=== PATIENT | female | born 1960 | race Caucasian/White ===

== ENCOUNTER → 2022-05-11 11:07 | Outpatient (BNVA) | payer BC, SELFPAY | PROVIDERS: PCP Family Medicine; Visit Provider Student in an Organized Health Care Education/Training Program | DX: Z13.89 Encounter for screening for other disorder (principal) ==

== ENCOUNTER 2022-07-27 12:01 | Outpatient (REF) | payer BC, SELFPAY ==
[2022-07-27 12:26] LABS: MANUAL DIFF FLAG NO
[2022-07-27 12:59] LABS: Basophils Percent Auto 0.5 % (0-2); Eosinophils Absolute Auto 0.1 X10*3/uL (0.0-0.4); Eosinophils Percent Auto 1.6 % (0-4); Hematocrit 34.8 % (37.0-47.0); Hemoglobin 11.2 g/dl (12.0-16.0); Imm Gran Abs Auto 0.01 X10*3/uL (0.00-0.03); Imm Gran Pct Auto 0.2 % (0.0-0.4); Lymphocytes Absolute Auto 1.6 X10*3/uL (1.2-4.9); Lymphocytes Percent Auto 36.1 % (20-40); Mean Corpuscular HGB Conc 32.2 g/dl (31.0-35.0); Mean Corpuscular Hemoglobin 32.7 pg (27.0-33.0); Mean Corpuscular Volume 101.8 fL (80.0-98.0); Mean Platelet Volume 10.2 fL (9.4-12.3); Monocytes Absolute Auto 0.4 X10*3/uL (0.1-1.2); Monocytes Percent Auto 8.6 % (2-11); Neutrophils Absolute Auto 2.3 x10*3/uL (2.0-8.3); Platelet Count 257 X10*3/uL (160-400); Red Blood Count 3.42 X10*6/uL (4.20-5.50); Red Cell Distribution Width 14.8 % (11.0-16.0); White Blood Count 4.3 X10*3/uL (4.8-10.8)
[2022-07-27 13:13] LABS: Appearance Urine Cloudy; Color Urine Yellow; Glucose Urine UA Negative (Negative); Leukocyte Esterase Urine Negative (Negative); Nitrite Urine Negative (Negative); PH 6.5 (5.0-9.0); Specific Gravity - Urine >= 1.030 (1.005-1.025); Urine Blood Negative (Negative); Urine Ketones Trace mg/dL (Negative); Urine Protein Trace mg/dL (Neg-Trace)
[2022-07-27 13:21] LABS: Bacteria Urine None Seen (None Seen); Hyaline Casts Urine 0-2 /LPF (0-2); RBC Urine 0-2 /HPF (0-2); Squamous Epithelial Cell Urine 0-2 /HPF (0-2); WBC Urine 0-5 /HPF (0-5)
[2022-07-27 13:39] LABS: Alanine Aminotransferase 123 U/L (0-31); Albumin Level 4.1 g/dL (3.5-5.0); Alkaline Phosphatase 80 U/L (39-117); Anion Gap 12 (12-20); Aspartate Amino Transferase 87 U/L (5-31); Bilirubin Total 0.4 mg/dL (0.0-1.0); Blood Urea Nitrogen 16 mg/dL (9-16); C Reactive Protein 0.34 mg/dL (< or = 0.50); Calcium 9.2 mg/dL (8.4-10.2); Carbon Dioxide 26 mmol/L (22-29); Chloride 108 mmol/L (96-108); Estimated Glomerular Filt Rate > 60; Glucose Random 85 mg/dL (60-115); Potassium 4.3 mmol/L (3.3-5.1); Rheumatoid Factor < 13.0 IU/mL (<15.0); Sodium 142 mmol/L (135-145); Total Protein 6.8 g/dL (6.5-8.0)
[2022-07-27 13:39] LABS: Creatinine Urine 150.55 mg/dL; Total Protein Urine Random < 7 mg/dL (<12)
[2022-07-27 13:45] LABS: HBS Num1 0.34 mIU/mL (0-7.99); HBc Num1 0.08 S/CO (0.00-0.79); Hepatitis A Antibody IgM 0.21 Index (0-0.79); Hepatitis B Core Antibody Nonreactive (Nonreactive); Hepatitis B Surface Antigen Negative (Negative); ~HepC Num1 0.12 S/CO (0.00-0.79); ~Hepatitis A Antibody IgM Nonreactive (Nonreactive); ~Hepatitis B Surface Antibody NONREACTIVE (Nonreactive); ~Hepatitis C Antibody Nonreactive (Nonreactive)
[2022-07-27 13:53] LABS: Erythrocyte Sedimentation Rate 14 MM/HR (0-20)
[2022-07-29 19:03] LABS: Anti DNA DS Antibody 3 IU/mL; Antibody to SS-A Antigen <1.0 NEG AI (<1.0 NEG); Antibody to SS-B Antigen <1.0 NEG AI (<1.0 NEG); SM/Ribonucleoprotein Ab >8.0 POS AI (<1.0 NEG); Smith Protein <1.0 NEG AI (<1.0 NEG)
[2022-07-30 01:59] LABS: TS Negative Control Passed; TS Panel A 1; TS Panel B 2; TS Positive Control Passed; TSpotTB Negative (Negative)
[2022-08-01 00:03] LABS: Prot Elec - Albumin 4.2 g/dL (3.8-4.8); Prot Elec - Alpha1 0.2 g/dL (0.2-0.3); Prot Elec - Alpha2 0.6 g/dL (0.5-0.9); Prot Elec - Beta 1 0.4 g/dL (0.4-0.6); Prot Elec - Beta 2 0.3 g/dL (0.2-0.5); Prot Elec - Gamma 1.1 g/dL (0.8-1.7); Prot Elec - Total Protein 6.8 g/dL (6.1-8.1)
[2022-08-02 23:02] LABS: Hexagonal Phase Neutralization Weak Positive (Negative)
[2022-08-02 23:33] LABS: PTT (LAC) Screen 47 sec (<=40); Thrombin Clotting Time 20 sec (13-19)
[2022-08-03 04:38] LABS: IgA 257 mg/dL (70-320); IgG 1131 mg/dL (600-1540); IgM 148 mg/dL (50-300)
[2022-08-03 07:48] LABS: Beta-2 Glycoprotein IgA 2.4 U/mL (<20.0); Beta-2 Glycoprotein IgG <2.0 U/mL (<20.0); Beta-2 Glycoprotein IgM <2.0 U/mL (<20.0)
[2022-08-03 10:59] LABS: Cyclic Citrullinated Peptide <16 UNITS
[2022-08-03 13:29] LABS: Centromere Protein A Ab <11 SI (<11); Centromere Protein B Ab <11 SI (<11); Fibrillarin Ab <11 SI (<11); PM SCL 100 Ab <11 SI (<11); PM SCL 75 Ab <11 SI (<11); RNA Polymerase III RP11 Ab <11 SI (<11); RNA Polymerase III RP155 Ab <11 SI (<11); SCL-70 Extractable Nuclear Ab <11 SI (<11); Th-To Ab <11 SI (<11); U1 SNRNP RNP 70KD <11 SI (<11); U1 SNRNP RNP A 19 SI (<11); U1 SNRNP RNP C <11 SI (<11)
[2022-08-03 13:42] LABS: DNAds, Crithidia Antibody Negative (Negative)
[2022-08-04 14:08] LABS: Cardiolipin IgG Ab <2.0 GPL-U/mL; Cardiolipin IgM Ab <2.0 MPL-U/mL
[2022-08-07 17:59] LABS: Cytosolic 5'nuc 1A Ab IgG <5 Units; Ej Ab <11 SI (<11); HMGCR Ab IgG <2 CU (<20); Jo-1 Ab <11 SI (<11); MDA5 Ab <11 SI (<11); Mi-2 alpha Ab <11 SI (<11); Mi-2 beta Ab <11 SI (<11); NXP-2 (MJ) Ab <11 SI (<11); Oj Ab <11 SI (<11); Pl-12 Ab <11 SI (<11); Pl-7 Ab <11 SI (<11); SRP Ab <11 SI (<11); TIF1 gamma Ab <11 SI (<11)
[2022-08-09 07:08] LABS: Complement C3 93 mg/dL (83-193)
== END 2022-07-27 12:02 | disposition home or self-care (01) ==
LOC: HO.LAB 12:01
PROVIDERS: PCP Family Medicine; Visit Provider Student in an Organized Health Care Education/Training Program
DX: Z11.59 Encounter for screening for other viral diseases (principal); Z11.7 Encounter for testing for latent tuberculosis infection; D68.61 Antiphospholipid syndrome; M32.9 Systemic lupus erythematosus, unspecified; M35.01 Sjogren syndrome with keratoconjunctivitis; R53.83 Other fatigue; M06.9 Rheumatoid arthritis, unspecified; M34.9 Systemic sclerosis, unspecified; Z72.89 Other problems related to lifestyle
CPT/HCPCS: 36415; 80053; 81001; 82595; 82784; 83516; 83520; 84156; 84165; 84182; 84443; 85025; 85597; 85613; 85652; 85730; 86140; 86146; 86147; 86160; 86200; 86225; 86235; 86255; 86334; 86431; 86481; 86704; 86706; 86709; 86803; 87340

== ENCOUNTER 2022-08-25 13:13 | Outpatient (REF) | payer BC, SELFPAY ==
[2022-08-25 14:31] LABS: Alanine Aminotransferase 57 U/L (0-31); Albumin Level 3.9 g/dL (3.5-5.0); Alkaline Phosphatase 70 U/L (39-117); Anion Gap 11 (12-20); Aspartate Amino Transferase 44 U/L (5-31); Bilirubin Total 0.4 mg/dL (0.0-1.0); Blood Urea Nitrogen 13 mg/dL (9-16); Calcium 9.4 mg/dL (8.4-10.2); Carbon Dioxide 30 mmol/L (22-29); Chloride 106 mmol/L (96-108); Estimated Glomerular Filt Rate > 60; Glucose Random 93 mg/dL (60-115); Potassium 4.4 mmol/L (3.3-5.1); Sodium 143 mmol/L (135-145); Total Protein 6.7 g/dL (6.5-8.0)
== END 2022-08-25 13:14 | disposition home or self-care (01) ==
LOC: HO.LAB 13:13
PROVIDERS: PCP Family Medicine; Visit Provider Student in an Organized Health Care Education/Training Program
DX: R74.01 Elevation of levels of liver transaminase levels (principal)
CPT/HCPCS: 36415; 80053

== ENCOUNTER 2022-10-10 12:03 | Outpatient (REF) | payer BC, SELFPAY ==
[2022-10-10 12:15] LABS: MANUAL DIFF FLAG NO
[2022-10-10 13:49] LABS: Basophils Absolute Auto 0.1 X10*3/uL (0.0-0.2); Basophils Percent Auto 1.1 % (0-2); Eosinophils Absolute Auto 0.1 X10*3/uL (0.0-0.4); Hematocrit 36.8 % (37.0-47.0); Hemoglobin 11.9 g/dl (12.0-16.0); Imm Gran Abs Auto 0.01 X10*3/uL (0.00-0.03); Imm Gran Pct Auto 0.2 % (0.0-0.4); Lymphocytes Absolute Auto 1.6 X10*3/uL (1.2-4.9); Lymphocytes Percent Auto 35.5 % (20-40); Mean Corpuscular HGB Conc 32.3 g/dl (31.0-35.0); Mean Corpuscular Hemoglobin 32.2 pg (27.0-33.0); Mean Corpuscular Volume 99.7 fL (80.0-98.0); Monocytes Absolute Auto 0.8 X10*3/uL (0.1-1.2); Monocytes Percent Auto 17.5 % (2-11); Neutrophils Absolute Auto 1.9 x10*3/uL (2.0-8.3); Neutrophils Percent Auto 43.7 % (45-73); Platelet Count 228 X10*3/uL (160-400); Red Blood Count 3.69 X10*6/uL (4.20-5.50); Red Cell Distribution Width 13.7 % (11.0-16.0); White Blood Count 4.4 X10*3/uL (4.8-10.8)
[2022-10-10 14:33] LABS: Erythrocyte Sedimentation Rate 16 MM/HR (0-20)
[2022-10-11 02:15] LABS: Alanine Aminotransferase 24 U/L (0-31); Albumin Level 3.9 g/dL (3.5-5.0); Alkaline Phosphatase 81 U/L (39-117); Anion Gap 10 (12-20); Aspartate Amino Transferase 27 U/L (5-31); Bilirubin Total 0.3 mg/dL (0.0-1.0); Blood Urea Nitrogen 18 mg/dL (9-16); Calcium 9.1 mg/dL (8.4-10.2); Carbon Dioxide 29 mmol/L (22-29); Chloride 108 mmol/L (96-108); Estimated Glomerular Filt Rate 51; Potassium 3.9 mmol/L (3.3-5.1); Sodium 143 mmol/L (135-145); Total Protein 7.1 g/dL (6.5-8.0)
[2022-10-11 08:15] LABS: Glucose Random 46 mg/dL (60-115)
== END 2022-10-10 12:04 | disposition home or self-care (01) ==
LOC: HO.LAB 12:03
PROVIDERS: PCP Family Medicine; Visit Provider Student in an Organized Health Care Education/Training Program
DX: M35.1 Other overlap syndromes (principal); R74.01 Elevation of levels of liver transaminase levels
CPT/HCPCS: 36415; 80053; 85025; 85652; 86140

== ENCOUNTER 2022-11-07 14:20 | Outpatient (AMB) | payer BC, SELFPAY ==
--- NOTE | 2022-11-07 14:23 | MHC.OFFVIS ---
Intake Vital Signs 11/07/22 14:25 Height 5 ft 4 in Weight 176 lb 5.917 oz BMI 30.3 BP 122/68 Blood Pressure Location Rt brachial Position Sitting Pulse 80 Pulse Source Pulse Oximeter Temp 97.1 F Temp Source Skin Pulse Oximetry (%) 98 Intake Visit Reasons: Sjogren's/MCTD Student Services Rep Required: No Allergies No Known Allergies Allergy (Verified 11/07/22 14:25) Medication List - Last Reconciled 11/07/22 by Jackelin Fontenot MD cevimeline 1 cap PO TID cholecalciferol (vitamin D3) 25 mcg PO DAILY cyclosporine 0.05% drps ophthalmic (eye) folic acid 2 mg PO DAILY gabapentin 800 mg (2 x 400 mg) PO BEDTIME hydroxychloroquine (Plaquenil) 200 mg PO BID methotrexate sodium 22.5 mg (9 x 2.5 mg) PO QWEEK trazodone 50 mg PO BEDTIME PRN HPI HPI Comments History of Present Illness Details 62-year-old female with an overlap syndrome (MCTD/Sjogren's/some features of SLE) presents for follow-up. She has been holding her methotrexate for the last 7-8 weeks. She states that she feels a little worse overall. She states that she has been having morning stiffness of her hands. Similar to how her symptoms were when she was initially diagnosed but not nearly as severe. Morning stiffness lasts about 30 minutes. Denies any significant swelling. States that she is having more brain fog and forgetfulness. She did not have brain fog with methotrexate. Also states that her dry mouth is a little bit worse. States that cevimeline causes nighttime incontinence and she stopped using it. Denies any cough or shortness of breath. Denies any skin rashes. Initial history: This is a 62-year-old female who was referred for evaluation of mixed connective tissue disease. Her previous grain spouter left the practice. Patient stated that she has had Raynaud's since her 20s and 30s. In 2017 she started having progressively worsening arthralgias. She was diagnosed with mixed connective tissue disease. She was started on hydroxychloroquine with some improvement and methotrexate was added around 2019 with good response. She was diagnosed with Sjogren's around 2019 due to dry eyes and dry mouth. She is currently on Restasis eyedrops and uses cevimeline for dry mouth once daily. Patient's symptoms have been fairly well controlled on methotrexate and hydroxychloroquine. She had a COVID infection 2 and half weeks ago with fevers, worsening body aches and, shortness, loss of taste and smell some cough. Her symptoms are improving. Stated that Raynaud symptoms were worse when she had COVID. She took Paxlovid course. Patient also mentions that she had abrupt onset of bilateral hearing loss in her 40s. No cause for her hearing loss was determined. Eventually it was attributed to an autoimmune condition. Patient denies dysphagia. She denies any shortness of breath. At baseline patient is able to climb 24 steps at home without shortness of breath [facility] Medical History (Updated 11/07/22 @ 15:41 by Jackelin Fontenot MD) Transaminitis Palpitations Ovarian cyst Hearing loss Surgical History Hx of knee surgery Hx of tonsillectomy Family History Maternal Grandmother Raynaud disease Osteoarthritis Sister Rheumatoid arthritis Mother Colon cancer Father Congestive heart failure Social History Alcohol intake: current Alcohol intake frequency: other Patient Tobacco Use Status: Current someday Tobacco user e-Cigarette/Vaping Use: Never Used Review of Systems Const Reports fatigue and Reports weakness Eyes Reports dry eyes ENT Reports dizziness and Reports dry mouth Card Reports no additional complaints and Reports dyspnea Resp Reports dyspnea GI Reports no additional complaints Musc Reports arthralgias and Reports stiffness Neuro Reports dizziness and Reports weakness Endo Reports fatigue Physical Exam Vital Signs: Last Vital Signs Temp 97.1 F 11/07/22 14:25 Pulse 80 11/07/22 14:25 BP 122/68 11/07/22 14:25 Pulse Ox 98 11/07/22 14:25 BMI result Body Mass Index 30.3 Const General: cooperative, healthy appearing and comfortable Nutritional Appearance: overweight Limitations: no limitations HEENT Other: Reduced hearing bilaterally. Uses hearing aids bilaterally Head: Yes normocephalic and Yes atraumatic Mouth: Normal oral and palatal mucosa present Resp Effort & Inspection: normal respiratory effort and able to speak in complete sentences Auscultation: clear to auscultation bilaterally Cardio Rate: regular rate Rhythm: regular rhythm Heart sounds: S1 normal heart sound present and S2 normal heart sound present GI Inspection: No distended Palpation (GI): Soft to palpation and nontender Skin Other: Dry skin on her fingers and palms Extrem Other: No active synovitis. Normal nailfold capillaroscopy Results Reviewed Results Reviewed: DEXA 09/2021? Impression L-spine T-score -0.1 Left femoral neck T-score -1.1 Right total right proximal femur T-score -0.6 labs 12/2021 C4 20 (17-52) C3 80 (90-207) DsDNA 8 (>4 normal 5-9 indeterminate >10 positive) CRP normal ESR normal BMP normal CBC unremarkable Assessment & Plan Assessment & Plan (1) Mixed connective tissue disease: Comment: dx 2017 (Raynaud's, arthralgias, dry eye under states this, dry mouth, fatigue, +++ STUDENT EDUCATION SPECIALIST, 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) HCQ 2017 MTX added 2019 effective Code(s): M35.1 - Other overlap syndromes Plan: This is a 62-year-old female with an overlap syndrome including mixed connective tissue disease and Sjogren's, some features of SLE who presents for follow-up. Patient states that she is doing worse in regards to her fatigue, brain fog, arthralgias when methotrexate was discontinued. Will restart methotrexate at a lower dose. Start methotrexate 15 mg once weekly and folic acid daily. Continue hydroxychloroquine 200 mg Twice daily We discussed screening tests for I LD and pulmonary arterial hypertension given her diagnosis of MCTD and Sjogren's. Will order PFTs and a 2D echo Labs before next visit in 3 months (2) Sjogren syndrome with keratoconjunctivitis: Code(s): M35.01 - Sjogren syndrome with keratoconjunctivitis Plan: Patient currently on cyclosporine eyedrops. Continue to follow with Ophthalmology. Continue Biotene mouthwash. Cevimeline was minimally helpful and caused nocturnal incontinence. (3) Raynaud disease: Code(s): I73.00 - Raynaud's syndrome without gangrene Qualifiers: Raynaud?s-associated gangrene presence: without gangrene Qualified Code(s): I73.00 - Raynaud's syndrome without gangrene Plan: Symptoms are well controlled using conservative measures such as gloves and heated mittens. Plan I spent 27 minutes reviewing patient's chart, evaluating patient, ordering diagnostic workup, counseling patient and documenting in the chart Orders: Orders Comprehensive Met. Panel 3 Months M35.1 - Other overlap syndromes Protein Creatinine Ratio, Ur 3 Months M35.1 - Other overlap syndromes PFT pulmonary function test Today R06.00 - Dyspnea, unspecified CA echo transthoracic complete Today R06.00 - Dyspnea, unspecified Complete Blood Count Auto Diff 3 Months M35.1 - Other overlap syndromes Erythrocyte Sedimentation Rate 3 Months M35.1 - Other overlap syndromes Anti DNA DS Antibody 3 Months M35.1 - Other overlap syndromes Complement C3 3 Months M35.1 - Other overlap syndromes Complement C4 3 Months M35.1 - Other overlap syndromes UA w Microscopic 3 Months M35.1 - Other overlap syndromes Medications: New methotrexate sodium 15 mg (6 x 2.5 mg) PO QWEEK 72 tabs 0RF Coding Level of Care Code Est Pt Level 4 (64115) Diagnoses Mixed connective tissue disease M35.1 Sjogren syndrome with keratoconjunctivitis M35.01 Raynaud's disease without gangrene I73.00 Raynaud?s-associated gangrene presence: without gangrene
[2022-11-07 14:25] VITALS: BP 122/68; PULSE 80; TEMP 36.2; O2SAT 98; BMI 30.3
== END 2022-11-07 15:03 | disposition home or self-care (01) ==
PROVIDERS: PCP Family Medicine; Referring Provider Family Medicine; Visit Provider Student in an Organized Health Care Education/Training Program
DX: M35.1 Other overlap syndromes (principal); M35.01 Sjogren syndrome with keratoconjunctivitis; I73.00 Raynaud's syndrome without gangrene
CPT/HCPCS: 99214

== ENCOUNTER → 2022-11-07 14:20 | Outpatient (BNVA) | payer BC, SELFPAY | PROVIDERS: PCP Family Medicine; Referring Provider Family Medicine; Visit Provider Student in an Organized Health Care Education/Training Program ==

== ENCOUNTER → 2022-12-20 13:59 | Outpatient (REF) | payer BC, SELFPAY ==
--- NOTE | 2022-12-20 14:01 | CA_ITS ---
Transthoracic Echocardiogram Patient (Last, First, Middle): Caroline Cabrera, Gender: Female Date of : 1960 Age: 62 Procedure Date: 12/20/2022 Procedure Type: Transthoracic Echocardiogram Location: OP Height: 162.56 cm Weight: 77.11 kg BSA: 1.83 m2 Heart Rate: bpm BP: 130 / 70 mmHg Crime Specialist: ALEXYS/BASSAM Referring MD: Jackelin Fontenot MD Pattern Grader: Tyrone Ware MD Symptoms: R06.00 - Dyspnea, unspecified Study Quality: Fair ECG Rhythm: Sinus Conclusions: - 1. Normal LV systolic and diastolic function 2. Mild mitral regurgitation 3. Normal RV systolic pressure 4. No gross pericardial effusion Findings Left Ventricle Normal left ventricular size, thickness, and systolic function. The visually estimated ejection fraction is between 55-60%. Spectral Doppler is indicative of a normal filling pattern. Peak GLS is -19.7%, within normal limits. Right Ventricle Normal right ventricular cavity size and systolic function. Atria Both atria are normal in size. There is no evidence of interatrial shunt. Aortic Valve Normal aortic valve structure and function. There is no aortic valve stenosis. There is no aortic valve regurgitation. Mitral Valve Normal mitral valve structure and function. There is mild mitral valve regurgitation. There is no mitral valve stenosis. Pulmonic Valve The pulmonic valve is likely normal. There is trace pulmonic valve regurgitation. Tricuspid Valve Normal tricuspid valve structure. There is trace tricuspid valve regurgitation. The right ventricular systolic pressure is normal. The right ventricular systolic pressure is 19 mmHg. Normal right atrial pressure. There is no evidence of pulmonary hypertension. Great Vessels All visible segments of the aorta are normal in size. The pulmonary artery was not well visualized. Venous The inferior vena cava is normal in size and collapses greater than 50% with inspiration. Pericardium/Pleural There is no evidence of pericardial effusion. Prior Study Comparison No significant change compared to prior study dated: 06/21/2019. Measurements 2D Linear Measurements IVSd: 0.89 0.6-0.9/0.6-1.0 cm LVIDd: 4.74 3.9-5.3/4.2-5.9 cm LVIDd Index: 2.59 2.4-3.2/2.2-3.1 cm/m2 LVIDs: 3.20 2.0-3.6 cm LVPWd: 1.05 0.7-1.1 cm LA Diam: 3.90 2.7-3.8/3.0-4.0 cm LAIDs Index: 2.13 1.5-2.3 cm/m2 LV Mass: 199.66 67-162/88-224 g LV Mass Index: 109.11 43-95/49-115 g/m2 LVOT Diam: 2.20 3.0+(-)1.3 cm 2D Systolic Function EF 4C: 60.40 >55% EF 2C: 52.50 >55% EF BiP: 56.50 >55% Mitral Valve MV Pk E: 0.66 MV PK A: 0.59 MV Decel Time: 218.00 E/A: 1.10 E'Lateral: 9.46 E'Medial: 6.74 E/E' Med: 9.70 E/E' Lat: 6.90 PHT: 64.00 MVA PHT: 3.44 Decel Pacific: 3.01 Aortic Valve AoV Pk Efren: 1.23 AoV Mn Efren: 0.87 AoV VTI: 0.29 AoV Pk Grad: 6.00 Aov Mn Grad: 3.00 KACIE Cont.VTI: 2.66 LVOT LVOT Pk Efren: 1.01 LVOT Mn Efren: 0.63 LVOT VTI: 0.20 LVOT Pk Grad: 4.00 LVOT Mn Grad: 2.00 LVOT Diam: 2.20 LVOT Area: 3.80 Diastolic Function MV Pk E: 0.66 MV Pk A: 0.59 E/A: 1.10 E'Medial: 6.74 E/E' Med: 9.70 E' Laterial: 9.46 E/E' Lat: 6.90 Right Ventricle TAPSE (mm): 22.80 TVS' Efren: 11.00 Tricuspid Valve TR Pk Efren: 2.02 TR Pk Grad: 16.00 RA Press: 3.00 RVSP: 19.00 Great Vessels Aorta Sinus of Valsalva: 3.17 2.0-3.[address] Ridge: 2.34 1.7-3.4 cm Ao Asc: 3.00 2.1-3.4 cm Updated in Other Vendor System with Status of Final Tyrone Ware MD electronically signed on 12/21/2022 11:54:01 AM with status of Final
== END ==
LOC: HO.CARD 13:59
PROVIDERS: PCP Family Medicine; Visit Provider Student in an Organized Health Care Education/Training Program
DX: R06.00 Dyspnea, unspecified (principal)
CPT/HCPCS: 93306; 93356

== ENCOUNTER → 2022-12-20 14:01 | Outpatient (BNV) | payer BC, SELFPAY | PROVIDERS: PCP Family Medicine; Visit Provider Internal Medicine Cardiovascular Disease | DX: I34.0 Nonrheumatic mitral (valve) insufficiency (principal) | CPT/HCPCS: 93306 ==

== ENCOUNTER 2023-01-09 13:28 | Outpatient (REF) | payer BC, SELFPAY ==
--- NOTE | 2023-01-09 14:28 | PFT_ITS ---
Forced vital capacity 101%, FEV1 84%, FEV1 over FVC ratio is 66. TMR23-90 43% and MVV 80%. Post bronchodilator therapy, there is a small, but significant improvement in FEV1 and HTT34-88. Total lung capacity 89%. Residual volume 79%. Diffusion capacity 89%. CONCLUSION: Moderately severe obstructive airway disorder. Partial reversibility after bronchodilator therapy is noted. Findings consistent with asthma/COPD overlap syndrome. Clinical correlation is recommended. Isaias Shay MD MSB/MODL / [id number]
== END 2023-01-09 13:29 | disposition home or self-care (01) ==
LOC: HO.RESP 13:28
PROVIDERS: PCP Family Medicine; Visit Provider Student in an Organized Health Care Education/Training Program
DX: R06.00 Dyspnea, unspecified (principal)
CPT/HCPCS: 94010; 94727; 94729

== ENCOUNTER → 2023-01-09 14:28 | Outpatient (BNV) | payer BC, SELFPAY | PROVIDERS: PCP Family Medicine; Visit Provider Internal Medicine | DX: R06.09 Other forms of dyspnea (principal) | CPT/HCPCS: 94060; 94727; 94729 ==

== ENCOUNTER 2023-01-27 12:56 | Outpatient (REF) | payer BC, SELFPAY ==
[2023-01-27 13:14] LABS: MANUAL DIFF FLAG NO
[2023-01-27 13:40] LABS: Basophils Percent Auto 0.8 % (0-2); Eosinophils Absolute Auto 0.1 X10*3/uL (0.0-0.4); Eosinophils Percent Auto 1.8 % (0-4); Hematocrit 36.2 % (37.0-47.0); Hemoglobin 11.8 g/dl (12.0-16.0); Lymphocytes Absolute Auto 1.6 X10*3/uL (1.2-4.9); Lymphocytes Percent Auto 41.8 % (20-40); Mean Corpuscular HGB Conc 32.6 g/dl (31.0-35.0); Mean Corpuscular Volume 98.1 fL (80.0-98.0); Mean Platelet Volume 11.2 fL (9.4-12.3); Monocytes Absolute Auto 0.5 X10*3/uL (0.1-1.2); Monocytes Percent Auto 11.9 % (2-11); Neutrophils Absolute Auto 1.7 x10*3/uL (2.0-8.3); Neutrophils Percent Auto 43.7 % (45-73); Platelet Count 190 X10*3/uL (160-400); Red Blood Count 3.69 X10*6/uL (4.20-5.50); Red Cell Distribution Width 15.2 % (11.0-16.0); White Blood Count 3.9 X10*3/uL (4.8-10.8)
[2023-01-27 14:15] LABS: Erythrocyte Sedimentation Rate 14 MM/HR (0-20)
[2023-01-27 14:22] LABS: Appearance Urine Clear; Color Urine Yellow; Glucose Urine UA Negative (Negative); Leukocyte Esterase Urine Negative (Negative); Nitrite Urine Negative (Negative); PH 5.5 (5.0-9.0); Urine Blood Negative (Negative); Urine Ketones Negative (Negative); Urine Protein Negative (Neg-Trace)
[2023-01-27 14:28] LABS: Alanine Aminotransferase 36 U/L (0-31); Albumin Level 3.9 g/dL (3.5-5.0); Alkaline Phosphatase 78 U/L (39-117); Anion Gap 11 (12-20); Aspartate Amino Transferase 42 U/L (5-31); Bilirubin Total 0.4 mg/dL (0.0-1.0); Blood Urea Nitrogen 14 mg/dL (9-16); Carbon Dioxide 28 mmol/L (22-29); Chloride 108 mmol/L (96-108); Estimated Glomerular Filt Rate 58; Glucose Random 88 mg/dL (60-115); Potassium 4.1 mmol/L (3.3-5.1); Sodium 143 mmol/L (135-145)
[2023-01-27 14:42] LABS: RBC Urine 0-2 /HPF (0-2); Squamous Epithelial Cell Urine 0-2 /HPF (0-2); WBC Urine 0-5 /HPF (0-5)
[2023-01-27 14:43] LABS: Bacteria Urine None Seen (None Seen); Hyaline Casts Urine 0-2 /LPF (0-2)
[2023-01-27 14:51] LABS: Creatinine Urine 125.88 mg/dL; Total Protein Urine Random < 7 mg/dL (<12)
[2023-01-30 18:18] LABS: Complement C3 62 mg/dL (83-193)
[2023-01-30 19:13] LABS: Anti DNA DS Antibody 3 IU/mL
[2023-02-01 23:24] LABS: Hexagonal Phase Neutralization Positive (Negative)
[2023-02-02 00:04] LABS: PTT (LAC) Screen 47 sec (<=40); Thrombin Clotting Time 20 sec (13-19)
== END 2023-01-27 12:57 | disposition home or self-care (01) ==
LOC: HO.LAB 12:56
PROVIDERS: PCP Family Medicine; Visit Provider Student in an Organized Health Care Education/Training Program
DX: M35.1 Other overlap syndromes (principal); D68.61 Antiphospholipid syndrome
CPT/HCPCS: 36415; 80053; 81001; 82570; 84156; 85025; 85597; 85598; 85613; 85652; 85670; 85730; 86160; 86225

== ENCOUNTER 2023-02-01 14:28 | Outpatient (AMB) | payer BC, SELFPAY ==
--- NOTE | 2023-02-01 14:32 | MHC.OFFVIS ---
Intake Vital Signs 02/01/23 14:34 Height 5 ft 4 in Weight 179 lb 10.828 oz BMI 30.8 BP 134/62 Blood Pressure Location Lt brachial Position Sitting Pulse 81 Pulse Source Pulse Oximeter Temp 97 F Temp Source Skin Pulse Oximetry (%) 98 Oxygen Delivery Method Room Air Intake Visit Reasons: Sjogren's/MCTD Intake Note: Pt last seen 11/07/22, presents today for follow up and test results. On mtx and plaquenil. Would like to discuss test results today. 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 On methotrexate 15 mg weekly and hydroxychloroquine 200 mg Twice daily. Patient states that since starting methotrexate the generalized weakness, brain fog, joint pain is improved however she has been having worsening dryness of her mouth and eyes. Doing about the same otherwise Initial history: This is a 62-year-old female who was referred for evaluation of mixed connective tissue disease. 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 Patient stated that she has had Raynaud's since her 20s and 30s. In 2017 she started having progressively worsening arthralgias. She was diagnosed with mixed connective tissue disease. She was started on hydroxychloroquine with some improvement and methotrexate was added around 2019 with good response. She was diagnosed with Sjogren's around 2019 due to dry eyes and dry mouth. She is currently on Restasis eyedrops and uses cevimeline for dry mouth once daily. Patient's symptoms have been fairly well controlled on methotrexate and hydroxychloroquine. She had a COVID infection 2 and half weeks ago with fevers, worsening body aches and, shortness, loss of taste and smell some cough. Her symptoms are improving. Stated that Raynaud symptoms were worse when she had COVID. She took Paxlovid course. Patient also mentions that she had abrupt onset of bilateral hearing loss in her 40s. No cause for her hearing loss was determined. Eventually it was attributed to an autoimmune condition. Patient denies dysphagia. She denies any shortness of breath. At baseline patient is able to climb 24 steps at home without shortness of breath PFSH Medical History Transaminitis Palpitations Ovarian cyst Hearing loss Surgical History Hx of knee surgery Hx of tonsillectomy Family History Maternal Grandmother Raynaud disease Osteoarthritis Sister Rheumatoid arthritis Mother Colon cancer Father Congestive heart failure Social History Alcohol intake: current Alcohol intake frequency: other Patient Tobacco Use Status: Current someday Tobacco user e-Cigarette/Vaping Use: Never Used Review of Systems Const Denies fatigue and Denies fever(s) Eyes Reports dry eyes ENT Reports dry mouth Card Reports no additional complaints and Reports dyspnea on exertion Resp Reports dyspnea on exertion GI Reports no additional complaints Musc Denies arthralgias and Denies joint swelling Endo Denies fatigue Physical Exam Vital Signs: Last Vital Signs Temp 97 F 02/01/23 14:34 Pulse 81 02/01/23 14:34 BP 134/62 02/01/23 14:34 Pulse Ox 98 02/01/23 14:34 Oxygen Delivery Method Room Air 02/01/23 14:34 BMI result Body Mass Index 30.8 Const General: cooperative, healthy appearing and comfortable Nutritional Appearance: overweight Limitations: no limitations HEENT Other: Reduced hearing bilaterally. Uses hearing aids bilaterally Head: Yes normocephalic and Yes atraumatic Mouth: Normal oral and palatal mucosa present Resp Effort & Inspection: normal respiratory effort and able to speak in complete sentences Auscultation: clear to auscultation bilaterally Cardio Rate: regular rate Rhythm: regular rhythm Heart sounds: S1 normal heart sound present and S2 normal heart sound present GI Inspection: No distended Palpation (GI): Soft to palpation and nontender Skin Other: Dry skin on her fingers and palms Extrem Other: No active synovitis. Normal nailfold capillaroscopy Results Reviewed Results Reviewed: DEXA 09/2021? 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 Methotrexate was restarted last visit with improvement in break fog, fatigue, joint pain but patient developed recurrent transaminitis. This is likely related to methotrexate. Will need to switch DMARDs. DC methotrexate and folic acid. Discussed risks and benefits of Benlysta. Patient agreed to proceed. Will start prior authorization for Benlysta Continue hydroxychloroquine 200 mg Twice daily She is on cyclosporin eyedrops for dry eyes put? Uses throat coat tea for dry mouth which seems to be helpful 2D echo and PFT were done to screen for ILD and PAH. 2D echo was unremarkable. PFTs showed no signs suggestive of restrictive lung disease Labs before next visit in 3 months (2) Sjogren syndrome with keratoconjunctivitis: Code(s): M35.01 - Sjogren syndrome with keratoconjunctivitis Plan: Patient currently on cyclosporine eyedrops. Continue to follow with Ophthalmology. Continue Biotene mouthwash. Cevimeline was minimally helpful and caused nocturnal incontinence. (3) Raynaud disease: Code(s): I73.00 - Raynaud's syndrome without gangrene Qualifiers: Raynaud?s-associated gangrene presence: without gangrene Qualified Code(s): I73.00 - Raynaud's syndrome without gangrene Plan: Symptoms are well controlled using conservative measures such as gloves and heated mittens. (4) Long-term use of hydroxychloroquine: Code(s): Z79.899 - Other halfway (current) drug therapy Plan: Patient follows up regularly with Ophthalmology. Advised patient to ask her didactic instructor to send me records (5) Shortness of breath on exertion: Code(s): R06.02 - Shortness of breath Plan: Patient complaining of some chest tightness on exertion. PFT showed mild obstructive disease. She has an appointment with Pulmonary Plan I spent 45 minutes reviewing patient's chart, evaluating patient, ordering diagnostic workup, counseling patient and documenting in the chart Orders: Orders Complement C3 3 Months M35.1 - Other overlap syndromes DNA Double Stranded-Crithidia 3 Months M35.1 - Other overlap syndromes Protein Creatinine Ratio, Ur 3 Months M35.1 - Other overlap syndromes Comprehensive Met. Panel 3 Months M35.1 - Other overlap syndromes Anti DNA DS Antibody 3 Months M35.1 - Other overlap syndromes Complement C4 3 Months M35.1 - Other overlap syndromes UA w Microscopic 3 Months M35.1 - Other overlap syndromes Complete Blood Count Auto Diff 3 Months M35.1 - Other overlap syndromes C Reactive Protein 3 Months M35.1 - Other overlap syndromes Erythrocyte Sedimentation Rate 3 Months M35.1 - Other overlap syndromes Medications: Discontinued methotrexate sodium Discontinued Reason: Doctor's Order 15 mg (6 x 2.5 mg) PO QWEEK 72 tabs 0RF Coding Level of Care Code Est Pt Level 4 (06192) Diagnoses Lupus (systemic lupus erythematosus) M32.9 Sjogren syndrome with keratoconjunctivitis M35.01 Raynaud's disease without gangrene I73.00 Raynaud?s-associated gangrene presence: without gangrene Long-term use of hydroxychloroquine Z79.899 Shortness of breath on exertion R06.02
[2023-02-01 14:34] VITALS: BP 134/62; PULSE 81; TEMP 36.1; O2SAT 98; BMI 30.8
== END 2023-02-01 15:04 | disposition home or self-care (01) ==
LOC: HO.RHE 14:28
PROVIDERS: PCP Family Medicine; Visit Provider Student in an Organized Health Care Education/Training Program
DX: M32.9 Systemic lupus erythematosus, unspecified (principal); M35.01 Sjogren syndrome with keratoconjunctivitis; I73.00 Raynaud's syndrome without gangrene; Z79.899 Other long term (current) drug therapy; R06.02 Shortness of breath
CPT/HCPCS: 99214

== ENCOUNTER → 2023-02-01 14:28 | Outpatient (BNVA) | payer BC, SELFPAY | PROVIDERS: PCP Family Medicine; Visit Provider Student in an Organized Health Care Education/Training Program ==

== ENCOUNTER 2023-03-03 13:14 | Outpatient (AMB) | payer BC, SELFPAY ==
--- NOTE | 2023-03-03 13:21 | MHC.OFFVIS ---
Intake Vital Signs 03/03/23 13:22 Height 5 ft 4 in Weight 179 lb 10.828 oz BMI 30.8 BP 118/60 Blood Pressure Location Lt brachial Position Sitting Pulse 77 Pulse Source Pulse Oximeter Pulse Oximetry (%) 97 Oxygen Delivery Method Room Air Intake Visit Reasons: Chronic obstructive pulmonary disease Access Lead Required: No Allergies No Known Allergies Allergy (Verified 03/03/23 13:25) HPI HPI Comments History of Present Illness Details The patient is here for a pulmonary evaluation. The patient is a 62 year woman with a known history of a mixed connective tissue disorder being followed closely by Rheumatology. She had been on methotrexate for a long time however, there was some liver issues and therefore now be switching over to a new agent, Benlysta. She has also been on the hydrochloroquine which she tolerates well. She notices that time she has some episodes of chest tightness. Substernal pressure. This is intermittent. Sometimes aggravated by cold air sometimes by exercise. She was unsure if it was hard or her lungs. She did undergo a CT scan of the chest some where it could Freddy. I will request the report. In addition to that she underwent an echocardiogram which is reassuring. The patient also had pulmonary function studies. The PFTs were personally by me demonstrating what appears to be a partially reversible obstruction. It also significant airway disease this is suspicious of uncontrolled asthma or in her case for likely bronchiolitis related to her underlying connective tissue disease. In any case it will be still treated similarly so therefore will start her on respiratory therapy. If the patient does not respond to the therapy then we can consider additional testing at that point. I am going to prescribe her Symbicort. I did recommend she start Symbicort 1 puff twice a day as needed. She can always increase it to 2 puffs if she needs additional medication. PFSH Medical History Transaminitis Palpitations Ovarian cyst Hearing loss Surgical History Hx of knee surgery Hx of tonsillectomy Family History Maternal Grandmother Raynaud disease Osteoarthritis Sister Rheumatoid arthritis Mother Colon cancer Father Congestive heart failure Social History Alcohol intake: current Alcohol intake frequency: other Patient Tobacco Use Status: Current someday Tobacco user e-Cigarette/Vaping Use: Never Used Review of Systems Const Denies fever(s) Eyes Reports dry eyes ENT Reports dry mouth Card Denies chest pain and Reports dyspnea on exertion Resp Reports dyspnea on exertion and Denies wheezing GI Reports no additional complaints Reports no additional complaints Musc Reports as per HPI, Reports joint swelling and Reports stiffness Skin/Breast Denies rash [place]/Lymph Denies lymphadenopathy Aller/Immun Denies wheezing Physical Exam Vital Signs: Last Vital Signs Pulse 77 03/03/23 13:22 BP 118/60 03/03/23 13:22 Pulse Ox 97 03/03/23 13:22 Oxygen Delivery Method Room Air 03/03/23 13:22 BMI result Body Mass Index 30.8 Const General: comfortable HEENT Head: Yes normocephalic Neck Neck: Yes supple Chest Chest palpation & inspection: normal inspection of the chest Resp Effort & Inspection: normal respiratory effort and prolonged expiratory phase Auscultation: wheezes and diminished lung sounds Cardio Heart sounds: S1 normal heart sound present and S2 normal heart sound present GI Palpation (GI): Soft to palpation Skin General skin exam: no rashes or lesions noted Extrem General: Yes no clubbing, cyanosis or edema Immunizations pneumoc 20-sapna conj-dip cr(PF) 0.5 mL IM syringe Performing Provider: Mike Kelly MD Performing Location[place] [facility] Administered by: Venita Devi LPN on 03/03/23 14:01 Dose Route Admin Location Dispensed Lot Number Expiration Date [place] 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 0.5 mL IM Left Deltoid 0.5 mL [id number] 09/27/23 [id number] [employer]/ubitus VIS Given Date VIS Provided VIS Publication Date 03/03/23 Single Vaccine 22 Eligibility Eligibility Date Funding Source Not [facility] Eligible 03/03/23 Private Assessment & Plan Assessment & Plan (1) Shortness of breath on exertion: Code(s): R06.02 - Shortness of breath (2) Obstructive airway disease: Comment: Partially reversible obstruction, Asthma versus follicular bronchiolitis Code(s): J44.9 - Chronic obstructive pulmonary disease, unspecified (3) Mixed connective tissue disease: Comment: dx 2017 (Raynaud's, arthralgias, dry eye under states this, dry mouth, fatigue, +++ 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, 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, low C4) HCQ 2017 MTX added 2019 effective Code(s): M35.1 - Other overlap syndromes Plan Start Symbicort Requesting CT chest from [facility] Exercise as tolerated Prevnar 20 given F/U 2-3 months Orders: Orders Pneumococcal 20 Immunization 03/03/23 Z23 - Encounter for immunization Medications: New budesonide-formoterol 160-4.5 mcg/actuation (Symbicort) 2 puffs inhalation BID 30 days 10.2 grams 11RF J44.89 - Other specified chronic obstructive pulmonary disease Coding Level of Care Code New Pt Level 4 (96767) Diagnoses Shortness of breath on exertion R06.02 Obstructive airway disease J44.9 Mixed connective tissue disease M35.1 Time Spent (min) 40
[2023-03-03 13:22] VITALS: BP 118/60; PULSE 77; O2SAT 97; BMI 30.8
== END 2023-03-03 14:16 | disposition home or self-care (01) ==
PROVIDERS: PCP Family Medicine; Visit Provider Hospitalist
DX: R06.02 Shortness of breath (principal); J44.9 Chronic obstructive pulmonary disease, unspecified; M35.1 Other overlap syndromes
CPT/HCPCS: 99204

== ENCOUNTER → 2023-03-03 13:14 | Outpatient (BNVA) | payer BC, SELFPAY | PROVIDERS: PCP Family Medicine; Visit Provider Hospitalist | DX: J44.9 Chronic obstructive pulmonary disease, unspecified (principal); R06.02 Shortness of breath; M35.1 Other overlap syndromes; Z23 Encounter for immunization | CPT/HCPCS: 90471; 90677 ==

== ENCOUNTER 2023-05-03 09:41 | Outpatient (REF) | payer MEDICARE, SELFPAY ==
[2023-05-03 09:41] VITALS: BP 119/65; PULSE 71; RESP 18; TEMP 36.5; O2SAT 97; BMI 29.2
[2023-05-03] MEDS: Acetaminophen 325 MG TABLET 650 MG PO (10:08)
[2023-05-03] MEDS: diphenhydrAMINE HCL 25 MG CAPSULE PO (10:08)
== END 2023-05-03 09:42 | disposition home or self-care (01) ==
LOC: HO.MDS 09:41
PROVIDERS: Visit Provider Student in an Organized Health Care Education/Training Program
DX: M32.9 Systemic lupus erythematosus, unspecified (principal)
CPT/HCPCS: 96365; J0490; J2930

== ENCOUNTER 2023-05-17 09:32 | Outpatient (REF) | payer BC, SELFPAY ==
[2023-05-17 09:36] VITALS: BP 123/66; PULSE 74; RESP 18; TEMP 37; BMI 30.4
[2023-05-17] MEDS: Acetaminophen 325 MG TABLET 650 MG PO (09:46)
[2023-05-17] MEDS: diphenhydrAMINE HCL 25 MG CAPSULE PO (09:46)
[2023-05-17] MEDS: BELIMUMAB IV (10:51)
[2023-05-17] MEDS: SODIUM CHLORIDE 0.9% IV (10:51)
[2023-05-17 11:55] VITALS: BP 119/63; PULSE 66; RESP 16; O2SAT 99
== END 2023-05-17 09:33 | disposition home or self-care (01) ==
LOC: HO.MDS 09:32
PROVIDERS: Visit Provider Student in an Organized Health Care Education/Training Program
DX: M32.9 Systemic lupus erythematosus, unspecified (principal)
CPT/HCPCS: 96365; J0490

== ENCOUNTER 2023-05-25 13:13 | Outpatient (AMB) | payer BC, SELFPAY ==
[2023-05-25 13:21] VITALS: PULSE 76; O2SAT 97; BMI 29.7
--- NOTE | 2023-05-25 13:21 | A.OFFVIS_ITS ---
Intake Vital Signs 05/25/23 13:21 Height 5 ft 4 in Weight 173 lb BMI 29.7 Pulse 76 Pulse Source Pulse Oximeter Pulse Oximetry (%) 97 Oxygen Delivery Method Room Air Intake Visit Reasons: Chronic obstructive pulmonary disease Experience Designer Required: No Allergies No Known Allergies Allergy (Verified 05/25/23 13:22) HPI HPI Comments History of Present Illness Details The patient is a 63 year woman with a known history of a mixed connective tissue disorder being followed closely by Rheumatology. She had been on methotrexate for a long time however, there was some liver issues and therefore now be switching over to a new agent, Benlysta. She has also been on the hydrochloroquine which she tolerates well. She notices that time she has some episodes of chest tightness. Substernal pressure. This is intermittent. Sometimes aggravated by cold air sometimes by exercise. She was unsure if it was hard or her lungs. She did undergo a CT scan of the chest some where it could Jenkins. I will request the report. In addition to that she underwent an echocardiogram which is reassuring. The patient also had pulmonary function studies. The PFTs were personally by me demonstrating what appears to be a partially reversible obstruction. It also significant airway disease this is suspicious of uncontrolled asthma or in her case for likely bronchiolitis related to her underlying connective tissue disease. In any case it will be still treated similarly so therefore will start her on respiratory therapy. If the patient does not respond to the therapy then we can consider additional testing at that point. I am going to prescribe her Symbicort. I did recommend she start Symbicort 1 puff twice a day as needed. She can always increase it to 2 puffs if she needs additional medication. 05/25/2023 the patient is here for a pulm onary follow-up visit. Overall the priya peres has been doing well. She did start the Arnuity inhaler and she has been getting significant improvement. Initially want her to be on Symbicort but she could not get it approved. She noticed significant improvement. She has not had to use her rescue inhaler in the chest pressure sensation have significantly improved. We did again review her PFTs demonstrating the reversible obstruction. 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 The fact that his better is reassuring. I have yet to get the CT scan of the chest that she had a [facility]. Want to make sure she does not have any evidence of any interstitial lung disease mentioned. The patient should either have a repeat CT scan if she has changes on the CT scan or potentially get an x-ray to make sure that we have a baseline. In the meantime she should continue with exercise capacity. She is off the methotrexate at this time and is currently tolerating the Benlysta which is excellent. [facility] Medical History Transaminitis Palpitations Ovarian cyst Hearing loss Surgical History Hx of knee surgery Hx of tonsillectomy Family History Maternal Grandmother Raynaud disease Osteoarthritis Sister Rheumatoid arthritis Mother Colon cancer Father Congestive heart failure Social History Alcohol intake: current Alcohol intake frequency: other Patient Tobacco Use Status: Current someday Tobacco user e-Cigarette/Vaping Use: Never Used Review of Systems Const Denies fever(s) Eyes Reports dry eyes ENT Reports dry mouth Card Denies chest pain and Reports dyspnea on exertion Resp Reports dyspnea on exertion and Denies wheezing GI Reports no additional complaints Reports no additional complaints Musc Reports as per HPI, Reports joint swelling and Reports stiffness Skin/Breast Denies rash [place]/Lymph Denies lymphadenopathy Aller/Immun Denies wheezing Physical Exam Vital Signs: Last Vital Signs Pulse 76 05/25/23 13:21 Pulse Ox 97 05/25/23 13:21 Oxygen Delivery Method Room Air 05/25/23 13:21 BMI result Body Mass Index 29.7 Const General: comfortable HEENT Head: Yes normocephalic Neck Neck: Yes supple Chest Chest palpation & inspection: normal inspection of the chest Resp Effort & Inspection: normal respiratory effort and No prolonged expiratory phase Auscultation: no wheezes and diminished lung sounds Cardio Heart sounds: S1 normal heart sound present and S2 normal heart sound present GI Palpation (GI): Soft to palpation Skin General skin exam: no rashes or lesions noted Extrem General: Yes no clubbing, cyanosis or edema Assessment & Plan Assessment & Plan (1) Shortness of breath on exertion: Code(s): R06.02 - Shortness of breath (2) Obstructive airway disease: Comment: Partially reversible obstruction, Asthma versus follicular bronchiolitis Code(s): J44.9 - Chronic obstructive pulmonary disease, unspecified (3) Mixed connective tissue disease: Comment: dx 2017 (Raynaud's, arthralgias, dry eye under states this, dry mouth, 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
== END 2023-05-25 13:41 | disposition home or self-care (01) ==
PROVIDERS: PCP Family Medicine; Visit Provider Hospitalist
DX: R06.02 Shortness of breath (principal); J44.9 Chronic obstructive pulmonary disease, unspecified; M35.1 Other overlap syndromes
CPT/HCPCS: 99214

== ENCOUNTER → 2023-05-25 13:13 | Outpatient (BNVA) | payer BC, SELFPAY | PROVIDERS: PCP Family Medicine; Visit Provider Hospitalist | DX: Z23 Encounter for immunization (principal) ==

== ENCOUNTER 2023-06-05 11:20 | Outpatient (REF) | payer BC, SELFPAY ==
[2023-06-05 11:33] LABS: MANUAL DIFF FLAG NO
[2023-06-05 12:21] LABS: Basophils Percent Auto 0.8 % (0-2); Eosinophils Percent Auto 0.8 % (0-4); Hematocrit 37.4 % (37.0-47.0); Hemoglobin 12.4 g/dl (12.0-16.0); Imm Gran Abs Auto 0.04 X10*3/uL (0.00-0.03); Imm Gran Pct Auto 0.8 % (0.0-0.4); Lymphocytes Absolute Auto 1.6 X10*3/uL (1.2-4.9); Lymphocytes Percent Auto 31.2 % (20-40); Mean Corpuscular HGB Conc 33.2 g/dl (31.0-35.0); Mean Corpuscular Hemoglobin 31.6 pg (27.0-33.0); Mean Corpuscular Volume 95.4 fL (80.0-98.0); Mean Platelet Volume 10.3 fL (9.4-12.3); Monocytes Absolute Auto 0.5 X10*3/uL (0.1-1.2); Monocytes Percent Auto 9.3 % (2-11); Neutrophils Percent Auto 57.1 % (45-73); Platelet Count 235 X10*3/uL (160-400); Red Blood Count 3.92 X10*6/uL (4.20-5.50); Red Cell Distribution Width 12.8 % (11.0-16.0); White Blood Count 5.2 X10*3/uL (4.8-10.8)
[2023-06-05 12:46] LABS: Appearance Urine Clear; Color Urine Yellow; Glucose Urine UA Negative (Negative); Leukocyte Esterase Urine Negative (Negative); Nitrite Urine Negative (Negative); PH 6.5 (5.0-9.0); Specific Gravity - Urine 1.025 (1.005-1.025); Urine Blood Negative (Negative); Urine Ketones Trace mg/dL (Negative); Urine Protein Negative (Neg-Trace)
[2023-06-05 12:51] LABS: Bacteria Urine None Seen (None Seen); Hyaline Casts Urine 0-2 /LPF (0-2); RBC Urine 0-2 /HPF (0-2); Squamous Epithelial Cell Urine 0-2 /HPF (0-2); WBC Urine 0-5 /HPF (0-5)
[2023-06-05 12:51] LABS: Alanine Aminotransferase 17 U/L (0-31); Alkaline Phosphatase 68 U/L (39-117); Anion Gap 9 (12-20); Aspartate Amino Transferase 25 U/L (5-31); Bilirubin Total 0.4 mg/dL (0.0-1.0); Blood Urea Nitrogen 21 mg/dL (9-16); C Reactive Protein 0.38 mg/dL (< or = 0.50); Calcium 9.4 mg/dL (8.4-10.2); Carbon Dioxide 27 mmol/L (22-29); Chloride 108 mmol/L (96-108); Estimated Glomerular Filt Rate 57; Glucose Random 87 mg/dL (60-115); Potassium 4.5 mmol/L (3.3-5.1); Sodium 139 mmol/L (135-145)
[2023-06-05 13:01] LABS: Erythrocyte Sedimentation Rate 14 MM/HR (0-20)
[2023-06-05 14:05] LABS: Creatinine Urine 151.15 mg/dL; Protein/Creatinine Ratio, Ur 0.06 (<0.2); Total Protein Urine Random 9 mg/dL (<12)
[2023-06-06 11:58] LABS: Complement C3 91 mg/dL (83-193)
[2023-06-08 13:02] LABS: Anti DNA DS Antibody 3 IU/mL
[2023-06-10 00:05] LABS: DNAds, Crithidia Antibody Negative (Negative)
== END 2023-06-05 11:21 | disposition home or self-care (01) ==
LOC: HO.LAB 11:20
PROVIDERS: PCP Family Medicine; Visit Provider Student in an Organized Health Care Education/Training Program
DX: M35.1 Other overlap syndromes (principal)
CPT/HCPCS: 36415; 80053; 81001; 82570; 84156; 85025; 85652; 86140; 86160; 86225; 86255

== ENCOUNTER 2023-06-14 13:59 | Outpatient (AMB) | payer BC, SELFPAY ==
--- NOTE | 2023-06-14 14:07 | MHC.OFFVIS ---
Intake Vital Signs 06/14/23 14:09 Height 5 ft 4 in Weight 175 lb 4.28 oz BMI 30.1 BP 118/64 Blood Pressure Location Rt brachial Position Sitting Pulse 76 Pulse Source Pulse Oximeter Pulse Oximetry (%) 98 Oxygen Delivery Method Room Air Intake Visit Reasons: SLE/MCTD Intake Note: Patient last seen 02/01/23 presents today for follow up and test results. Cooperative Education Coordinator Required: No Accompanied by: Self / Same As Patient Allergies No Known Allergies Allergy (Verified 06/14/23 14:11) Medication List - Last Reconciled 06/14/23 by Jackelin Fontenot MD albuterol sulfate 90 mcg/actuation 2 inhalations inhalation Q6H PRN 30 days albuterol-budesonide 90-80 mcg/actuation (Airsupra) 2 inhalations inhalation BID PRN 30 days belimumab (Benlysta) intravenously every 4 weeks; x3 doses then 10 mg/kg every 4 weeks budesonide 180 mcg/actuation (Pulmicort Flexhaler) 1 inh inhalation BID 30 days budesonide-formoterol 160-4.5 mcg/actuation (Symbicort) 2 puffs inhalation BID 30 days cholecalciferol (vitamin D3) 25 mcg PO DAILY cyclosporine 0.05% drps ophthalmic (eye) fluticasone furoate 100 mcg/actuation (Arnuity Ellipta) 1 inh inhalation DAILY gabapentin 800 mg (2 x 400 mg) PO BEDTIME hydroxychloroquine 200 mg PO BID trazodone 50 mg PO BEDTIME PRN HPI HPI Comments History of Present Illness Details 63-year-old female with an overlap syndrome (MCTD/Sjogren's/ SLE) presents for follow-up. She completed the Benlysta infusions loading dose. Infusions were uneventful except for some fatigue the day after She states that she feels better overall. Much less brain fog. No rashes. No joint pain. She has noticed that her voice is hoarse for the last few months. She denies any cough or shortness of breath. Initial history: This is a 62-year-old female who was referred for evaluation of mixed connective tissue disease. Her previous brand advocate left the practice. Patient stated that she has had Raynaud's since her 20s and 30s. In 2017 she started having progressively worsening arthralgias. She was diagnosed with mixed connective tissue disease. She was started on hydroxychloroquine with some improvement and methotrexate was added around 2019 with good response. She was diagnosed with Sjogren's around 2019 due to dry eyes and dry mouth. She is currently on Restasis eyedrops and uses cevimeline for dry mouth once daily. Patient's symptoms have been fairly well controlled on methotrexate and hydroxychloroquine. She had a COVID infection 2 and half weeks ago with fevers, worsening body aches and, shortness, loss of taste and smell some cough. Her symptoms are improving. Stated that Raynaud symptoms were worse when she had COVID. She took Paxlovid course. Patient also mentions that she had abrupt onset of bilateral hearing loss in her 40s. No cause for her hearing loss was determined. Eventually it was attributed to an autoimmune condition. Patient denies dysphagia. She denies any shortness of breath. At baseline patient is able to climb 24 steps at home without shortness of breath PFSH Medical History Lymphadenopathy Transaminitis Palpitations Ovarian cyst Hearing loss Surgical History Hx of knee surgery Hx of tonsillectomy Family History Maternal Grandmother Raynaud disease Osteoarthritis Sister Rheumatoid arthritis Mother Colon cancer Father Congestive heart failure Social History Alcohol intake: current Alcohol intake frequency: other Patient Tobacco Use Status: Current someday Tobacco user e-Cigarette/Vaping Use: Never Used Female Reproductive History Menstrual Total pregnancies: 3 Full term: 2 Ab spontaneous: 1 Review of Systems Const Denies fatigue and Denies fever(s) ENT Reports hoarseness Resp Reports no additional complaints Musc Denies arthralgias, Denies joint swelling and Denies stiffness Skin/Breast Denies rash Neuro Details: Brain fog improve Endo Denies fatigue Physical Exam Vital Signs: Last Vital Signs Pulse 76 06/14/23 14:09 BP 118/64 06/14/23 14:09 Pulse Ox 98 06/14/23 14:09 Oxygen Delivery Method Room Air 06/14/23 14:09 BMI result Body Mass Index 30.1 Const General: cooperative, healthy appearing and comfortable Nutritional Appearance: overweight Limitations: no limitations HEENT Other: Reduced hearing bilaterally. Uses hearing aids bilaterally Head: Yes normocephalic and Yes atraumatic Mouth: Normal oral and palatal mucosa present and moist mucous membranes Resp Effort & Inspection: normal respiratory effort and able to speak in complete sentences Auscultation: clear to auscultation bilaterally Cardio Rate: regular rate Rhythm: regular rhythm Heart sounds: S1 normal heart sound present and S2 normal heart sound present GI Inspection: No distended Palpation (GI): Soft to palpation and nontender Extrem Other: No active synovitis. Normal nailfold capillaroscopy Results Reviewed Results Reviewed: DEXA 09/2021? 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 DC 01/2023 Benlysta infusions 04/2023 effective Code(s): M32.9 - Systemic lupus erythematosus, unspecified Qualifiers: Systemic lupus erythematosus type: other Systemic lupus erythematosus organ involvement: other Qualified Code(s): M32.19 - Other organ or system involvement in systemic lupus erythematosus Plan: This is a 63-year-old female with SLE returns for follow-up. Patient completed the 3 loading doses for Benlysta. She has been doing quite well overall. Infusions were well tolerated. There are no signs of active SLE on exam. Transaminitis resolved once methotrexate was discontinued Advised patient to lower her hydroxychloroquine into 400 mg x 6 days a week and 200 mg X 1 day a week Patient is concerned with the cost of Benlysta infusions. She has to pay about 800 dollars for every infusion. She will reach her deductible, about 5 months before the end of the year. We discussed alternative options such as leflunomide or azathioprine. I also asked patient to read up on Saphnelo infusions. For now patient will stay with the Benlysta infusions 2D echo and PFT were done to screen for ILD and PAH. 2D echo was unremarkable. PFTs showed no signs suggestive of restrictive lung disease Labs before next visit in 3 months (2) Sjogren syndrome with keratoconjunctivitis: Code(s): M35.01 - Sjogren syndrome with keratoconjunctivitis Plan: Patient currently on cyclosporine eyedrops. Continue to follow with Ophthalmology. Continue Biotene mouthwash. Cevimeline was minimally helpful and caused nocturnal incontinence. (3) Raynaud disease: Code(s): I73.00 - Raynaud's syndrome without gangrene Qualifiers: Raynaud?s-associated gangrene presence: without gangrene Qualified Code(s): I73.00 - Raynaud's syndrome without gangrene Plan: Symptoms are well controlled using conservative measures such as gloves and heated mittens. (4) Long-term use of hydroxychloroquine: Code(s): Z79.899 - Other chcf (current) drug therapy Plan: Patient follows up regularly with Ophthalmology. (5) Shortness of breath on exertion: Code(s): R06.02 - Shortness of breath Plan: Patient complaining of some chest tightness on exertion. PFT showed mild obstructive disease. She was evaluated by extermination inspector and started on inhalers with improvement. CT chest was ordered by Dr. Kelly (6) Hoarseness: Code(s): R49.0 - Dysphonia Plan: Consider ENT evaluation Plan I spent 45 minutes reviewing patient's chart, evaluating patient, ordering diagnostic workup, counseling patient and documenting in the chart Orders: Orders Complete Blood Count Auto Diff 3 Months M32.9 - Systemic lupus erythematosus, unspecified Comprehensive Met. Panel 3 Months M32.9 - Systemic lupus erythematosus, unspecified Complement C4 3 Months M32.9 - Systemic lupus erythematosus, unspecified UA w Microscopic 3 Months M32.9 - Systemic lupus erythematosus, unspecified C Reactive Protein 3 Months M32.9 - Systemic lupus erythematosus, unspecified Erythrocyte Sedimentation Rate 3 Months M32.9 - Systemic lupus erythematosus, unspecified Anti DNA DS Antibody 3 Months M32.9 - Systemic lupus erythematosus, unspecified Complement C3 3 Months M32.9 - Systemic lupus erythematosus, unspecified Protein Creatinine Ratio, Ur 3 Months M32.9 - Systemic lupus erythematosus, unspecified Coding Level of Care Code Est Pt Level 5 (69200) Diagnoses Other systemic lupus erythematosus with other organ involvement M32.19 Systemic lupus erythematosus type: other Systemic lupus erythematosus organ involvement: other Sjogren syndrome with keratoconjunctivitis M35.01 Raynaud's disease without gangrene I73.00 Raynaud?s-associated gangrene presence: without gangrene Long-term use of hydroxychloroquine Z79.899 Shortness of breath on exertion R06.02 Hoarseness R49.0
[2023-06-14 14:09] VITALS: BP 118/64; PULSE 76; O2SAT 98; BMI 30.1
== END 2023-06-14 14:42 | disposition home or self-care (01) ==
PROVIDERS: PCP Family Medicine; Visit Provider Student in an Organized Health Care Education/Training Program
DX: M32.19 Other organ or system involvement in systemic lupus erythematosus (principal); M35.01 Sjogren syndrome with keratoconjunctivitis; I73.00 Raynaud's syndrome without gangrene; Z79.899 Other long term (current) drug therapy; R06.02 Shortness of breath; R49.0 Dysphonia
CPT/HCPCS: 99215

== ENCOUNTER → 2023-06-14 13:59 | Outpatient (BNVA) | payer BC, SELFPAY | PROVIDERS: PCP Family Medicine; Visit Provider Student in an Organized Health Care Education/Training Program ==

== ENCOUNTER 2023-06-21 14:27 | Outpatient (REF) | payer BC, SELFPAY ==
--- NOTE | ~2023-06-21 | US_ITS ---
EXAMINATION: US VENOUS ULTRASOUND WITH DOPPLER LOWER EXTREMITY, BILATERAL CLINICAL INFORMATION: Lower extremity pain, phlebitis COMPARISON: None available. TECHNIQUE: Ultrasound of the deep veins is performed from the hip to the calf with compression sonography and color and pulse Doppler assessment. Spectral analysis with color-flow imaging is performed. FINDINGS: RIGHT: There is normal venous compression and respiratory variation and augmented flow. The visualized common femoral vein, superficial femoral vein, profunda femoral vein, popliteal vein, and the trifurcation region shows no evidence of deep venous thrombosis. There is no significant popliteal fossa cyst. Within the medial distal thigh, there is a dilated subcutaneous varicose vein with internal echogenic thrombus and noncompressibility consistent with superficial thrombophlebitis. LEFT: There is normal venous compression and respiratory variation and augmented flow. The visualized common femoral vein, superficial femoral vein, profunda femoral vein, popliteal vein, and the trifurcation region shows no evidence of deep venous thrombosis. There is no significant popliteal fossa cyst. If the patient's symptoms persist, followup ultrasound in 5 days 7 days might be of value to exclude proximal propagation from a non-visualized calf vein. US/US venous duplex LE BI IMPRESSION: No DVT demonstrated in the bilateral lower extremity. Superficial thrombophlebitis in the right great saphenous vein in the distal thigh
== END 2023-06-21 14:28 | disposition home or self-care (01) ==
LOC: HO.US 14:27
PROVIDERS: PCP Family Medicine; Visit Provider Student in an Organized Health Care Education/Training Program
DX: I80.9 Phlebitis and thrombophlebitis of unspecified site (principal); M79.604 Pain in right leg; M79.605 Pain in left leg
CPT/HCPCS: 93970

== ENCOUNTER 2023-07-14 14:14 | Outpatient (REF) | payer BC, SELFPAY ==
--- NOTE | ~2023-07-14 | CT_ITS ---
EXAMINATION: CT CHEST WITHOUT CONTRAST CLINICAL INFORMATION: Generalized enlarged lymph nodes COMPARISON: 08/02/2019 TECHNIQUE: Multidetector volumetric CT imaging of the chest was done. Axial MIP volume rendering provided. Sagittal and coronal reformatted images were obtained. This CT examination was performed using dose optimization techniques as appropriate, variously including the following: *Automated exposure control *Adjustment of mA and/or kV according to patient size (this includes techniques or standardized protocols for targeted exams where dose is matched to indication/reason for exam; i.e. extremities or head) *Use of iterative reconstruction technique DLP: 128 mGy-cm FINDINGS: LUNGS: No suspicious pulmonary nodule. PLEURA: No pleural effusion. MEDIASTINUM: No cardiomegaly. Aorta and pulmonary artery are normal in caliber. No mediastinal adenopathy. Lack of IV contrast limits evaluation for hilar adenopathy. CORONARY ARTERY CALCIFICATION: No coronary artery calcification appreciated. CHEST WALL/AXILLA: Redemonstration of mildly prominent bilateral axillary lymph nodes, decreased from prior study. UPPER ABDOMEN: Small hiatal hernia. OSSEOUS STRUCTURES: Unremarkable. CT/CT chest wo IV con IMPRESSION: * No suspicious pulmonary nodule. * Redemonstration of mildly prominent bilateral axillary lymph nodes, decreased from prior study. Recommend correlation with mammographic imaging and ultrasound.
== END 2023-07-14 14:15 | disposition home or self-care (01) ==
LOC: HO.CT 14:14
PROVIDERS: PCP Family Medicine; Visit Provider Hospitalist
DX: R59.1 Generalized enlarged lymph nodes (principal); M35.1 Other overlap syndromes; J44.9 Chronic obstructive pulmonary disease, unspecified; R06.02 Shortness of breath
CPT/HCPCS: 71250

== ENCOUNTER 2023-09-11 08:49 | Outpatient (REF) | payer MEDICARE, SELFPAY ==
[2023-09-11 09:03] LABS: MANUAL DIFF FLAG NO
[2023-09-11 09:29] LABS: Eosinophils Absolute Auto 0.1 X10*3/uL (0.0-0.4); Eosinophils Percent Auto 2.2 % (0-4); Hematocrit 39.6 % (37.0-47.0); Hemoglobin 12.9 g/dl (12.0-16.0); Imm Gran Abs Auto 0.01 X10*3/uL (0.00-0.03); Imm Gran Pct Auto 0.2 % (0.0-0.4); Lymphocytes Absolute Auto 1.6 X10*3/uL (1.2-4.9); Lymphocytes Percent Auto 38.4 % (20-40); Mean Corpuscular HGB Conc 32.6 g/dl (31.0-35.0); Mean Corpuscular Hemoglobin 30.6 pg (27.0-33.0); Mean Corpuscular Volume 94.1 fL (80.0-98.0); Mean Platelet Volume 10.1 fL (9.4-12.3); Monocytes Absolute Auto 0.6 X10*3/uL (0.1-1.2); Monocytes Percent Auto 14.4 % (2-11); Neutrophils Absolute Auto 1.8 x10*3/uL (2.0-8.3); Neutrophils Percent Auto 43.8 % (45-73); Platelet Count 236 X10*3/uL (160-400); Red Blood Count 4.21 X10*6/uL (4.20-5.50); Red Cell Distribution Width 13.2 % (11.0-16.0); White Blood Count 4.1 X10*3/uL (4.8-10.8)
[2023-09-11 10:06] LABS: Erythrocyte Sedimentation Rate 11 MM/HR (0-20)
[2023-09-11 10:08] LABS: Alanine Aminotransferase 15 U/L (0-31); Albumin Level 4.2 g/dL (3.5-5.0); Alkaline Phosphatase 59 U/L (39-117); Anion Gap 12 (12-20); Aspartate Amino Transferase 24 U/L (5-31); Bilirubin Total 0.6 mg/dL (0.0-1.0); Blood Urea Nitrogen 15 mg/dL (9-16); C Reactive Protein 0.49 mg/dL (< or = 0.50); Calcium 8.9 mg/dL (8.4-10.2); Carbon Dioxide 28 mmol/L (22-29); Chloride 105 mmol/L (96-108); Estimated Glomerular Filt Rate 53; Glucose Random 85 mg/dL (60-115); Sodium 141 mmol/L (135-145)
[2023-09-11 10:33] LABS: Appearance Urine Clear; Color Urine Yellow; Glucose Urine UA Negative (Negative); Leukocyte Esterase Urine Negative (Negative); Nitrite Urine Negative (Negative); PH 6.5 (5.0-9.0); Specific Gravity - Urine 1.015 (1.005-1.025); Urine Blood Negative (Negative); Urine Ketones Negative (Negative); Urine Protein Negative (Neg-Trace)
[2023-09-11 10:39] LABS: Bacteria Urine None Seen (None Seen); Hyaline Casts Urine 0-2 /LPF (0-2); RBC Urine 0-2 /HPF (0-2); Squamous Epithelial Cell Urine 0-2 /HPF (0-2); WBC Urine 0-5 /HPF (0-5)
[2023-09-11 11:15] LABS: Creatinine Urine 95.16 mg/dL; Total Protein Urine Random < 7 mg/dL (<12)
[2023-09-12 09:52] LABS: Complement C3 95 mg/dL (83-193)
[2023-09-12 21:19] LABS: Anti DNA DS Antibody 2 IU/mL
== END 2023-09-11 08:50 | disposition home or self-care (01) ==
LOC: HO.LAB 08:49
PROVIDERS: PCP Family Medicine; Visit Provider Student in an Organized Health Care Education/Training Program
DX: M32.9 Systemic lupus erythematosus, unspecified (principal)
CPT/HCPCS: 36415; 80053; 81001; 82570; 84156; 85025; 85652; 86140; 86160; 86225

== ENCOUNTER 2023-09-20 13:19 | Outpatient (AMB) | payer MEDICARE, SELFPAY ==
[2023-09-20 13:33] VITALS: BP 112/62; PULSE 76; O2SAT 100; BMI 28.5
--- NOTE | 2023-09-20 13:33 | A.OFFVIS_ITS ---
Vital Signs 09/20/23 13:33 Height 5 ft 4 in Weight 165 lb 12.602 oz BMI 28.5 BP 112/62 Blood Pressure Location Lt brachial Position Sitting Pulse 76 Pulse Source Pulse Oximeter Pulse Oximetry (%) 100 Oxygen Delivery Method Room Air Intake Visit Reasons: SLE/lm Intake Note: Patient last seen on 06/14/23 present today for follow up and test results. Allergies No Known Allergies Allergy (Verified 09/20/23 13:35) Medication List - Last Reconciled 09/20/23 by Jackelin Fontenot MD albuterol sulfate 90 mcg/actuation 2 inhalations inhalation Q6H PRN 30 days albuterol-budesonide 90-80 mcg/actuation (Airsupra) 2 inhalations inhalation BID PRN 30 days belimumab (Benlysta) intravenously every 4 weeks; x3 doses then 10 mg/kg every 4 weeks budesonide 180 mcg/actuation (Pulmicort Flexhaler) 1 inh inhalation BID 30 days budesonide-formoterol 160-4.5 mcg/actuation (Symbicort) 2 puffs inhalation BID 30 days cholecalciferol (vitamin D3) 25 mcg PO DAILY cyclosporine 0.05% drps ophthalmic (eye) fluticasone furoate 100 mcg/actuation (Arnuity Ellipta) 1 inh inhalation DAILY gabapentin 800 mg (2 x 400 mg) PO BEDTIME hydroxychloroquine Take 1 tab twice daily x6 days a week and 1 tab daily X1 day a week trazodone 50 mg PO BEDTIME PRN HPI Comments Details: 63-year-old female with an overlap syndrome (MCTD/Sjogren's/ SLE) presents for follow-up. She remains on Benlysta monthly infusions. On hydroxychloroquine prescribed. She remains on Eliquis 5 mg Twice daily. States that the abnormal achy sensation in her right thigh has resolved She states that she feels better overall. Much less brain fog. No rashes. No joint pain. She has noticed that her voice is hoarse for the last few months. She attributes this to her Sjogren's. She denies any cough or shortness of breath. Initial history: This is a 62-year-old female who was referred for evaluation of mixed connective tissue disease. Her previous systems software engineer left the practice. Patient stated that she has had Raynaud's since her 20s and 30s. In 2017 she started having progressively worsening arthralgias. She was diagnosed with mixed connective tissue disease. She was started on hydroxychloroquine with some improvement and methotrexate was added around 2019 with good response. She was diagnosed with Sjogren's around 2019 due to dry eyes and dry mouth. She is currently on Restasis eyedrops and uses cevimeline for dry mouth once daily. Patient's symptoms have been fairly well controlled on methotrexate and hydroxychloroquine. She had a COVID infection 2 and half weeks ago with fevers, worsening body aches and, shortness, loss of taste and smell some cough. Her symptoms are improving. Stated that Raynaud symptoms were worse when she had COVID. She took Paxlovid course. Patient also mentions that she had abrupt onset of bilateral hearing loss in her 40s. No cause for her hearing loss was determined. Eventually it was attributed to an autoimmune condition. Patient denies dysphagia. She denies any shortness of breath. At baseline patient is able to climb 24 steps at home without shortness of breath [facility] Medical History Lymphadenopathy Transaminitis Palpitations Ovarian cyst Hearing loss Surgical History Hx of knee surgery Hx of tonsillectomy Family History Maternal Grandmother Raynaud disease Osteoarthritis Sister Rheumatoid arthritis Mother Colon cancer Father Congestive heart failure Social History Alcohol intake: current Alcohol intake frequency: other Patient Tobacco Use Status: Current someday Tobacco user e-Cigarette/Vaping Use: Never Used Female Reproductive History Menstrual Total pregnancies: 3 Full term: 2 Ab spontaneous: 1 Review of Systems Const Denies fatigue and Denies fever(s) ENT Reports hoarseness Resp Reports no additional complaints Musc Denies arthralgias, Denies joint swelling and Denies stiffness Skin/Breast Denies rash Endo Denies fatigue Physical Exam Vital Signs: Last Vital Signs Pulse 76 09/20/23 13:33 BP 112/62 09/20/23 13:33 Pulse Ox 100 09/20/23 13:33 Oxygen Delivery Method Room Air 09/20/23 13:33 BMI result Body Mass Index 28.5 Const General: cooperative, healthy appearing and comfortable Nutritional Appearance: overweight Limitations: no limitations HEENT Other: Reduced hearing bilaterally. Uses hearing aids bilaterally Head: Yes normocephalic and Yes atraumatic Mouth: Normal oral and palatal mucosa present and moist mucous membranes Resp Effort & Inspection: normal respiratory effort and able to speak in complete sentences Auscultation: clear to auscultation bilaterally Cardio Rate: regular rate Rhythm: regular rhythm Heart sounds: S1 normal heart sound present and S2 normal heart sound present GI Inspection: No distended Palpation (GI): Soft to palpation and nontender Extrem Other: No active synovitis. Normal nailfold capillaroscopy Varicose veins both legs Results Reviewed Results Reviewed: DEXA 09/2021? 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 DC 01/2023 Benlysta infusions 04/2023 effective Code(s): M32.9 - Systemic lupus erythematosus, unspecified Category: Medical Qualifiers: Systemic lupus erythematosus type: other Systemic lupus erythematosus organ involvement: other Qualified Code(s): M32.19 - Other organ or system involvement in systemic lupus erythematosus Plan: This is a 63-year-old female with SLE returns for follow-up. She is on Benlysta monthly and hydroxychloroquine. She has been doing quite well overall. Infusions arewell tolerated. There are no signs of active SLE on exam. hydroxychloroquine into 400 mg x 6 days a week and 200 mg X 1 day a week Patient is concerned with the cost of Benlysta infusions. She has to pay about 800 dollars for every infusion. She will reach her deductible, about 5 months before the end of the year. We discussed alternative options such as leflunomide or azathioprine. She states that she will look into other alternative insurance plans. For now patient will stay with the Benlysta infusions 2D echo and PFT were done to screen for ILD and PAH. 2D echo was unremarkable. PFTs showed no signs suggestive of restrictive lung disease Labs before next visit in 4 months (2) Sjogren syndrome with keratoconjunctivitis: Code(s): M35.01 - Sjogren syndrome with keratoconjunctivitis Category: Medical Plan: Patient currently on cyclosporine eyedrops. Continue to follow with Ophthalmology. Continue Biotene mouthwash. Cevimeline was minimally helpful and caused nocturnal incontinence. (3) Raynaud disease: Code(s): I73.00 - Raynaud's syndrome without gangrene Category: Medical Qualifiers: Raynaud?s-associated gangrene presence: without gangrene Qualified Code(s): I73.00 - Raynaud's syndrome without gangrene Plan: Symptoms are well controlled using conservative measures such as gloves and heated mittens. (4) Long-term use of hydroxychloroquine: Code(s): Z79.899 - Other care home (current) drug therapy Category: Medical Plan: Patient follows up regularly with Ophthalmology. (5) Shortness of breath on exertion: Code(s): R06.02 - Shortness of breath Category: Medical Plan: Patient was complaining of some chest tightness on exertion. PFT showed mild obstructive disease. She was evaluated by creative intern and started on inhalers with improvement. CT chest was ordered by Dr. Kelly which did not show signs of ILD, it showed improving axillary lymphadenopathy (6) Superficial thrombophlebitis of right leg: Code(s): I80.01 - Phlebitis and thrombophlebitis of superficial vessels of right lower extremity Category: Medical Plan: Right great saphenous vein official thrombophlebitis 05/2023. Patient has been on Eliquis for the last 3 months. Advised patient to stop Eliquis now. Will check a repeat venous duplex to ensure resolution Plan I spent 45 minutes reviewing patient's chart, evaluating patient, ordering diagnostic workup, counseling patient and documenting in the chart Orders: Orders Anti DNA DS Antibody 4 Months M32.9 - Systemic lupus erythematosus, unspecified Complement C4 4 Months M32.9 - Systemic lupus erythematosus, unspecified C Reactive Protein 4 Months M32.9 - Systemic lupus erythematosus, unspecified Protein Creatinine Ratio, Ur 4 Months M32.9 - Systemic lupus erythematosus, unspecified UA w Microscopic 4 Months M32.9 - Systemic lupus erythematosus, unspecified US venous duplex LE BI Today I80.01 - Phlebitis and thrombophlebitis of superficial vessels of right lower extremity Complement C3 4 Months M32.9 - Systemic lupus erythematosus, unspecified DNA Double Stranded-Crithidia 4 Months M32.9 - Systemic lupus erythematosus, unspecified Erythrocyte Sedimentation Rate 4 Months M32.9 - Systemic lupus erythematosus, unspecified Complete Blood Count Auto Diff 4 Months M32.9 - Systemic lupus erythematosus, unspecified Comprehensive Met. Panel 4 Months M32.9 - Systemic lupus erythematosus, unspecified Coding Level of Care Code Est Pt Level 5 (95275) Complex EM visit Add On G2211 Diagnoses Other systemic lupus erythematosus with other organ involvement M32.19 Systemic lupus erythematosus type: other Systemic lupus erythematosus organ involvement: other Sjogren syndrome with keratoconjunctivitis M35.01 Raynaud's disease without gangrene I73.00 Raynaud?s-associated gangrene presence: without gangrene Long-term use of hydroxychloroquine Z79.899 Shortness of breath on exertion R06.02 Superficial thrombophlebitis of right leg I80.01
== END 2023-09-20 14:08 | disposition home or self-care (01) ==
PROVIDERS: PCP Family Medicine; Visit Provider Student in an Organized Health Care Education/Training Program
DX: M32.19 Other organ or system involvement in systemic lupus erythematosus (principal); M35.01 Sjogren syndrome with keratoconjunctivitis; I73.00 Raynaud's syndrome without gangrene; Z79.899 Other long term (current) drug therapy; R06.02 Shortness of breath; I80.01 Phlebitis and thrombophlebitis of superficial vessels of right lower extremity
CPT/HCPCS: 99215; G2211

== ENCOUNTER → 2023-09-20 13:19 | Outpatient (BNVA) | payer MEDICARE, SELFPAY | PROVIDERS: PCP Family Medicine; Visit Provider Student in an Organized Health Care Education/Training Program | DX: M32.19 Other organ or system involvement in systemic lupus erythematosus (principal); M35.01 Sjogren syndrome with keratoconjunctivitis; R06.02 Shortness of breath; I73.00 Raynaud's syndrome without gangrene; I80.01 Phlebitis and thrombophlebitis of superficial vessels of right lower extremity; Z79.01 Long term (current) use of anticoagulants; Z79.899 Other long term (current) drug therapy | CPT/HCPCS: 99212 ==

== ENCOUNTER 2023-09-22 07:59 | Outpatient (REF) | payer MEDICARE, SELFPAY ==
--- NOTE | ~2023-09-22 | US_ITS ---
EXAMINATION: US VENOUS ULTRASOUND WITH DOPPLER LOWER EXTREMITY, BILATERAL CLINICAL INFORMATION: Superficial thrombophlebitis. COMPARISON: 06/21/2023 TECHNIQUE: Ultrasound of the deep veins is performed from the hip to the calf with compression sonography and color and pulse Doppler assessment. Spectral analysis with color-flow imaging is performed. FINDINGS: RIGHT: There is normal venous compression and respiratory variation and augmented flow. The visualized common femoral vein, superficial femoral vein, profunda femoral vein, popliteal vein, and the trifurcation region shows no evidence of deep venous thrombosis. LEFT: There is normal venous compression and respiratory variation and augmented flow. The visualized common femoral vein, superficial femoral vein, profunda femoral vein, popliteal vein, and the trifurcation region shows no evidence of deep venous thrombosis. If the patient's symptoms persist, followup ultrasound in 5 days 7 days might be of value to exclude proximal propagation from a non-visualized calf vein. US/US venous duplex LE BI IMPRESSION: No DVT demonstrated in the bilateral lower extremities.
== END 2023-09-22 08:00 | disposition home or self-care (01) ==
LOC: HO.US 07:59
PROVIDERS: PCP Family Medicine; Visit Provider Student in an Organized Health Care Education/Training Program
DX: I80.01 Phlebitis and thrombophlebitis of superficial vessels of right lower extremity (principal)
CPT/HCPCS: 93970

== ENCOUNTER 2023-12-04 14:29 | Outpatient (AMB) | payer MEDICARE, SELFPAY ==
--- NOTE | 2023-12-04 14:35 | A.OFFVIS_ITS ---
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 She had been on methotrexate for a long time however, there was some liver issues and therefore now be switching over to a new agent, Benlysta. She has also been on the hydrochloroquine which she tolerates well. She notices that time she has some episodes of chest tightness. Substernal pressure. This is intermittent. Sometimes aggravated by cold air sometimes by exercise. She was unsure if it was hard or her lungs. She did undergo a CT scan of the chest some where it could Freddy. I will request the report. In addition to that she underwent an echocardiogram which is reassuring. The patient also had pulmonary function studies. The PFTs were personally by me demonstrating what appears to be a partially reversible obstruction. It also significant airway disease this is suspicious of uncontrolled asthma or in her case for likely bronchiolitis related to her underlying connective tissue disease. In any case it will be still treated similarly so therefore will start her on respiratory therapy. If the patient does not respond to the therapy then we can consider additional testing at that point. I am going to prescribe her Symbicort. I did recommend she start Symbicort 1 puff twice a day as needed. She can always increase it to 2 puffs if she needs additional medication. 05/25/2023 the patient is here for a pulmonary follow-up visit. Overall the patient has been doing well. She did start the Arnuity inhaler and she has been getting significant improvement. Initially want her to be on Symbicort but she could not get it approved. She noticed significant improvement. She has not had to use her rescue inhaler in the chest pressure sensation have significantly improved. We did again review her PFTs demonstrating the reversible obstruction. 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 The fact that his better is reassuring. I have yet to get the CT scan of the chest that she had a Deep [place]. Want to make sure she does not have any evidence of any interstitial lung disease mentioned. The patient should either have a repeat CT scan if she has changes on the CT scan or potentially get an x-ray to make sure that we have a baseline. In the meantime she should continue with exercise capacity. She is off the methotrexate at this time and is currently tolerating the Benlysta which is excellent. 12/04/2023 the patient is here for a pulmonary follow-up visit. The patient overall has been doing better. The Anoro inhaler initially started has not to her respiratory symptoms significantly. She is pretty happy with the improvement in her respiratory symptoms. However, she has been noticing that she is getting more hoarse. She has been losing her voice. She did have an ENT evaluation and did have laryngoscopy in did not find any lesions. Explained to her that the powder inhaler can result in the hoarseness. She does gargle well after using it but still difficult to remove all the sediment from the medication. Therefore, the patient has failed the powdered inhaler and will therefore switch over to a HFA formulation. I did send asthma next to the pharmacy. Will have to do prior approval. I also did provide the patient spacer in order to minimize upper airway irritation and hoarseness. The patient also had a CT scan of the chest in 07/17/2023 which I personally reviewed. She has no evidence of any parenchymal lung disease. Her airways appeared to be stable and I do not appreciate any mosaic pattern. Although she does have some small pulmonary nodules noted subcentimeter in size in the right hemithorax. These nodules were not documented in the final report but there are present. Therefore, will discuss repeating the CT scan sometime in the fall 2024. [facility] Medical History (Updated 12/04/23 @ 14:51 by Mike Kelly MD) Pulmonary nodule Lymphadenopathy Transaminitis Palpitations Ovarian cyst Hearing loss Surgical History Hx of knee surgery Hx of tonsillectomy Family History Maternal Grandmother Raynaud disease Osteoarthritis Sister Rheumatoid arthritis Mother Colon cancer Father Congestive heart failure Social History Alcohol intake: current Alcohol intake frequency: other Patient Tobacco Use Status: Current someday Tobacco user e-Cigarette/Vaping Use: Never Used Review of Systems Const Denies fever(s) Eyes Reports dry eyes ENT Reports dry mouth and Reports hoarseness Card Denies chest pain and Reports dyspnea on exertion Resp Reports dyspnea on exertion and Denies wheezing GI Reports no additional complaints Reports no additional complaints Musc Reports as per HPI, Reports joint swelling and Reports stiffness Skin/Breast Denies rash [place]/Lymph Denies lymphadenopathy Aller/Immun Denies wheezing Physical Exam Vital Signs: Last Vital Signs Pulse 78 12/04/23 14:37 BP 118/60 12/04/23 14:37 Pulse Ox 97 12/04/23 14:37 Oxygen Delivery Method Room Air 12/04/23 14:37 BMI result Body Mass Index 26.5 Const General: comfortable HEENT Head: Yes normocephalic Neck Neck: Yes supple Chest Chest palpation & inspection: normal inspection of the chest Resp Effort & Inspection: normal respiratory effort and No prolonged expiratory phase Auscultation: no wheezes and diminished lung sounds Cardio Heart sounds: S1 normal heart sound present and S2 normal heart sound present GI Palpation (GI): Soft to palpation Skin General skin exam: no rashes or lesions noted Extrem General: Yes no clubbing, cyanosis or edema Assessment & Plan Assessment & Plan (1) Shortness of breath on exertion: Code(s): R06.02 - Shortness of breath Category: Medical (2) Obstructive airway disease: Comment: Partially reversible obstruction, Asthma versus follicular bronchiolitis Code(s): J44.9 - Chronic obstructive pulmonary disease, unspecified Category: Medical (3) Mixed connective tissue disease: Comment: dx 2017 (Raynaud's, arthralgias, dry eye under states this, dry mouth, fatigue, +++ 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 Does not tolerate powdered inhalers. Will request Asmanex HFA with spacer DEISI as needed Exercise as tolerated Ct chest in 1 yr F/U 6 months Medications: New mometasone 200 mcg/actuation (Asmanex HFA) 2 puffs inhalation BID 13 grams 6RF 30 days Coding Level of Care Code Est Pt Level 4 (42787) Diagnoses Shortness of breath on exertion R06.02 Obstructive airway disease J44.9 Mixed connective tissue disease M35.1 Pulmonary nodule R91.1 Hoarseness R49.0 Time Spent (min) 17
[2023-12-04 14:37] VITALS: BP 118/60; PULSE 78; O2SAT 97; BMI 26.5
== END 2023-12-04 14:59 | disposition home or self-care (01) ==
PROVIDERS: PCP Family Medicine; Visit Provider Hospitalist
DX: R06.02 Shortness of breath (principal); J44.9 Chronic obstructive pulmonary disease, unspecified; M35.1 Other overlap syndromes; R91.1 Solitary pulmonary nodule; R49.0 Dysphonia
CPT/HCPCS: 99214

== ENCOUNTER → 2023-12-04 14:29 | Outpatient (BNVA) | payer MEDICARE, SELFPAY | PROVIDERS: PCP Family Medicine; Visit Provider Hospitalist | DX: J44.9 Chronic obstructive pulmonary disease, unspecified (principal); M35.1 Other overlap syndromes; R06.02 Shortness of breath; R49.0 Dysphonia; R91.1 Solitary pulmonary nodule; Z79.899 Other long term (current) drug therapy | CPT/HCPCS: 99212 ==

== ENCOUNTER 2024-01-15 11:19 | Outpatient (REF) | payer MEDICARE, SELFPAY ==
[2024-01-15 11:53] LABS: MANUAL DIFF FLAG NO
[2024-01-15 12:26] LABS: Basophils Percent Auto 0.7 % (0-2); Eosinophils Absolute Auto 0.1 X10*3/uL (0.0-0.4); Eosinophils Percent Auto 1.7 % (0-4); Hematocrit 35.1 % (37.0-47.0); Hemoglobin 11.5 g/dl (12.0-16.0); Imm Gran Abs Auto 0.01 X10*3/uL (0.00-0.03); Imm Gran Pct Auto 0.2 % (0.0-0.4); Lymphocytes Absolute Auto 1.7 X10*3/uL (1.2-4.9); Lymphocytes Percent Auto 41.1 % (20-40); Mean Corpuscular HGB Conc 32.8 g/dl (31.0-35.0); Mean Corpuscular Hemoglobin 31.3 pg (27.0-33.0); Mean Corpuscular Volume 95.4 fL (80.0-98.0); Mean Platelet Volume 10.7 fL (9.4-12.3); Monocytes Absolute Auto 0.4 X10*3/uL (0.1-1.2); Monocytes Percent Auto 10.3 % (2-11); Neutrophils Absolute Auto 1.9 x10*3/uL (2.0-8.3); Platelet Count 226 X10*3/uL (160-400); Red Blood Count 3.68 X10*6/uL (4.20-5.50); Red Cell Distribution Width 13.8 % (11.0-16.0); White Blood Count 4.1 X10*3/uL (4.8-10.8)
[2024-01-15 12:33] LABS: Appearance Urine Cloudy; Color Urine Yellow; Glucose Urine UA Negative (Negative); Leukocyte Esterase Urine Negative (Negative); Nitrite Urine Negative (Negative); Specific Gravity - Urine 1.025 (1.005-1.025); UMIC TRIGGER UA YES; Urine Blood Negative (Negative); Urine Ketones Trace mg/dL (Negative); Urine Protein 30 (1+) mg/dL (Neg-Trace)
[2024-01-15 12:35] LABS: Bacteria Urine None Seen (None Seen); Hyaline Casts Urine 0-2 /LPF (0-2); RBC Urine 0-2 /HPF (0-2); Squamous Epithelial Cell Urine 0-2 /HPF (0-2); WBC Urine 0-5 /HPF (0-5)
[2024-01-15 12:44] LABS: Creatinine Urine 175.03 mg/dL; Total Protein Urine Random < 7 mg/dL (<12)
[2024-01-15 12:51] LABS: Alanine Aminotransferase 17 U/L (0-31); Albumin Level 4.1 g/dL (3.5-5.0); Alkaline Phosphatase 48 U/L (39-117); Anion Gap 9 (12-20); Aspartate Amino Transferase 28 U/L (5-31); Bilirubin Total 0.4 mg/dL (0.0-1.0); Blood Urea Nitrogen 17 mg/dL (9-16); C Reactive Protein 0.23 mg/dL (< or = 0.50); Calcium 9.3 mg/dL (8.4-10.2); Carbon Dioxide 31 mmol/L (22-29); Chloride 106 mmol/L (96-108); Estimated Glomerular Filt Rate 46; Glucose Random 92 mg/dL (60-115); Potassium 4.6 mmol/L (3.3-5.1); Sodium 141 mmol/L (135-145); Total Protein 6.6 g/dL (6.5-8.0)
[2024-01-15 13:04] LABS: Erythrocyte Sedimentation Rate 10 MM/HR (0-20)
[2024-01-16 15:03] LABS: Anti DNA DS Antibody 2 IU/mL
[2024-01-16 15:28] LABS: Complement C3 87 mg/dL (83-193)
[2024-01-19 14:24] LABS: DNAds, Crithidia Antibody Negative (Negative)
== END 2024-01-15 11:20 | disposition home or self-care (01) ==
LOC: HO.LAB 11:19
PROVIDERS: PCP Family Medicine; Visit Provider Student in an Organized Health Care Education/Training Program
DX: M32.9 Systemic lupus erythematosus, unspecified (principal)
CPT/HCPCS: 36415; 80053; 81001; 82570; 84156; 85025; 85652; 86140; 86160; 86225; 86255

== ENCOUNTER 2024-01-29 07:57 | Outpatient (AMB) | payer MEDICARE, SELFPAY ==
--- NOTE | 2024-01-29 08:01 | MHC.OFFVIS ---
Vital Signs 01/29/24 08:05 Height 5 ft 4 in Weight 145 lb 8.081 oz BMI 25.0 BP 102/60 Blood Pressure Location Lt brachial Position Sitting Pulse 72 Pulse Source Pulse Oximeter Pulse Oximetry (%) 98 Oxygen Delivery Method Room Air Intake Visit Reasons: SLE/CM Intake Note: Patient presents for SLE. Allergies No Known Allergies Allergy (Verified 01/29/24 08:03) Medication List - Last Reconciled 01/29/24 by Jackelin Fontenot MD albuterol sulfate 90 mcg/actuation 2 inhalations inhalation Q6H PRN 30 days belimumab (Benlysta) intravenously every 4 weeks; x3 doses then 10 mg/kg every 4 weeks cholecalciferol (vitamin D3) 25 mcg PO DAILY folic acid 1 mg PO DAILY gabapentin 600 mg PO BEDTIME hydroxychloroquine take 1 tab twice daily x6 days a week and 1 tab once daily X 1 day a week trazodone 50 mg PO BEDTIME PRN HPI Comments Details: 63-year-old female with an overlap syndrome (MCTD/Sjogren's/ SLE) presents for follow-up. She remains on Benlysta monthly infusions. On hydroxychloroquine as prescribed. She states that she is doing well overall. No significant fatigue, rashes, brain fog, joint pains. She states that she has always had borderline low blood pressure. Recently she has noticed it more. Usually in the morning, she gets lightheaded and when she checks her blood pressure, her systolic is in the 80s. She takes gabapentin 800 mg nightly. She states that it helps with nerve pain and helps her sleep. Initial history: This is a 62-year-old female who was referred for evaluation of mixed connective tissue disease. 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 Patient stated that she has had Raynaud's since her 20s and 30s. In 2017 she started having progressively worsening arthralgias. She was diagnosed with mixed connective tissue disease. She was started on hydroxychloroquine with some improvement and methotrexate was added around 2019 with good response. She was diagnosed with Sjogren's around 2019 due to dry eyes and dry mouth. She is currently on Restasis eyedrops and uses cevimeline for dry mouth once daily. Patient's symptoms have been fairly well controlled on methotrexate and hydroxychloroquine. She had a COVID infection 2 and half weeks ago with fevers, worsening body aches and, shortness, loss of taste and smell some cough. Her symptoms are improving. Stated that Raynaud symptoms were worse when she had COVID. She took Paxlovid course. Patient also mentions that she had abrupt onset of bilateral hearing loss in her 40s. No cause for her hearing loss was determined. Eventually it was attributed to an autoimmune condition. Patient denies dysphagia. She denies any shortness of breath. At baseline patient is able to climb 24 steps at home without shortness of breath [facility] Medical History Pulmonary nodule Lymphadenopathy Transaminitis Palpitations Ovarian cyst Hearing loss Surgical History Hx of knee surgery Hx of tonsillectomy Family History Maternal Grandmother Raynaud disease Osteoarthritis Sister Rheumatoid arthritis Mother Colon cancer Father Congestive heart failure Social History Alcohol intake: current Alcohol intake frequency: other Patient Tobacco Use Status: Current someday Tobacco user e-Cigarette/Vaping Use: Never Used Female Reproductive History Menstrual Total pregnancies: 3 Full term: 2 Ab spontaneous: 1 Review of Systems Const Denies fatigue and Denies fever(s) Resp Reports no additional complaints Musc Denies arthralgias, Denies joint swelling and Denies stiffness Skin/Breast Denies rash Endo Denies fatigue Physical Exam Vital Signs: Last Vital Signs Pulse 72 01/29/24 08:05 BP 102/60 01/29/24 08:05 Pulse Ox 98 01/29/24 08:05 Oxygen Delivery Method Room Air 01/29/24 08:05 BMI result Body Mass Index 25.0 Const General: cooperative, healthy appearing and comfortable Nutritional Appearance: overweight Limitations: no limitations HEENT Other: Reduced hearing bilaterally. Uses hearing aids bilaterally Head: Yes normocephalic and Yes atraumatic Mouth: Normal oral and palatal mucosa present and moist mucous membranes Resp Effort & Inspection: normal respiratory effort and able to speak in complete sentences Auscultation: clear to auscultation bilaterally Cardio Rate: regular rate Rhythm: regular rhythm Heart sounds: S1 normal heart sound present and S2 normal heart sound present GI Inspection: No distended Palpation (GI): Soft to palpation and nontender Extrem Other: No active synovitis. 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 DC 01/2023 Benlysta infusions 04/2023 effective Code(s): M32.9 - Systemic lupus erythematosus, unspecified Category: Medical Qualifiers: Systemic lupus erythematosus type: other Systemic lupus erythematosus organ involvement: other Qualified Code(s): M32.19 - Other organ or system involvement in systemic lupus erythematosus Plan: This is a 63-year-old female with SLE returns for follow-up. She is on Benlysta monthly and hydroxychloroquine. She has been doing quite well overall. Infusions arewell tolerated. There are no signs of active SLE on exam. On hydroxychloroquine 400 mg x 6 days a week and 200 mg X 1 day a week Patient states that she is thinking about switching to Medicare plus a prescription plan. At that time she would like to switch to Benlysta subcu injections. Advised patient to let us know when she changes her insurance so we can start the prior authorization for Benlysta subcu injections Continue hydroxychloroquine as prescribed 2D echo and PFT were done in 2022 to screen for ILD and PAH. 2D echo was unremarkable. PFTs showed no signs suggestive of restrictive lung disease. Showed signs suggestive of obstructive lung disease which is managed by Dr. [facility] before next visit in 3 months (2) Sjogren syndrome with keratoconjunctivitis: Code(s): M35.01 - Sjogren syndrome with keratoconjunctivitis Category: Medical Plan: Patient currently on cyclosporine eyedrops. Continue to follow with Ophthalmology. Continue Biotene mouthwash. Cevimeline was minimally helpful and caused nocturnal incontinence. (3) Raynaud disease: Code(s): I73.00 - Raynaud's syndrome without gangrene Category: Medical Qualifiers: Raynaud?s-associated gangrene presence: without gangrene Qualified Code(s): I73.00 - Raynaud's syndrome without gangrene Plan: Symptoms are well controlled using conservative measures such as gloves and heated mittens. (4) Long-term use of hydroxychloroquine: Comment: Eye exam 10/2023 okay Code(s): Z79.899 - Other correction (current) drug therapy Category: Medical Plan: Patient follows up regularly with Ophthalmology. (5) Superficial thrombophlebitis of right leg: Code(s): I80.01 - Phlebitis and thrombophlebitis of superficial vessels of right lower extremity Category: Medical Plan: Right great saphenous vein official thrombophlebitis 05/2023. I prescribed Eliquis for 3 months. Repeat venous duplex was negative. Patient is now using compression stockings + lupus anticoagulant (6) Lightheadedness: Code(s): R42 - Dizziness and giddiness Category: Medical Plan: Will try reducing gabapentin to 600 mg nightly and reassess (7) Immunization counseling: Code(s): Z71.85 - Encounter for immunization safety counseling Category: Medical Plan: Patient received a new COVID booster this season and will be going back to get the flu vaccine. She received Shingrix vaccine in the past Plan I spent 45 minutes reviewing patient's chart, evaluating patient, ordering diagnostic workup, counseling patient and documenting in the chart Orders: Orders Anti DNA DS Antibody Today M32.9 - Systemic lupus erythematosus, unspecified Complement C3 Today M32.9 - Systemic lupus erythematosus, unspecified C Reactive Protein Today M32.9 - Systemic lupus erythematosus, unspecified Erythrocyte Sedimentation Rate Today M32.9 - Systemic lupus erythematosus, unspecified DNA Double Stranded-Crithidia Today M32.9 - Systemic lupus erythematosus, unspecified Protein Creatinine Ratio, Ur Today M32.9 - Systemic lupus erythematosus, unspecified Sjogren's Antibodies Today M32.9 - Systemic lupus erythematosus, unspecified Comprehensive Met. Panel Today M32.9 - Systemic lupus erythematosus, unspecified Complement C4 Today M32.9 - Systemic lupus erythematosus, unspecified UA w Microscopic Today M32.9 - Systemic lupus erythematosus, unspecified Complete Blood Count Auto Diff Today M32.9 - Systemic lupus erythematosus, unspecified Hepatitis A,B,C Profile Today Z11.59 - Encounter for screening for other viral diseases T Spot TB Today Z11.7 - Encounter for testing for latent tuberculosis infection Medications: New gabapentin 600 mg PO BEDTIME 30 tabs 0RF Discontinued gabapentin Discontinued Reason: Doctor's Order 800 mg (2 x 400 mg) PO BEDTIME 60 caps 2RF Coding Level of Care Code Est Pt Level 5 (29577) Complex EM visit Add On G2211 Diagnoses Other systemic lupus erythematosus with other organ involvement M32.19 Systemic lupus erythematosus type: other Systemic lupus erythematosus organ involvement: other Sjogren syndrome with keratoconjunctivitis M35.01 Raynaud's disease without gangrene I73.00 Raynaud?s-associated gangrene presence: without gangrene Long-term use of hydroxychloroquine Z79.899 Superficial thrombophlebitis of right leg I80.01 Lightheadedness R42 Immunization counseling Z71.85
[2024-01-29 08:05] VITALS: BP 102/60; PULSE 72; O2SAT 98; BMI 25.0
== END 2024-01-29 08:30 | disposition home or self-care (01) ==
PROVIDERS: PCP Family Medicine; Visit Provider Student in an Organized Health Care Education/Training Program
DX: M32.19 Other organ or system involvement in systemic lupus erythematosus (principal); M35.01 Sjogren syndrome with keratoconjunctivitis; I73.00 Raynaud's syndrome without gangrene; Z79.899 Other long term (current) drug therapy; I80.01 Phlebitis and thrombophlebitis of superficial vessels of right lower extremity; R42 Dizziness and giddiness; Z71.85 Encounter for immunization safety counseling
CPT/HCPCS: 99215; G2211

== ENCOUNTER → 2024-01-29 07:57 | Outpatient (BNVA) | payer MEDICARE, SELFPAY | PROVIDERS: PCP Family Medicine; Visit Provider Student in an Organized Health Care Education/Training Program | DX: M32.19 Other organ or system involvement in systemic lupus erythematosus (principal); M35.01 Sjogren syndrome with keratoconjunctivitis; I73.00 Raynaud's syndrome without gangrene; I80.01 Phlebitis and thrombophlebitis of superficial vessels of right lower extremity; R42 Dizziness and giddiness; Z79.899 Other long term (current) drug therapy; Z79.631 Long term (current) use of antimetabolite agent; Z71.85 Encounter for immunization safety counseling | CPT/HCPCS: 99212 ==

== ENCOUNTER 2024-02-12 11:30 | Outpatient (RCR) | payer BC, SELFPAY ==
[2023-05-31 09:31] VITALS: BP 121/62; PULSE 69; RESP 16; TEMP 36.2; O2SAT 100
[2023-05-31] MEDS: diphenhydrAMINE HCL 25 MG CAPSULE PO (09:40)
[2023-05-31] MEDS: Acetaminophen 325 MG TABLET 650 MG PO (09:40)
[2023-05-31] MEDS: SODIUM CHLORIDE 0.9% IV (11:36)
[2023-05-31] MEDS: BELIMUMAB IV (11:36)
[2023-07-03 09:38] VITALS: BP 121/65; PULSE 72; RESP 14; TEMP 37; O2SAT 98
[2023-07-03] MEDS: SODIUM CHLORIDE 0.9% IV (11:10)
[2023-07-03] MEDS: BELIMUMAB IV (11:10)
[2023-07-03] MEDS: 0.9 % Sodium Chloride Flush 10 ML SYRINGE 5 ML IVFLUSH (11:13)
[2023-08-03 09:32] VITALS: BP 117/58; PULSE 78; RESP 18; TEMP 36.4; O2SAT 98
[2023-08-03] MEDS: BELIMUMAB IV (11:00)
[2023-08-03] MEDS: SODIUM CHLORIDE 0.9% IV (11:00)
[2023-08-03] MEDS: 0.9 % Sodium Chloride Flush 10 ML SYRINGE 5 ML IVFLUSH (12:13)
[2023-09-20 10:15] VITALS: BP 105/61; PULSE 69; RESP 18; TEMP 36.9; O2SAT 98
[2023-09-20] MEDS: SODIUM CHLORIDE 0.9% IV (11:21)
[2023-09-20] MEDS: BELIMUMAB IV (11:21)
[2023-09-20] MEDS: 0.9 % Sodium Chloride Flush 10 ML SYRINGE 5 ML IVFLUSH (12:34)
[2023-10-25 09:12] VITALS: BP 121/71; PULSE 74; RESP 16; TEMP 36.2; O2SAT 100
--- NOTE | 2023-10-25 10:43 | HO.INF ---
patient declined both acetaminophen and Benadryl.
[2023-10-25] MEDS: BELIMUMAB IV (11:06)
[2023-10-25] MEDS: SODIUM CHLORIDE 0.9% IV (11:06)
[2023-10-25] MEDS: 0.9 % Sodium Chloride Flush 10 ML SYRINGE 5 ML IVFLUSH (12:08)
[2023-11-22 09:17] VITALS: BP 127/51; PULSE 77; RESP 14; TEMP 36.1; O2SAT 99
[2023-11-22] MEDS: SODIUM CHLORIDE 0.9% IV (10:29)
[2023-11-22] MEDS: BELIMUMAB IV (10:29)
[2023-12-21 08:20] VITALS: BMI 25.9
[2023-12-21 08:21] VITALS: BP 103/51; PULSE 80; RESP 18; TEMP 36
[2023-12-21] MEDS: BELIMUMAB IV (10:02)
[2023-12-21] MEDS: SODIUM CHLORIDE 0.9% IV (10:02)
[2023-12-21 10:36] VITALS: BP 133/71; PULSE 68; RESP 16
[2024-01-15 12:11] VITALS: BP 113/61; PULSE 69; RESP 14; TEMP 36.6; O2SAT 98
[2024-01-15] MEDS: SODIUM CHLORIDE 0.9% IV (13:11)
[2024-01-15] MEDS: BELIMUMAB IV (13:11)
[2024-02-12 08:06] VITALS: BP 104/61; PULSE 82; RESP 14; TEMP 36.6; O2SAT 98
[2024-02-12] MEDS: SODIUM CHLORIDE 0.9% IV (09:21)
[2024-02-12] MEDS: BELIMUMAB IV (09:21)
[2024-02-12] MEDS: 0.9 % Sodium Chloride Flush 10 ML SYRINGE 5 ML IVFLUSH (10:28)
== END 2024-02-12 14:56 | disposition home or self-care (01) ==
LOC: HO.INF 11:30
PROVIDERS: Visit Provider Student in an Organized Health Care Education/Training Program
DX: M32.9 Systemic lupus erythematosus, unspecified (principal)
CPT/HCPCS: 96365; J0490

== ENCOUNTER 2024-05-13 11:43 | Outpatient (REF) | payer MEDICARE, SELFPAY ==
[2024-05-13 12:02] LABS: MANUAL DIFF FLAG NO
[2024-05-13 12:17] LABS: Basophils Percent Auto 0.7 % (0-2); Eosinophils Absolute Auto 0.1 X10*3/uL (0.0-0.4); Eosinophils Percent Auto 1.5 % (0-4); Hematocrit 35.5 % (37.0-47.0); Hemoglobin 11.5 g/dl (12.0-16.0); Imm Gran Abs Auto 0.01 X10*3/uL (0.00-0.03); Imm Gran Pct Auto 0.2 % (0.0-0.4); Lymphocytes Absolute Auto 1.8 X10*3/uL (1.2-4.9); Lymphocytes Percent Auto 29.6 % (20-40); Mean Corpuscular HGB Conc 32.4 g/dl (31.0-35.0); Mean Corpuscular Volume 95.7 fL (80.0-98.0); Mean Platelet Volume 10.4 fL (9.4-12.3); Monocytes Absolute Auto 0.5 X10*3/uL (0.1-1.2); Monocytes Percent Auto 7.7 % (2-11); Neutrophils Absolute Auto 3.6 x10*3/uL (2.0-8.3); Neutrophils Percent Auto 60.3 % (45-73); Platelet Count 230 X10*3/uL (160-400); Red Blood Count 3.71 X10*6/uL (4.20-5.50); Red Cell Distribution Width 14.2 % (11.0-16.0); White Blood Count 5.9 X10*3/uL (4.8-10.8)
[2024-05-13 12:30] LABS: Appearance Urine Clear; Color Urine Dark Yellow; Glucose Urine UA Negative (Negative); Leukocyte Esterase Urine Negative (Negative); Nitrite Urine Negative (Negative); PH 5.5 (5.0-9.0); Specific Gravity - Urine >= 1.030 (1.005-1.025); UMIC TRIGGER UA YES; Urine Blood Negative (Negative); Urine Ketones 15 mg/dL (Negative); Urine Protein 100 (2+) mg/dL (Neg-Trace)
[2024-05-13 12:43] LABS: Bacteria Urine None Seen (None Seen); RBC Urine 0-2 /HPF (0-2); Squamous Epithelial Cell Urine 0-2 /HPF (0-2); WBC Urine 0-5 /HPF (0-5)
[2024-05-13 12:57] LABS: Erythrocyte Sedimentation Rate 10 MM/HR (0-20)
[2024-05-13 13:07] LABS: HBS Num1 0.15 mIU/mL (0-7.99); HBc Num1 0.06 S/CO (0.00-0.79); HBsAGNum1 0.26 S/CO (0.00-0.99); Hepatitis B Core Antibody Nonreactive (Nonreactive); Hepatitis B Surface Antigen Negative (Negative); ~HepC Num1 0.11 S/CO (0.00-0.79); ~Hepatitis A Antibody IgM Nonreactive (Nonreactive); ~Hepatitis B Surface Antibody NONREACTIVE (Nonreactive); ~Hepatitis C Antibody Nonreactive (Nonreactive)
[2024-05-13 13:11] LABS: Protein/Creatinine Ratio, Ur 0.05 (<0.2); Total Protein Urine Random 23 mg/dL (<12)
[2024-05-13 15:47] LABS: Albumin Level 4.2 g/dL (3.5-5.0); Anion Gap 10 (12-20); Aspartate Amino Transferase 30 U/L (5-31); Bilirubin Total 0.5 mg/dL (0.0-1.0); Blood Urea Nitrogen 19 mg/dL (9-16); C Reactive Protein 0.17 mg/dL (< or = 0.50); Calcium 9.3 mg/dL (8.4-10.2); Carbon Dioxide 28 mmol/L (22-29); Chloride 108 mmol/L (96-108); Estimated Glomerular Filt Rate 55; Glucose Random 78 mg/dL (60-115); Potassium 3.8 mmol/L (3.3-5.1); Sodium 142 mmol/L (135-145); Total Protein 7.2 g/dL (6.5-8.0)
[2024-05-13 15:58] LABS: Alanine Aminotransferase 21 U/L (0-31); Alkaline Phosphatase 50 U/L (39-117)
[2024-05-14 14:24] LABS: Complement C3 77 mg/dL (83-193)
[2024-05-14 21:48] LABS: Anti DNA DS Antibody 1 IU/mL; Antibody to SS-A Antigen <1.0 NEG AI (<1.0 NEG); Antibody to SS-B Antigen <1.0 NEG AI (<1.0 NEG)
[2024-05-16 05:08] LABS: TS Negative Control Passed; TS Panel A 0; TS Panel B 0; TS Positive Control Passed; TSpotTB Negative (Negative)
[2024-05-17 08:33] LABS: DNAds, Crithidia Antibody Negative (Negative)
== END 2024-05-13 11:44 | disposition home or self-care (01) ==
LOC: HO.LAB 11:43
PROVIDERS: PCP Family Medicine; Visit Provider Student in an Organized Health Care Education/Training Program
DX: M32.9 Systemic lupus erythematosus, unspecified (principal); Z11.7 Encounter for testing for latent tuberculosis infection; Z11.59 Encounter for screening for other viral diseases; Z72.89 Other problems related to lifestyle
CPT/HCPCS: 36415; 80053; 81001; 82570; 84156; 85025; 85652; 86140; 86160; 86225; 86235; 86255; 86481; 86704; 86706; 86709; 86803; 87340

== ENCOUNTER 2024-05-29 07:58 | Outpatient (AMB) | payer MEDICARE, SELFPAY ==
--- NOTE | 2024-05-29 08:02 | MHC.OFFVIS ---
Vital Signs 05/29/24 08:13 Height 5 ft 4 in Weight 133 lb 13.129 oz BMI 23.0 BP 100/62 Blood Pressure Location Lt brachial Position Sitting Pulse 79 Pulse Source Pulse Oximeter Pulse Oximetry (%) 98 Oxygen Delivery Method Room Air Intake Visit Reasons: SLE Intake Note: Patient presents for SLE. Allergies No Known Allergies Allergy (Verified 05/29/24 08:08) Medication List - Last Reconciled 05/29/24 by Celia Muñoz MD albuterol sulfate 90 mcg/actuation 2 inhalations inhalation Q6H PRN 30 days Benlysta (belimumab) 200 mg subcut QWEEK NS cholecalciferol (vitamin D3) 25 mcg PO DAILY folic acid 1 mg PO DAILY gabapentin 600 mg PO BEDTIME hydroxychloroquine take 1 tab twice daily x6 days a week and 1 tab once daily X 1 day a week tirzepatide (weight loss) 2.5 mg subcut QWEEK trazodone 50 mg PO BEDTIME PRN HPI Comments Details: Patient is a 64-year-old female with overlap syndrome (MCTD/Sjogren's/SLE) who presents today for follow up. Interval History: Patient last seen 01/29/[address] Fontenot. At that time she was on Benlysta monthly infusions as well as hydroxychloroquine. She was doing well overall with no flares or morning stiffness. After that visit she wanted to change from infusions to subcu injections due to insurance issues and so it was changed. Her gabapentin was reduced to 600 mg nightly due to complains of dizziness Today, Patient reports she continues to do well Benlysta SC at home doing well, hurt but able to do them Still has the dizziness despite lowering the gabapentin dose. 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 DC 01/2023 Benlysta infusions 04/2023 effective. Switched to SC 01/2024 due to insurance issues. effective Right great saphenous vein official thrombophlebitis 05/2023. I prescribed Eliquis for 3 months. Repeat venous duplex was negative. Patient is now using compression stockings + lupus anticoagulant Current Rheumatology Medication(s): Benlysta 200 mg sc every week Plaquenil 400 mg 6 days a week and 200 mg 1 day a week Gabapentin 600mg PFSH Medical History Pulmonary nodule Lymphadenopathy Transaminitis Palpitations Ovarian cyst Hearing loss Surgical History Hx of knee surgery Hx of tonsillectomy Family History Maternal Grandmother Raynaud disease Osteoarthritis Sister Rheumatoid arthritis Mother Colon cancer Father Congestive heart failure Social History Alcohol intake: current Alcohol intake frequency: other Patient Tobacco Use Status: Current someday Tobacco user e-Cigarette/Vaping Use: Never Used Review of Systems Const Details: Review of Systems Constitutional: Denies fever, chills, weight loss ENT: Denies vision changes, eye pain or eye redness, dental caries, dry mouth GI: Denies nausea, vomiting, diarrhea, abdominal pain, change in BM Pulm: Denies SOB, BISWAS, hemoptysis, wheezing Cards: Denies chest pain, palpitations Skin: Denies Raynaud's, rash, nail changes, photosensitivity, REVIEW APPRAISER: Denies headaches, weakness, paresthesias, recurrent falls MSK: as per HPI All other systems reviewed and are unremarkable except noted above Physical Exam Vital Signs: Last Vital Signs Pulse 79 05/29/24 08:13 BP 100/62 05/29/24 08:13 Pulse Ox 98 05/29/24 08:13 Oxygen Delivery Method Room Air 05/29/24 08:13 BMI result Body Mass Index 23.0 Vital signs reviewed Physical Examination CONSTITUITIONAL Patient alert and cooperative. Well appearing and in no apparent painful distress HEENT Conjunctiva and sclera clear. ?Pupils equal round and reactive to light. ?No lymphadenopathy. ? CHEST/RESPIRATORY SYSTEM Normal respiratory effort and able to speak in complete sentences. ?Clear to auscultation bilaterally. ?No crackles, rales, rhonchi, wheezes heard. CARDIAC SYSTEM Regular rate and rhythm. ?S1 and S2 heard no murmurs. ?Radial pulses intact bilaterally MSK Hands: ?Good law reporter strength bilaterally. No deformities noted. ?No synovitis noted to the MCPs, PIPs or DIPs. ?No tenderness to palpation of these joints. Wrists: ?Full range of motion at the wrists without pain. ?No tenderness to palpation or synovitis noted to the wrists. Elbows: Full range of motion without pain. No tenderness, weakness, swelling, increased warmth or erythema. Shoulders: Full range of motion without pain. No tenderness, weakness, swelling, increased warmth or erythema. Hips: Full range of motion without pain. Hip bursa: No tenderness to palpation Knees: ?Full range of motion. ?No tenderness, swelling, increased warmth or erythema.?No effusion or crepitations Ankles: Full range of motion. ?No tenderness, swelling, increased warmth or erythema.? Feet: ?Negative squeeze test. ?No tenderness to palpation or swelling of the MTPs. Tender points:?No tenderness to palpation of the bilateral trapezius, supraspinatus, greater trochanters, anterior costochondral junctions, bilateral gluteal areas, bilateral suboccipital muscle insertions SKIN Skin intact without rashes. Results Reviewed Results Reviewed: Laboratory Tests 05/13/24 11:56 WBC 5.9 RBC 3.71 L Hgb 11.5 L Hct 35.5 L Plt Count 230 ESR 10 Sodium 142 Potassium 3.8 Chloride 108 Carbon Dioxide 28 BUN 19 H Creatinine 1.02 AST 30 ALT 21 C-Reactive Protein 0.17 Immunology labs 01/15/24 05/13/24 11:51 11:56 SS-A/Ro Antibody <1.0 NEG SS-B/La Antibody <1.0 NEG Double Strand DNA Ab 1 Anti-ds DNA (Crithidia) Negative Complement C3 87 77 L Complement C4 19 16 Infectious serologies 05/13/24 11:56 Hepatitis A IgM Ab Nonreactive Hep Bs Antigen Negative Hep Bs Antibody NONREACTIVE Hep B Core Total Ab Nonreactive Hepatitis C Ab (EIA) Nonreactive TB Test (T-Spot) Com Negative Assessment & Plan Assessment & Plan (1) Mixed connective tissue disease: Comment: dx 2017 (Raynaud's, arthralgias, dry eye under states this, dry 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 DC 01/2023 Benlysta infusions 04/2023 - 01/2024. INsurance issues Benlysta SC 01/2024. effective Code(s): M35.1 - Other overlap syndromes Category: Medical Plan: #MCTD/Lupus Patient is a 64-year-old female with mixed connective tissue disease/lupus here today for follow up. Patient is currently in remission. Does get intermittent episodes of brain fog/fatigue which are intermittent and nonsustained. This could potentially be related to her underlying MCTD/lupus however given that there is no worsening of her symptoms overall we will not escalate therapy at this time. Note is made of her low complement specifically C3. We will continue to monitor this. We discussed potentially stopping her gabapentin to see if that helps or contributes to her brain fog/dizziness but patient states that she has forgotten to take her gabapentin in the past and if she does forget it is associated with poor sleep and worsening neuropathic pain. Based on this we will continue her gabapentin at its current dose and continue to monitor her symptoms. 2D echo and PFT were done in 2022 to screen for ILD and PAH. 2D echo was unremarkable. PFTs showed no signs suggestive of restrictive lung disease. Showed signs suggestive of obstructive lung disease which is managed by Dr. Kelly Plan - Continue Benlysta 200mg SC every week - Continue plaquenil 400mg 6 days a week and 200mg 1 day a week - Continue gabapentin 600mg nightly - RTC 4 months - Labs before visit: CBC, CMP, ESR, CRP, C3, C4, dsDNA, UA, UPC (2) Sjogren syndrome with keratoconjunctivitis: Code(s): M35.01 - Sjogren syndrome with keratoconjunctivitis Category: Medical Plan: #Sjogren's Syndrome Patient currently on cyclosporine eyedrops. Cevimeline was minimally helpful and caused nocturnal incontinence and so this was stopped Plan - Continue to follow with Ophthalmology - Continue Biotene mouthwash and other conservative measures (3) Long-term use of hydroxychloroquine: Comment: Eye exam 10/2023 okay Code(s): Z79.899 - Other snf (current) drug therapy Category: Medical Plan: #Long-term Use of Hydroxychloroquine Discussed with patient the risks and benefits of hydroxychloroquine in managing the rheumatic condition Benefits include: - Reduced pain, reduce mortality, maintenance of remission and reduction of flares Risks include: - GI upset, skin hyperpigmentation, retinal toxicity (especially after more than 5 years of use), myopathy Advised yearly ophthalmology visits Last ophthalmology visit: 10/2023 (4) Encounter for monitoring of belimumab therapy: Code(s): Z51.81 - Encounter for therapeutic drug level monitoring; Z79.620 - alf (current) use of immunosuppressive biologic Plan: #alf Belimumab Discussed with patient the risks and benefits of hydroxychloroquine in managing the rheumatic condition Benefits include: - Reduced pain, reduce mortality, maintenance of remission and reduction of flares Risks include: - insomnia, injection site reactions, psychiatric events such as worsening depression/anxiety or suicidal ideation, increased risk of infection Plan I spent 32 minutes reviewing the record and labs, taking a history, examining the patient, discussing the treatment plan, ordering diagnostic work up and documenting in the medical record Orders: Orders Protein Creatinine Ratio, Ur 4 Months M35.1 - Other overlap syndromes Complement C3 4 Months M35.1 - Other overlap syndromes Complement C4 4 Months M35.1 - Other overlap syndromes Rheumatoid Factor 4 Months M35.1 - Other overlap syndromes Protein Electrophoresis, Serum 4 Months M35.1 - Other overlap syndromes UA w Microscopic 4 Months M35.1 - Other overlap syndromes Erythrocyte Sedimentation Rate 4 Months M35.1 - Other overlap syndromes Anti DNA DS Antibody 4 Months M35.1 - Other overlap syndromes C Reactive Protein 4 Months M35.1 - Other overlap syndromes Vitamin D 25-OH Total 4 Months M35.1 - Other overlap syndromes Complete Blood Count Auto Diff 4 Months M35.1 - Other overlap syndromes Comprehensive Met. Panel 4 Months M35.1 - Other overlap syndromes Immunofixation Pnl, Serum 4 Months M35.1 - Other overlap syndromes Medications: Refilled gabapentin 600 mg PO BEDTIME 30 tabs 3RF M35.1 - Other overlap syndromes Benlysta (belimumab) 200 mg subcut QWEEK 4 mL 3RF NS M32.9 - Systemic lupus erythematosus, unspecified hydroxychloroquine take 1 tab twice daily x6 days a week and 1 tab once daily X 1 day a week 168 tabs 1RF M35.1 - Other overlap syndromes Coding Level of Care Code Est Pt Level 4 (00303) Complex EM visit Add On G2211 Diagnoses Mixed connective tissue disease M35.1 Sjogren syndrome with keratoconjunctivitis M35.01 Long-term use of hydroxychloroquine Z79.899 Encounter for monitoring of belimumab therapy Z51.81; Z79.620
--- OUTSIDE RECORDS SUMMARY | 2024-05-29 08:03 | XMS_ITS | Data Portability ---
Author Organization [place] - [facility], Allergy Address [address] [address] Care Team Providers Care Block Captain Name Role Phone DARYN ANGELO Primary Care Provide r CATINA NEIL OTHER Assessment Encounter Date Assessment Date Assessment LastModified by Organization Details LastModified Time 11/14/2023 11/14/2023 63-year-old female with a history of Sjogren's and lupus presents today for worsening voice. Flexible laryngoscopy was today revealing no mass or lesion. There is some mild bowing with central glottic gap without any lesion or paralysis. I did review voice hygiene. Consider voice therapy for worsening symptoms. [email or web address] Not available 11/20/2023 09:57:56 Plan of Treatment Reminders Order Date Submit Date Provider Last Modified By Organization Details Last Modified Time Details Appointments None record ed. Lab None record ed. Referral None record ed. Procedures None record ed. Surgeries None record ed. Imaging None record ed. Medication Orders None record ed. Patient TargetsNo targets recorded. Patient InstructionsNo instructions recorded. Reason for Referral None Reported. Results Created Date Observation Date Name Description Value Unit Range Abnormal Flag Note LastModifiedBy Organization Detail LastModifiedTime 10/17/19 24 09/23/2021 imagi ng/di agnos tic resul t No observ ation record ed. [email or web address] Not Available 22:27:36 10/17/19 24 03/06/2019 audio gram No observ ation record ed. [email or web address] Not Available 22:28:01 10/17/19 24 05/06/2020 audio gram No observ ation record ed. [email or web address] Not Available 22:28:07 10/17/19 24 09/05/2018 audio gram No observ ation record ed. [email or web address] Not Available 22:28:20 10/17/19 24 09/23/2021 audio gram No observ ation record ed. [email or web address] Not Available 22:28:27 10/17/19 24 11/15/2021 audio gram No observ ation record ed. [email or web address] Not Available 22:28:37 Result Notes None recorded. 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, left ear; Note: Date Diagnosed : 10/19/2017 1:38 PM (H83.02) Not Available [facility] 4 03:09:30 Epidemic vertigo 052471577 Active 2017 Vestibula r neuroniti s, left ear; Note: Date Diagnosed : 10/19/2017 1:38 PM (H81.22) Not Available [facility] 4 03:09:29 Sensorine ural hearing loss of bilateral ears 147173872 Active 2017 Sensorine ural hearing loss, bilateral ; Note: Date Diagnosed : 10/19/2017 1:18 PM (H90.3) Not Available [facility] 4 03:09:30 Paresthes ia 22375479 Active 2017 Paresthes ia of skin; Note: Date Diagnosed : 8 2:51 PM (R20.2) Not Available [facility] 4 03:09:31 Tinnitus of left ear 09913328146 06 Active 2017 Tinnitus, left ear; Note: Date Diagnosed : 10/19/2017 1:18 PM (H93.12) Not Available [facility] 03:09:29 Dysphonia 92250790 Active 2023 KATHRIN AVILA MD [address] [facility],[place] [address], [place], [address] , [facility] 15:21:20 Problem Notes None recorded. Procedures Surgical History Date Name Laterality Status Provider Name and Address Organization Details Recorded Time 11/14/19 24 Fiberoptic Laryngoscopy (Comprehensive) completed KATHRIN AVILA MD [address] [facility],[place] [address], [place], [address], [facility] 11/14/2023 15:21:15 Imaging Results Imaging Date Name Status LastModified by Organiz ation Details LastModified Time 09/23/2021 imaging/diagno stic result completed Information not available 10/17/2023 22:27:36 03/06/2019 audiogram completed Information not available 10/17/2023 22:28:01 05/06/2020 audiogram completed Information not available 10/17/2023 22:28:07 09/05/2018 audiogram completed Information not available 10/17/2023 22:28:20 09/23/2021 audiogram completed Information not available 10/17/2023 22:28:27 11/15/2021 audiogram completed Information not available 10/17/2023 22:28:37 Procedure Notes None recorded. Medical Equipment None Reported. Allergies No known drug allergies Medications Name Sig Start Date Stop Date Status Note LastModified by Organization Details LastModified Time trazodone 50 mg tablet active Medicati on ID: [id number] B rand Name: trazodon e Send Method: E-Prescr ibed Sub s Allowed: subs OK Medic ationGen ericName : trazodon e Not Available Not Available Not Available gabapenti n 400 mg capsule TAKE 2 CAPSULES BY MOUTH EVERY DAY AT NIGHT active Not Available Not Available No t Available meclizine 12.5 mg tablet Take 1 tablet once a day as needed 09/23 completed Medicati on ID: [id number] B rand Name: meclizin e Send Method: E-Prescr ibed Sub s Allowed: subs OK Medic ationGen ericName : meclizin e Not Available Not Available Not Available methotrex ate sodium 2.5 mg tablet 11/13 completed Medicati on ID: [id number] B rand Name: methotre xate sodium S end Method: E-Prescr ibed Sub s Allowed: subs OK Medic ationGen ericName : methotre xate sodium Not Available Not Available Not Available cevimelin e 30 mg capsule active Medicati on ID: [id number] B rand Name: cevimeli ne Send Method: E-Prescr ibed Sub s Allowed: subs OK Medic ationGen ericName : cevimeli ne Not Available Not Available Not Available betametha sone dipropion ate 0.05 % topical cream APPLY TO AFFECTED AREA TWICE A DAY 11/13 completed Not Available Not Available Not Available hydroxych loroquine 200 mg tablet TAKE 1 TABLET BY MOUTH TWICE A DAY FOR 6 DAYS A WEEK AND 1 TAB DAILY 1 DAY A WEEK active Not Available Not Available No t Available albuterol sulfate HFA 90 mcg/actua tion aerosol inhaler INHALE 2 [PUFF BY MOUTH EVERY 6 HOURS NEEDED FOR SHORTNES S OF BREATH OR WHEEZING FOR 30 DAYS active Not Available Not Available No t Available ondansetr on 4 mg disintegr ating tablet TAKE 1 TABLET UNDER THE TONGUE EVERY 8 HOURS NEEDED FOR NAUSEA 11/13 completed Not Available Not Available Not Available cyclobenz aprine 5 mg tablet TAKE 1 TABLET BY MOUTH THREE TIMES A DAY NEEDED FOR MUSCLE SPASMS 11/13 completed Not Available Not Available Not Available Benlysta 120 mg intraveno us solution Inject by intraven ous route. active Not Available Not Available No t Available Eliquis 5 mg tablet TAKE 1 TABLET BY MOUTH TWICE A DAY 11/13 completed Not Available Not Available Not Available Arnuity Ellipta 100 mcg/actua tion powder for inhalatio n INHALE 1 PUFF DAILY active Not Available Not Available No t Available Vitals Date Recorded Body height Body mass index (BMI) Body weight Provider Name and Address Organization Details Last Updated DateTime 11/14/2023 162.56 cm 26.3 kg/m2 57709.63 g Caroline Potvin [place] - [facility] 11/14/2023 14:45:15 Social History None recorded. Functional Status None recorded. Mental Status None recorded. Family History Nothing Reported. Medical History No medical history recorded. Gynecological HistoryNo gynecological history recorded. Obstetrics History GPAL:G 0 P 0 0 0 0 Past Encounters Encounter ID Performer Location Encounter Start Date Encounter Closed Date Diagnosis/Indication Diagnosis SNOMED-CT Code Diagnosis ICD10 Code Diagnosis Note [id number] KATHRIN AVILA MD [facility] on [address] [facility] [place] [address] 11/14/2023 14:40:44 11/14/2023 16:19:00 Dysphonia 48131655 R49.9 Health Concerns Section Related Observation LastModified by Organization Detai ls LastModified Time None Recorded Concern Status LastModified by Organization Details LastModified Time None Recorded Advance Directives Directive None Recorded Payers Encounter Date Sequence Insurance Name Policy Number Policy Payan Covered Member ID Payna Member ID Guarantor Name 11/14/[address] [facility]: MEDICARE PPO BLUE (MEDICARE REPLACEMENT PPO) [id number] Caroline L Deborah [id number] Caroline Lacy Deborah Notes Date Note Type Note Provider Name and Address Organization Details Recorded Time 11/14/2023 text/html 63 yo F with a h istory of sjogren's, dx 4 years ago.New dx lupus based on blood work. Sees Dr. Quach.voice has worsened in the last months. On hydroxychloroquine and Bylista. Arthritis previously before hydroxychloroquine. Sore from talking. Uses ice water. Sometimes dysphagia, especially pills. No otalgia. Does have hearing loss, wears YOUNG. No heartburn. No allergies or nasal drip. Occasional hayfever. Does not use voice a lot. KATHRIN AVILA MD [address] [place] [address], [place], [address], [place] - [facility] 11/20/2023 09:58:14 OBGyn Episode No OBEpisode recorded.
[2024-05-29 08:13] VITALS: BP 100/62; PULSE 79; O2SAT 98; BMI 23.0
== END 2024-05-29 08:48 | disposition home or self-care (01) ==
LOC: HO.RHE 07:58
PROVIDERS: PCP Family Medicine; Visit Provider Student in an Organized Health Care Education/Training Program
DX: M35.1 Other overlap syndromes (principal); M35.01 Sjogren syndrome with keratoconjunctivitis; Z79.899 Other long term (current) drug therapy; Z51.81 Encounter for therapeutic drug level monitoring; Z79.620 Long term (current) use of immunosuppressive biologic
CPT/HCPCS: 99214; G2211

== ENCOUNTER → 2024-05-29 07:58 | Outpatient (BNVA) | payer MEDICARE, SELFPAY | PROVIDERS: PCP Family Medicine; Visit Provider Student in an Organized Health Care Education/Training Program | DX: M35.1 Other overlap syndromes (principal); M35.01 Sjogren syndrome with keratoconjunctivitis; Z51.81 Encounter for therapeutic drug level monitoring; Z79.899 Other long term (current) drug therapy; Z79.620 Long term (current) use of immunosuppressive biologic | CPT/HCPCS: 99212 ==

== ENCOUNTER 2024-06-10 14:35 | Outpatient (AMB) | payer MEDICARE, SELFPAY ==
--- NOTE | 2024-06-10 14:36 | MHC.OFFVIS ---
Vital Signs 06/10/24 14:37 Height 5 ft 4 in Weight 131 lb 2.801 oz BMI 22.5 BP 96/50 L Blood Pressure Location Rt brachial Position Sitting Pulse 79 Pulse Source Pulse Oximeter Pulse Oximetry (%) 98 Oxygen Delivery Method Room Air Intake Visit Reasons: COPD Allergies No Known Allergies Allergy (Verified 06/10/24 14:40) HPI Comments Details: The patient is a 64 year woman with a known history of a mixed connective tissue disorder being followed closely by Rheumatology. She had been on methotrexate for a long time however, there was some liver issues and therefore now be switching over to a new agent, Benlysta. She has also been on the hydrochloroquine which she tolerates well. She notices that time she has some episodes of chest tightness. Substernal pressure. This is intermittent. Sometimes aggravated by cold air sometimes by exercise. She was unsure if it was hard or her lungs. She did undergo a CT scan of the chest some where it could [place]. I will request the report. In addition to that she underwent an echocardiogram which is reassuring. The patient also had pulmonary function studies. The PFTs were personally by me demonstrating what appears to be a partially reversible obstruction. It also significant airway disease this is suspicious of uncontrolled asthma or in her case for likely bronchiolitis related to her underlying connective tissue disease. In any case it will be still treated similarly so therefore will start her on respiratory therapy. If the patient does not respond to the therapy then we can consider additional testing at that point. I am going to prescribe her Symbicort. I did recommend she start Symbicort 1 puff twice a day as needed. She can always increase it to 2 puffs if she needs additional medication. 05/25/2023 the patient is here for a pulmonary follow-up visit. Overall the patient has been doing well. She did start the Arnuity inhaler and she has been getting significant improvement. Initially want her to be on Symbicort but she could not get it approved. She noticed significant improvement. She has not had to use her rescue inhaler in the chest pressure sensation have significantly improved. We did again review her PFTs demonstrating the reversible obstruction. 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 The fact that his better is reassuring. I have yet to get the CT scan of the chest that she had a [place]. Want to make sure she does not have any evidence of any interstitial lung disease mentioned. The patient should either have a repeat CT scan if she has changes on the CT scan or potentially get an x-ray to make sure that we have a baseline. In the meantime she should continue with exercise capacity. She is off the methotrexate at this time and is currently tolerating the Benlysta which is excellent. 12/04/2023 the patient is here for a pulmonary follow-up visit. The patient overall has been doing better. The Anoro inhaler initially started has not to her respiratory symptoms significantly. She is pretty happy with the improvement in her respiratory symptoms. However, she has been noticing that she is getting more hoarse. She has been losing her voice. She did have an ENT evaluation and did have laryngoscopy in did not find any lesions. Explained to her that the powder inhaler can result in the hoarseness. She does gargle well after using it but still difficult to remove all the sediment from the medication. Therefore, the patient has failed the powdered inhaler and will therefore switch over to a HFA formulation. I did send asthma next to the pharmacy. Will have to do prior approval. I also did provide the patient spacer in order to minimize upper airway irritation and hoarseness. The patient also had a CT scan of the chest in 07/17/2023 which I personally reviewed. She has no evidence of any parenchymal lung disease. Her airways appeared to be stable and I do not appreciate any mosaic pattern. Although she does have some small pulmonary nodules noted subcentimeter in size in the right hemithorax. These nodules were not documented in the final report but there are present. Therefore, will discuss repeating the CT scan sometime in the fall 2024. 06/10/2024 the patient is here for a pulmonary follow-up visit. Overall she is doing about the same. Still complaining of the hoarseness. As far as her breathing she seems to be doing okay just on the short-acting beta agonist. Although she knows her symptoms typically worsening the spring and she gets active doing exercises. We did try to get her on inhaled cortical steroids but she did not tolerate the powder specially because she has Sjogren's and she gets very dry and powder bothers her. So therefore we try getting her asthma next which is approved but can not get it because it was back order. Then we placed her on Advair HFA which she tried but a did cause hoarseness. So she stopped it. Now as far as options we can consider Alvesco which will be a better agent for her to minimize irritation to the vocal cords. In the meantime the patient also has some irritation to the back of the throat. Appears to be likely in the soft palate although will go ahead and give her call his being mouthwash to make sure that the hoarseness not from a smoldering infection. [facility] Medical History Pulmonary nodule Lymphadenopathy Transaminitis Palpitations Ovarian cyst Hearing loss Surgical History Hx of knee surgery Hx of tonsillectomy Family History Maternal Grandmother Raynaud disease Osteoarthritis Sister Rheumatoid arthritis Mother Colon cancer Father Congestive heart failure Social History (Updated 06/10/24 @ 14:40 by Cammy Singleton [facility]) Alcohol intake: current Alcohol intake frequency: other Patient Tobacco Use Status: Former Tobacco user e-Cigarette/Vaping Use: Never Used Review of Systems Const Denies fever(s) Eyes Reports dry eyes ENT Reports dry mouth and Reports hoarseness Card Denies chest pain and Reports dyspnea on exertion Resp Reports dyspnea on exertion and Denies wheezing GI Reports no additional complaints Reports no additional complaints Musc Reports as per HPI, Reports joint swelling and Reports stiffness Skin/Breast Denies rash [place]/Lymph Denies lymphadenopathy Aller/Immun Denies wheezing Physical Exam Vital Signs: Last Vital Signs Pulse 79 06/10/24 14:37 BP 96/50 L 06/10/24 14:37 Pulse Ox 98 06/10/24 14:37 Oxygen Delivery Method Room Air 06/10/24 14:37 BMI result Body Mass Index 22.5 Const General: comfortable HEENT Head: Yes normocephalic Neck Neck: Yes supple Chest Chest palpation & inspection: normal inspection of the chest Resp Effort & Inspection: normal respiratory effort and No prolonged expiratory phase Auscultation: clear to auscultation bilaterally and no wheezes Cardio Heart sounds: S1 normal heart sound present and S2 normal heart sound present GI Palpation (GI): Soft to palpation Skin General skin exam: no rashes or lesions noted Extrem General: Yes no clubbing, cyanosis or edema Assessment & Plan Assessment & Plan (1) Shortness of breath on exertion: Code(s): R06.02 - Shortness of breath Category: Medical (2) Obstructive airway disease: Comment: Partially reversible obstruction, Asthma 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 DC 01/2023 Benlysta infusions 04/2023 - 01/2024. INsurance issues Benlysta SC 01/2024. effective Code(s): M35.1 - Other overlap syndromes Category: Medical (4) Pulmonary nodule: Code(s): R91.1 - Solitary pulmonary nodule Category: Medical (5) Hoarseness: Code(s): R49.0 - Dysphonia Category: Medical Plan failed Arnuity due to worsening hoarseness. Does not tolerate powdered inhalers. Did not tolerate Advair HFA. Will request Alvesco HFA DEISI as needed Exercise as tolerated Chlorhexadine x 14 days F/U 6 months Medications: New ciclesonide 80 mcg/actuation (Alvesco) 1 puff inhalation BID 6.1 grams 8RF chlorhexidine gluconate 0.12% 15 mL buccal BID 473 mL 0RF 14 days Coding Level of Care Code Est Pt Level 4 (44116) Complex EM visit Add On G2211 Diagnoses Shortness of breath on exertion R06.02 Obstructive airway disease J44.9 Mixed connective tissue disease M35.1 Pulmonary nodule R91.1 Hoarseness R49.0 Time Spent (min) 17
[2024-06-10 14:37] VITALS: BP 96/50; PULSE 79; O2SAT 98; BMI 22.5
--- OUTSIDE RECORDS SUMMARY | 2024-06-10 17:01 | XMS_ITS | Data Portability ---
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, left ear; Note: Date Diagnosed : 10/19/2017 1:38 PM (H83.02) Not Available [facility] 4 03:09:30 Epidemic vertigo 502779058 Active 2017 Vestibula r neuroniti s, left ear; Note: Date Diagnosed : 10/19/2017 1:38 PM (H81.22) Not Available [facility] 4 03:09:29 Sensorine ural hearing loss of bilateral ears 444673052 Active 2017 Sensorine ural hearing loss, bilateral ; Note: Date Diagnosed : 10/19/2017 1:18 PM (H90.3) Not Available [facility] 4 03:09:30 Paresthes ia 71757900 Active 2017 Paresthes ia of skin; Note: Date Diagnosed : 8 2:51 PM (R20.2) Not Available [facility] 4 03:09:31 Tinnitus of left ear 13268106539 06 Active 2017 Tinnitus, left ear; Note: Date Diagnosed : 10/19/2017 1:18 PM (H93.12) Not Available [facility] 03:09:29 Dysphonia 99971020 Active 2023 KATHRIN AVILA MD [address] [facility],[place] [address], [place], [address] , [facility] 15:21:20 Problem Notes None recorded. Procedures Surgical History Date Name Laterality Status Provider Name and Address Organization Details Recorded Time 11/14/19 24 Fiberoptic Laryngoscopy (Comprehensive) completed KATHRIN AVILA MD [address] [facility],[place] [address], [place], [address], [facility] 11/14/2023 15:21:15 Imaging Results Imaging Date Name [...] 50 mg tablet active Medicati on ID: [id number] B rand Name: trazodon e Send Method: [...] as needed 09/23 completed Medicati on ID: [id number] B rand Name: meclizin e Send Method: E-Prescr ibed Sub s Allowed: subs OK Medic ationGen ericName : meclizin e Not Available Not Available Not Available methotrex ate sodium 2.5 mg tablet 11/13 completed Medicati on ID: [id number] B rand Name: methotre xate sodium S end Method: E-Prescr ibed Sub s Allowed: subs OK Medic ationGen ericName : methotre xate sodium Not Available Not Available Not Available cevimelin e 30 mg capsule active Medicati on ID: [id number] B rand Name: cevimeli ne Send Method: [...] Updated DateTime 11/14/2023 162.56 cm 26.3 kg/m2 25355.63 g Caroline Potvin [place] - [facility] 11/14/2023 14:45:15 Social History None recorded. Functional Status None recorded. Mental Status None recorded. Family History Nothing Reported. Medical History No medical history recorded. Gynecological HistoryNo gynecological history recorded. Obstetrics History GPAL:G 0 P 0 0 0 0 Past Encounters Encounter ID Performer Location Encounter Start Date Encounter Closed Date Diagnosis/Indication Diagnosis SNOMED-CT Code Diagnosis ICD10 Code Diagnosis Note [id number] KATHRIN AVILA MD [facility] on [address] [place] [address] 11/14/2023 14:40:44 11/14/2023 16:19:00 Dysphonia 50693799 R49.9 Health Concerns Section Related Observation LastModified by Organization Detai ls LastModified Time None Recorded Concern Status LastModified by Organization Details LastModified Time None Recorded Advance Directives Directive None Recorded Payers Encounter Date Sequence Insurance Name Policy Number Policy Payan Covered Member ID Payan Member ID Guarantor Name 11/14/2023 1 [facility]: MEDICARE PPO BLUE (MEDICARE REPLACEMENT PPO) [id number] Caroline L Deborah [id number] Caroline Lacy Deborah Notes Date Note [...] use voice a lot. KATHRIN AVILA MD [address] [place] [address], [place], [address], [place] - [facility] 11/20/2023 09:58:14 OBGyn Episode No OBEpisode recorded.
== END 2024-06-10 15:05 | disposition home or self-care (01) ==
LOC: HO.HPS 14:35
PROVIDERS: PCP Family Medicine; Visit Provider Hospitalist
DX: R06.02 Shortness of breath (principal); J44.9 Chronic obstructive pulmonary disease, unspecified; M35.1 Other overlap syndromes; R91.1 Solitary pulmonary nodule; R49.0 Dysphonia
CPT/HCPCS: 99214; G2211

== ENCOUNTER → 2024-06-10 14:35 | Outpatient (BNVA) | payer MEDICARE, SELFPAY | PROVIDERS: PCP Family Medicine; Visit Provider Hospitalist | DX: R49.0 Dysphonia (principal); J44.9 Chronic obstructive pulmonary disease, unspecified; R06.02 Shortness of breath; R91.1 Solitary pulmonary nodule; M35.1 Other overlap syndromes | CPT/HCPCS: 99212 ==

== ENCOUNTER 2024-09-20 12:31 | Outpatient (REF) | payer MEDICARE, SELFPAY ==
--- OUTSIDE RECORDS SUMMARY | 2024-09-20 12:33 | XMS_ITS | Clinical Summary ---
Author Organization [facility] Address [address] [facility] [address] [place] [phone] Phone Care Team Providers Care Sequins Stringer Name Role Phone Nando Del Rosario MD Primary Care Prov ider Juarez Ziegler MD Unavailable [phone] Allergies Active Allergy Reactions Criticality Noted Date Comments Other 04/18/2018 Seasonal allergies Medications traZODone (DESYREL) 50 MG tabletIndications :takes about 2 times a month Take 50 mg by mouth nightly at bedtime as needed. Active omega 3-dhz-bnd-fish oil 1,000 mg (120 mg-180 mg) Cap Take 1 capsule by mouth daily. Active calcium carb/mag carb/folic ac (MAGNEBIND 400 ORAL)Indications: unsure strength Take by mouth. Indications: unsure strength Active coenzyme Q10 10 mg capsule Take 10 mg by mouth daily. Active therapeutic multivitamin tablet Take 1 tablet by mouth daily. Active cyanocobalamin, vitamin B-12, (VITAMIN B-12) 5,000 mcg/mL DropIndications:u nsure strength Place under the tongue. Indications: unsure strength Active TURMERIC ORAL Take by mouth 2 (two) times a day. Active CANNABIDIOL, CBD, EXTRACT ORALIndications:a s needed Take by mouth. Indications: as needed Active hydroxychloroquin e (PLAQUENIL) 200 mg tabletIndications :ULISES positive,Raynaud' s disease without gangrene Take 1 tablet (200 mg total) by mouth 2 (two) times a day. 180 tablet 1 9 Active gabapentin (NEURONTIN) 400 MG capsuleIndication s:Tingling of face,Facial numbness TAKE 2 CAPSULES BY MOUTH EVERY EVENING 180 capsule 2 0 Active ergocalciferol (DRISDOL) 50,000 unit capsuleIndication s:Vitamin D insufficiency,ULISES positive,Raynaud' s disease without gangrene TAKE ONE CAPSULE BY MOUTH ONE TIME PER WEEK 13 capsule 1 0 Active folic acid (FOLVITE) 1 MG tablet TAKE 1 TABLET BY MOUTH EVERY DAY 1 Active methotrexate 2.5 MG Oral tablet TAKE 9 TABLETS BY MOUTH ALL AT ONCE EACH WEEK 1 Active Lactobacillus acidophilus (PROBIOTIC ORAL) Take by mouth. Active Active Problems Patient Care Coordination No te Formatting of this note migh t be different from the original. Height 160.3cm no shoes AT 08/12/20 Problem Noted Date Diagnosed Date Lymphadenopathy, axillary 06/04/2019 Mixed connective tissue disease 12/20/2018 Assessment & Plan (12/30/2018 4:38 PM EST): Continue Plaquenil 200 mg twice daily. Daily sun protection strongly encouraged. Carefully continue gabapentin 800 mg nightly to reduce tingling, numbing and burning in her hands and allow to sleep. Follow modified Paleo with. Continue daily walking as tolerated. OT offered for splinting, assistive devices and gentle compression gloves to reduce swelling. Get yearly influenza vaccination today. Long-term use of Plaquenil 12/20/2018 Assessment & Plan (12/30/2018 4:39 PM EST): Take exactly as prescribed. See geriatric nursing assistant regularly at least every 6-12 months. Daily sun protection Raynaud's disease without gangrene 08/17/2018 Assessment & Plan (12/20/2018 12:02 PM EDT): Due to progressive frequency of episodes I provided her with pamphlet on vasodilator-nifedipine that may need to be employed. Keep warm, dress in layers. Optimize stress management strategies. Avoid vasoconstrictors in OTC products for cold/flu and sinus. Assessment & Plan (10/30/2018 1:58 PM EDT): Due to progressive frequency of episodes I provided her with pamphlet on vasodilator-nifedipine that may need to be employed. Keep warm, dress in layers. Optimize stress management strategies. Avoid vasoconstrictors in OTC products for cold/flu and sinus. Assessment & Plan (08/22/2018 11:28 PM EDT): Due to progressive frequency of episodes I provided her with pamphlet on vasodilator-nifedipine that may need to be employed. Keep warm, dress in layers. Optimize stress management strategies. Avoid vasoconstrictors in OTC products for cold/flu and sinus. Arthralgia of multiple sites 08/17/2018 Assessment & Plan (08/22/2018 11:29 PM EDT): Joint protection, energy conservation. Avoid falls, injuries, overuse. Gentle, regular exercise routine. Assistive devices, splinting, topical creams versus medicated patches as needed. Consider formal OT when ready. ULISES positive 04/18/2018 Assessment & Plan (10/30/2018 2:12 PM EDT): Due to highly elevated ULISES and progressive course of facial numbness on both sides since September 2017 and recent bilateral hands symptoms I offered her Plaquenil that is a slow acting disease modifying antirheumatic medication (DMARD) known to help with fatigue, arthralgias and modulating immunologic drive to reduce the frequency and severity of disease. After reviewing pamphlet on the side effects of Plaquenil she agreed to start it and tolerates it well. Daily sun protection strongly encouraged. Carefully continue gabapentin 800 mg nightly to reduce tingling, numbing and burning in her hands and allow to sleep. OT offered for splinting, assistive devices and gentle compression gloves to reduce swelling. She is interested in a 2nd opinion rheumatology consultation with Dr. Chucky Bundy MD at [facility] in [facility] who is focusing on holistic approach. She arranged for an appointment on 11/13/2018. Get yearly influenza vaccination by mid November 2018. Assessment & Plan (08/22/2018 11:27 PM EDT): Due to highly elevated ULISES and progressive course of facial numbness on both sides since September 2017 and recent bilateral hands symptoms I requested an additional set of labs today and provided her with literature on possible therapeutic options including Plaquenil that is a slow acting disease modifying antirheumatic medication (DMARD). I briefly reviewed most frequent side effects related to its administration including but not limited skin rash, stomach upset mild thinning, skin discoloration etc. I have explained to her that it takes usually 3-4 months for full effects. She is asked to get ophthalmologic checkup to make sure that there are no contraindications to take this medication and when ready to start carefully 1 tablet 200 mg daily x 7- 14 days and if no side effects increase to full dose 200 mg twice daily. Additionally to reduce the burning pain I may offer her a low dose of gabapentin-pamphlet on its side effects also provided today. Assessment & Plan (04/21/2018 10:43 AM EST): Due to highly elevated ULISES and progressive course of facial numbness on both sides since September 2017 I requested an additional set of labs to check for possible underlying systemic rheumatic disease such as scleroderma, mixed connective tissue disease, systemic lupus erythematosus, Sjogren's syndrome versus sarcoid. I explained to patient that early on in the course of the disease it may be difficult to answer which disease is she most likely sick with if any as it may evolve over time and I would be able to give her more definitive answer once results become available. Assuming that there are no additional abnormalities detected on the lab work ordered today and her clinical status remains stable I have asked her to return in 6 months. Facial numbness 04/18/2018 Assessment & Plan (12/20/2018 12:01 PM EDT): Monitor closely and follow with treating neurologist as scheduled Assessment & Plan (10/30/2018 2:12 PM EDT): Monitor closely and follow with treating neurologist as scheduled Carefully continue gabapentin as tolerated. Assessment & Plan (08/22/2018 11:29 PM EDT): Monitor closely and follow with treating neurologist as scheduled Assessment & Plan (04/21/2018 10:10 AM EST): Monitor closely and follow with treating neurologist as scheduled Tingling of face 04/18/2018 Assessment & Plan (04/21/2018 10:10 AM EST): Avoid prolonged cold exposure and temperature extremes. Optimize stress management strategies. Bilateral hearing loss 04/18/2018 Assessment & Plan (12/20/2018 12:01 PM EDT): Continue close follow-up with her ENT/audiology team. Avoid sick contacts, extreme noise Assessment & Plan (04/21/2018 10:09 AM EST): Continue close follow-up with her ENT/audiology team. Avoid sick contacts, extreme noise Vitamin D insufficiency 04/18/2018 Assessment & Plan (12/20/2018 12:02 PM EDT): Continue proper supplementation as instructed. Assessment & Plan (10/30/2018 1:58 PM EDT): Continue proper supplementation as instructed. Assessment & Plan (08/22/2018 11:28 PM EDT): Continue proper supplementation as instructed. Assessment & Plan (04/21/2018 10:08 AM EST): Serum level requested to make sure that she does not need any adjustment in dietary intake Immunizations Immunization Administration Dates Next Due Influenza Quadrivalent Preservative Free IM 10/29,01/03/2014 Influenza Recombinant Mohit valent Preservative Free IM 12/20/2018 Influenza Trivalent w/ Preservative IM 0,02/10/2009 Pneumococcal conjugate PCV13 03/12/2020 Tdap 11/26/2009 Zoster recombinant 03/24/2020,11/25/2019 Family History Medical History Relation Comments Colon cancer Father Colon cancer Mother Relation Status Comments Father Mother Social History Tobacco Use Types Packs/Day Years [...] on file Sexual Orientation Not on file Last Filed Vital Signs Vital Sign Reading Time Taken Comments Blood Pressure 108/76 06/30/2022 9:37 AM EDT Pulse 77 06/30/2022 9:41 AM EDT Temperature 36 C (96.8 F) 06/30/2022 8:17 AM EDT Respiratory Rate 14 06/30/2022 9:41 AM EDT Oxygen Saturation 99% 06/30/2022 9:37 AM EDT Inhaled Oxygen Concentration - - Weight 75.3 kg (166 lb) 06/29/2022 9:35 AM EDT Height 163.8 cm (5' 4.5 ) 06/29/2022 9:35 AM EDT Body Mass Index 28.05 06/29/2022 9:35 AM EDT Plan of Treatment Health Maintenance Due Date Last Done Comments LIPID PANEL 1961 DEPRESSION SCREENING 1973 HIV ONE-TIME SCREENING (18-65 YEARS) 1979 COLOGUARD 2006 FIT TEST 2006 FOBT 2006 SIGMOIDOSCOPY 2006 VIRTUAL COLONOSCOPY 2006 PNEUMOCOCCAL VACCINES (50+ years) (2 of 2 - PPSV23) 05/07/2020 03/12/2020 RSV VACCINE (1 - Risk 60-74 years 1-dose series) 2021 MAMMOGRAM 03/10/2023 03/10/2021, 0107/2019, 02/01/2019, Additional history exists COVID-19 VACCINE ( - season) 2023 12/13/2021, 12/13/2021, 06/01/2021, Additional history exists SCREENING FOR DIABETES 02/16/2024 02/15/2021 Adult Td,Tdap Booster 11/17/2024 11/17/2014, 010 PAP SMEAR 05/16/2025 05/16/2022, 02/27, 08/24/2017 COLONOSCOPY 06/30/2032 06/30/2022 COLORECTAL CANCER SCREENING 06/30/2032 HEPATITIS C SCREENING Completed 04/20/2018 ZOSTER VACCINES Completed 03/24/2020, 11/25/2019 SMOKING STATUS SCREENING (Once After 26 Yrs) Completed 06/30/2022 HEPATITIS A VACCINES Aged Out No long er eligible based on patient's age to complete this topic HIB VACCINES Aged Out No longer eligi ble based on patient's age to complete this topic MENINGOCOCCAL VACCINES (ACWY) Aged Out No longer eligible based on patient's age to complete this topic MENINGOCOCCAL VACCINES (B) Aged Out N o longer eligible based on patient's age to complete this topic Medical Devices Implanted Type Area Armor Reconnaissance Vehicle Driver Device Identifier Shelf Expiration Date Model / Serial / Lot Marker Site Biopsy Stainless Steel [id number]/[id number] - [id number] Implanted:Qty: 1 on 04/09/2019 by Tanmay Zimmer MD at [facility] Right: Breast [employer] [id number] / / Procedures Procedure Name Priority Date/Time Associated Diagnosis Comments ENDOSCOPY, COLON 06/30/2022 8:58 AM EDT PAP TEST Routine 05/16/2022 12:00 AM EDT BI MAMMOGRAM DIAGNOSTIC WITH TOMOSYNTHESIS WITH CAD (BILATERAL) Routine 03/10/2021 11:14 AM EST Other specified disorders of breast HEPATITIS C ANTIBODY, QUALITATIVE Routine 04/20/2018 8:59 AM EST ULISES positive Facial numbness Tingling of face Bilateral hearing loss, unspecified hearing loss type from Last 3 Months or Most Recently Relevant to Health Maintenance Results * ENDOSCOPY, COLON (06/30/2022 8:58 AM EDT) Narrative Transcriptions Tabatha Bruno MD - 06/30/2022 8:58 AM EDT [facility] Patient Name: Caroline Cabrera Attending MD:: TABATHA BRUNO MD, Procedure Date: 06/30/2022 8:58 AM Date of : 1960 Age: 62 Admit Type: Outpatient Gender: Female Room: [place] [address] Referring MD: Nando Hanks MD Exam Type: Colonoscopy Indications: Screening in patient at increased risk: Colorectal cancer in mother 60 or older, Screening in patientat increased risk: Colorectal cancer in father 60 or older, (M @65, F@ 68) Last colonoscopy: January2019 Medications: Propofol per Anesthesia Procedure: Informed consent was obtained from the patientafter discussion of the indications, limitations, alternatives, benefits, and risks of the procedure. Risks specifically discussed include but are not limited to medication reactions, missed lesions, bleeding, perforation, or the need for emergent surgery. Throughout the procedure, the patient's blood pressure, pulse, end-tidal CO2, and oxygensaturations were monitored continuously. The Olympus adult variable colonoscope [id number] #[id number] was introduced through the anus and advanced to the terminal ileum, with identification of theappendiceal orifice and IC valve. The terminal ileum, ileocecal valve, appendiceal orifice, and rectum were photographed. The colonoscopy was performed without difficulty. The patient tolerated the procedurewell. The quality of the bowel preparation was excellent. The bowel preparation used was GoLYTELY via splitdose instruction. Complications: No immediate complications. Estimated blood loss:None. Findings: The digital rectal exam was normal. Pertinent negatives include no palpable rectal lesions. Hemorrhoids were found on perianal exam. A few medium-mouthed diverticula were found in the ascending colon. The entire examined colon appeared otherwise normalon direct and retroflexion views. The terminal ileum appeared normal. Retroflexion in the right colon was performed. Impression: - Hemorrhoids found on perianal exam. - The entire examined colon is normal on direct and retroflexion views. - The examined portion of the ileum was normal. - No specimens collected. Recommendation: - Repeat colonoscopy in 3 years for screeningpurposes. TABATHA BRUNO MD 06/30/2022 9:29:31 AM This report has been signed electronically. Number of Addenda: 0 Note Initiated On: 06/30/2022 8:58 AM Procedure Code(s): --- Professional --- 02934, Colonoscopy, flexible; diagnostic, including collection of specimen(s) by brushing or washing, when performed (separateprocedure) --- Technical --- 15202, Colonoscopy, flexible; diagnostic, including collection of specimen(s) by brushing or washing, when performed (separateprocedure) Diagnosis Code(s): --- Professional --- K64.9, Unspecified hemorrhoids Z80.0, Family history of malignant neoplasm of digestive organs --- Technical --- K64.9, Unspecified hemorrhoids Z80.0, Family history of malignant neoplasm of digestive organs CPT copyright 2021 [employer]. All rights reserved. The codes documented in this report are preliminary and upon victims advocate clerk/specialist reviewmay be revised to meet current compliance requirements. Procedure Date: 06/30/2022 8:58:[address] [place] [id number] Nando Hanks MD GI PROCEDURE ORDER MARGARET Final Result * Pap Test (05/16/2022 12:00 AM EDT) 05/16/2022 05/17/2022 9:1 9 AM EDT Narrative SEE NARRATIVE - 05/19/2022 11:12 AM EDT [address] [address] [place] Collector: Caroline Hamilton MD SENIOR COUNSEL [employer] Cytology Report FINAL DIAGNOSIS A. PAP SMEAR (SUREPATH) CE: SPECIMEN ADEQUACY: Satisfactory for evaluation; transformation zone present. Evaluation limited by scant cellularity. INTERPRETATION: NEGATIVE FOR INTRAEPITHELIAL LESION OR MALIGNANCY. Electronically Signed Out By: CHRISTIANO Dial(ASCP) CHRISTIANO Wheeler(ASCP) The Pap test is a screening test primarily for squamous cancers and precursors and has associated false-negative and false-positive results. New technologies such as liquid-based preparations may decrease but will not eliminate all false-negative results. Regular sampling and follow-up of unexplained clinical signs and symptoms are recommended to minimize false negative results. PROCEDURES/ADDENDA HPV Testing (Requested) Ordered Date: 05/17/2022 A. PAP SMEAR (SUREPATH) CE: Human Papilloma Virus Test NEGATIVE for high-risk Human Papilloma Virus types 16, 18, 45 and the Other high risk probe set (Includes 31, 33, 35, 39, 51, 52, 56, 58, 59, 66, 68) Note: Testing performed by [employer] Onclarity HR-HPV analysis. Clinical correlation is advised. This HPV test was performed at [facility], [address] [place] [address]. This test has been FDA approved for SurePath cervical cytology specimens. The accuracy and precision of this test for all other specimen sources has been verified in the Cytopathology Laboratory of the [facility] and has not been cleared or approved by the U.S. Food and Drug Administration. Clinical correlation is advised. CLINICAL HISTORY Date of Last Menstrual Period: AGED 51 Menstrual History: Post Menopausal Other Clinical Conditions: Screening Pap Previous Unsatisfactory SPECIMEN SOURCE A: PAP SMEAR (SUREPATH) CE Patient Name: CAROLINE CABRERA : 1960 (Age: 62) Sex: F Institution: [facility] Location: [facility] Date of Collection: 05/16/2022 Date of Reported: 05/19/2022 11:12 Results to: Nando Hanks us Nando Hanks MD CYTOLOGY ORDERABLE S Final Result SEE NARRATIVE * BI MAMMOGRAM DIAGNOSTIC WITH TOMOSYNTHESIS WITH CAD (BILATERAL) (03/10/2021 11:14 AM EST) Anatomical Region Laterality Modality Breast Left, Breast Right, Breast Bilateral Bila teral Mammography 03/10/2021 11:2 2 AM EST Impressions 03/10/2021 11:31 AM EST No mammographic evidence of malignancy. Recommend return to routine annual surveillance. Findings relayed to the patient via the technologist. BI-RADS CATEGORY: 2 - Benign finding. DENSITY: The breast tissue is heterogeneously dense, which could obscure a lesion on mammography. LEFT RECOMMENDATION DUE DATE: 12 Months Left Mammography Screening RIGHT RECOMMENDATION DUE DATE: 12 Months Right Mammography Screening Narrative 03/10/2021 11:31 AM EST 60-year-old female who presents for diagnostic mammography for follow-up prior right breast stereotactic biopsies. No history of breast malignancy. Comparison made to previous on 04/09/2019 and as far back as 04/15/2009. Interpretation made in conjunction with computer-aided detection and tomosynthesis. Standard views obtained. The breasts are heterogeneously dense, which may obscure small masses. Stable right breast scarring, biopsy marker and bilateral microcalcifications right greater than left. No new mass, distortion or cluster of microcalcifications. Procedure Note Javad Greenberg MD - 03/10/2021 60-year-old female who presents for diagnostic mammography for follow-upprior right breast stereotactic biopsies. No history of breast malignancy.Comparison made to previous on 04/09/2019 and as far back as 04/15/2009.Interpretation made in conjunction with computer-aided detection andtomosynthesis. Standard views obtained. The breasts are heterogeneously dense, which mayobscure small masses. Stable right breast scarring, biopsy marker andbilateral microcalcifications right greater than left. No new mass,distortion or cluster of microcalcifications. IMPRESSION: No mammographic evidence of malignancy. Recommend return to routineannual surveillance. Findings relayed to the patient via thetechnologist. BI-RADS CATEGORY: 2 - Benign finding. DENSITY: The breast tissue is heterogeneously dense, which could obscurea lesion on mammography. LEFT RECOMMENDATION DUE DATE: 12 Months Left Mammography Screening RIGHT RECOMMENDATION DUE DATE: 12 Months Right Mammography Screening Naa Rico NP IMG MG EXAMS Final Result * Hepatitis C antibody, qualitative (04/20/2018 8:59 AM EST) HCV Negative Negative [facility] Comment: This is a screening test and should be confirmed with molecular testing Blood 04/20/2018 8:59 AM EST 04/20/2018 9:17 AM EST Jody Quiroz MD LAB BLOOD ORDERABLES Fin al Result [facility] [address] [place] [address] from Last 3 Months or Most Recently Relevant to Health Maintenance Insurance [place] PPO BLUE REPLACEMENT [facility] MEDICARE PPO BLUE REPLACEMENT [facility] MEDICARE PPO BLUE REPLACEMENT [facility] MEDICARE PPO BLUE REPLACEMENT [facility] MEDICARE PPO BLUE REPLACEMENT [facility] MEDICARE PPO BLUE REPLACEMENT [facility] MEDICARE PPO BLUE [place]AC[place] [address] [place] [address] MEDICARE PPO BLUE REPLACEMENT Care Teams Sequins Stringer Relationship Specialty Start Date End Date Nando Del Rosario MD [address] [place] [phone] [email or web address] PCP - General 12/12/16 Juarez Ziegler MD [address] [place] [address] [email or web address] PCP - Hematology/Oncology Medical Oncology 05/31/19 Additional Source Comments The information contained in this document represents components of the legal health record. It is not the complete legal health record.[facility]
--- OUTSIDE RECORDS SUMMARY | 2024-09-20 12:33 | XMS_ITS | Data Portability ---
Author Organization [place] - 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, left ear; Note: Date Diagnosed : 10/19/2017 1:38 PM (H83.02) Not Available [facility] 4 03:09:30 Epidemic vertigo 884821278 Active 2017 Vestibula r neuroniti s, left ear; Note: Date Diagnosed : 10/19/2017 1:38 PM (H81.22) Not Available [facility] 4 03:09:29 Sensorine ural hearing loss of bilateral ears 964061399 Active 2017 Sensorine ural hearing loss, bilateral ; Note: Date Diagnosed : 10/19/2017 1:18 PM (H90.3) Not Available [facility] 4 03:09:30 Tinnitus of left ear 95800960012 06 Active 2017 Tinnitus, left ear; Note: Date Diagnosed : 10/19/2017 1:18 PM (H93.12) Not Available [facility] 4 03:09:29 Paresthes ia 59266105 Active 2017 Paresthes ia of skin; Note: Date Diagnosed : 8 2:51 PM (R20.2) Not Available [facility] 03:09:31 Dysphonia 71186520 Active 2023 KATHRIN AVILA MD 100 [facility],[place] [address], [place], [address] , [facility] 4 15:21:20 Problem Notes None recorded. Procedures Surgical History Date Name Laterality Status Provider Name and Address Organization Details Recorded Time 11/14/19 24 Fiberoptic Laryngoscopy (Comprehensive) completed KATHRIN AVILA MD [facility], [place], [address], [facility] 11/14/2023 15:21:15 Imaging Results None recorded. Procedure Notes None recorded. Medical Equipment None Reported. Allergies No known drug allergies Medications Name Sig Start Date Stop Date Status Note LastModified by Organization Details LastModified Time trazodone 50 mg tablet active Medicati on ID: [id number] B rand Name: trazodon e Send Method: [...] as needed 09/23 completed Medicati on ID: [id number] B rand Name: meclizin e Send Method: E-Prescr ibed Sub s Allowed: subs OK Medic ationGen ericName : meclizin e Not Available Not Available Not Available methotrex ate sodium 2.5 mg tablet 11/13 completed Medicati on ID: [id number] B rand Name: methotre xate sodium S end Method: E-Prescr ibed Sub s Allowed: subs OK Medic ationGen ericName : methotre xate sodium Not Available Not Available Not Available cevimelin e 30 mg capsule active Medicati on ID: [id number] B rand Name: cevimeli ne Send Method: [...] Updated DateTime 11/14/2023 162.56 cm 26.3 kg/m2 28460.63 g Caroline Roger [place] - [facility] 11/14/2023 14:45:15 Social History None recorded. Functional Status None recorded. Mental Status None recorded. Family History Nothing Reported. Medical History No medical history recorded. Gynecological HistoryNo gynecological history recorded. Obstetrics History GPAL:G 0 P 0 0 0 0 Past Encounters Encounter ID Performer Location Encounter Start Date Encounter Closed Date Diagnosis/Indication Diagnosis SNOMED-CT Code Diagnosis ICD10 Code Diagnosis Note [id number] KATHRIN AVILA MD [facility] on [address] [place] [address] 11/14/2023 14:40:44 11/14/2023 16:19:00 Dysphonia [id number] R49.9 Health Concerns Section Related Observation LastModified by Organization Detai ls LastModified Time None Recorded Concern Status LastModified by Organization Details LastModified Time None Recorded Advance Directives Directive None Recorded Payers Insurance Date Sequence Insurance Name Policy Number Policy Payan Covered Member ID Payan Member ID Guarantor Name 11/20/2023 1 [facility]: MEDICARE PPO BLUE (MEDICARE REPLACEMENT PPO) [id number] [facility] House Deborah [id number] [facility] Deborah Notes Date Note Type Note Provider Name and Address Organization Details Recorded Time 11/14/2023 text/html ROS as noted in the HPI 63 yo F with a history of sjogren's, dx 4 years ago.New dx [...] use voice a lot. KATHRIN AVILA MD [address] [place] [address], [phone] - [facility] 11/20/2023 09:58:14 OBGyn Episode No OBEpisode recorded.
[2024-09-20 12:48] LABS: MANUAL DIFF FLAG NO
[2024-09-20 13:19] LABS: Hematocrit 32.9 % (37.0-47.0); Hemoglobin 10.8 g/dl (12.0-16.0); Imm Gran Abs Auto 0.01 X10*3/uL (0.00-0.03); Imm Gran Pct Auto 0.2 % (0.0-0.4); Lymphocytes Absolute Auto 1.6 X10*3/uL (1.2-4.9); Mean Corpuscular HGB Conc 32.8 g/dl (31.0-35.0); Mean Corpuscular Hemoglobin 31.2 pg (27.0-33.0); Mean Corpuscular Volume 95.1 fL (80.0-98.0); NRBC Abs Auto 0.000 X10*3/uL (0.0-0.012); NRBC Pct Auto 0.0 /100WBC (0.0-0.2); Platelet Count 272 X10*3/uL (160-400); Red Blood Count 3.46 X10*6/uL (4.20-5.50); White Blood Count 4.9 X10*3/uL (4.8-10.8)
[2024-09-20 13:34] LABS: Appearance Urine Clear; Glucose Urine UA Negative (Negative); PH 6.0 (5.0-9.0); Specific Gravity - Urine >= 1.030 (1.005-1.025); UMIC TRIGGER UA YES
[2024-09-20 13:50] LABS: Alanine Aminotransferase 25 U/L (0-31); Albumin Level 4.1 g/dL (3.5-5.0); Alkaline Phosphatase 64 U/L (39-117); Anion Gap 12 (12-20); Aspartate Amino Transferase 33 U/L (5-31); Blood Urea Nitrogen 18 mg/dL (9-16); Calcium 9.1 mg/dL (8.4-10.2); Carbon Dioxide 26 mmol/L (22-29); Chloride 108 mmol/L (96-108); Estimated Glomerular Filt Rate 47; Potassium 4.2 mmol/L (3.3-5.1); Sodium 142 mmol/L (135-145); Total Protein 6.8 g/dL (6.5-8.0)
[2024-09-20 14:28] LABS: Protein/Creatinine Ratio, Ur 0.06 (<0.2); Total Protein Urine Random 14 mg/dL (<12)
[2024-09-23 22:39] LABS: Prot Elec - Albumin 3.9 g/dL (3.8-4.8); Prot Elec - Alpha1 0.3 g/dL (0.2-0.3); Prot Elec - Alpha2 0.6 g/dL (0.5-0.9); Prot Elec - Beta 1 0.4 g/dL (0.4-0.6); Prot Elec - Beta 2 0.3 g/dL (0.2-0.5); Prot Elec - Gamma 1.0 g/dL (0.8-1.7); Prot Elec - Total Protein 6.4 g/dL (6.1-8.1)
== END 2024-09-20 12:32 | disposition home or self-care (01) ==
LOC: HO.LAB 12:31
PROVIDERS: PCP Family Medicine; Visit Provider Student in an Organized Health Care Education/Training Program
DX: M35.1 Other overlap syndromes (principal)
CPT/HCPCS: 36415; 80053; 81001; 82306; 82570; 82784; 84156; 84165; 85025; 85652; 86140; 86160; 86225; 86334; 86431

== ENCOUNTER 2024-10-01 08:03 | Outpatient (AMB) | payer MEDICARE, SELFPAY ==
--- OUTSIDE RECORDS SUMMARY | 2024-10-01 08:06 | XMS_ITS | Clinical Summary ---
Author Organization [facility] Address [address] [facility] [address] [place] [address] Phone Care Team Providers Care Student Activities Director Name Role Phone Nando Del Rosario MD Primary Care Prov ider Juarez Ziegler MD Unavailable [phone] Allergies Active Allergy Reactions Criticality Noted Date Comments Other 04/18/2018 Seasonal allergies Medications traZODone (DESYREL) 50 MG tabletIndications :takes about 2 times a month Take 50 mg by mouth nightly at bedtime as needed. Active omega 4-xyk-fmq-fish oil 1,000 mg (120 mg-180 mg) Cap [...] PM EST): Take exactly as prescribed. See sewing machine assembler regularly at least every 6-12 months. Daily [...] consultation with Dr. Chucky Bundy MD at [facility] in [facility] who is focusing on holistic approach. [...] this topic Medical Devices Implanted Type Area Supervisor Cereal Device Identifier Shelf Expiration Date Model / Serial / Lot Marker Site Biopsy Stainless Steel Bx/[id number] - [id number] Implanted:Qty: 1 on 04/09/2019 by Tanmay Zimmer MD at [facility] Right: Breast [employer] [id number] S1 / / Procedures Procedure [...] Bruno MD - 06/30/2022 8:58 AM EDT [facility] Patient Name: Caroline Cabrera Attending MD:: TABATHA BRUNO MD, Procedure Date: 06/30/2022 8:58 AM Date of : 1960 Age: 62 Admit Type: Outpatient Gender: Female Room: [place] [address] Referring MD: Nando Hanks MD Exam Type: [...] monitored continuously. The Olympus adult variable colonoscope [id number] #1 was introduced through the anus and [...] 8:58 AM Procedure Code(s): --- Professional --- 82725, Colonoscopy, flexible; diagnostic, including collection of specimen(s) by brushing or washing, when performed (separateprocedure) --- Technical --- 96492, Colonoscopy, flexible; diagnostic, including collection of specimen(s) by brushing or washing, when performed (separateprocedure) Diagnosis Code(s): --- Professional --- K64.9, Unspecified hemorrhoids Z80.0, Family history of malignant neoplasm of digestive organs --- Technical --- K64.9, Unspecified hemorrhoids Z80.0, Family history of malignant neoplasm of digestive organs CPT copyright 2021 [employer]. All rights reserved. The codes documented in this report are preliminary and upon child care coordinator reviewmay be revised to meet current compliance requirements. Procedure Date: 06/30/2022 8:58:[address] [place] [id number] Nando Hanks MD GI PROCEDURE ORDER MARGARET Final Result * Pap Test (05/16/2022 12:00 AM EDT) 05/16/2022 05/17/2022 9:1 9 AM EDT Narrative SEE NARRATIVE - 05/19/2022 11:12 AM EDT [address] [address] Ultra Sound Technician: Caroline Hamilton MD PENOLOGY TEACHER Cytology Report FINAL DIAGNOSIS A. PAP SMEAR [...] 59, 66, 68) Note: Testing performed by [facility] On[facility] HR-HPV analysis. Clinical correlation is advised. This HPV test was performed at [facility], [address] [place] [address]. This test has been FDA approved for [facility] cervical cytology specimens. The accuracy and precision of this test for all other specimen sources has been verified in the Cytopathology Laboratory of the [facility] and has not been cleared or approved by the U.S. Food and Drug Administration. Clinical correlation is advised. CLINICAL HISTORY Date of Last Menstrual Period: AGED 51 Menstrual History: Post Menopausal Other Clinical Conditions: Screening Pap Previous Unsatisfactory SPECIMEN SOURCE A: PAP SMEAR (SUREPATH) CE Patient Name: CAROLINE CABRERA : 1960 (Age: 62) Sex: F Institution: [facility] Location: [facility] Date of Collection: 05/16/2022 Date [...] (04/20/2018 8:59 AM EST) HCV Negative Negative [facility] Comment: This is a screening test and should be confirmed with molecular testing Blood 04/20/2018 8:59 AM EST 04/20/2018 9:17 AM EST Jody Quiroz MD LAB BLOOD ORDERABLES Fin al Result [facility] [address] [place] [address] from Last 3 Months or Most Recently Relevant to Health Maintenance Insurance [place] MEDICARE PPO BLUE REPLACEMENT [facility] MEDICARE PPO BLUE REPLACEMENT [facility] MEDICARE PPO BLUE REPLACEMENT [facility] MEDICARE PPO BLUE REPLACEMENT [facility] MEDICARE PPO BLUE REPLACEMENT [facility] MEDICARE PPO BLUE REPLACEMENT [facility] MEDICARE PPO BLUE REPLACEMENT [address] [place] [address] MEDICARE PPO BLUE REPLACEMENT Care Teams Student Activities Director Relationship Specialty Start Date End Date Nando Del Rosario MD [address] [place] [phone] [email or web address] PCP - General 12/12/16 Juarez Ziegler MD [address] [place] [address] [email or web address] PCP - Hematology/Oncology Medical Oncology 05/31/19 Additional Source Comments The information contained in this document represents components of the legal health record. It is not the complete legal health record.[facility]
--- NOTE | 2024-10-01 08:20 | A.OFFVIS_ITS ---
Vital Signs 10/01/24 08:26 Height 5 ft 4 in Weight 122 lb 8 oz BMI 21.0 BP 115/62 Blood Pressure Location Lt brachial Position Sitting Pulse 93 Pulse Source Pulse Oximeter Pulse Oximetry (%) 99 Intake Visit Reasons: SLE Intake Note: Patient presents for SLE follow up. Allergies No Known Allergies Allergy (Verified 10/01/24 08:25) HPI Comments Details: Patient is a 64-year-old female with overlap syndrome (MCTD/Sjogren's/SLE) who presents today for follow up. 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 DC 01/2023 Benlysta infusions 04/2023 effective. Switched to SC 01/2024 due to insurance issues. effective Right great saphenous vein official thrombophlebitis 05/2023. I prescribed Eliquis for 3 months. Repeat venous duplex was negative. Patient is now using compression stockings + lupus anticoagulant Current Rheumatology Medication(s): Benlysta 200 mg sc every week Plaquenil 400 mg 6 days a week and 200 mg 1 day a week Gabapentin 600mg COUNTS INCLUDE 234 BEDS AT THE [facility] Medical History Pulmonary nodule Lymphadenopathy Transaminitis Palpitations Ovarian cyst Hearing loss Surgical History Hx of knee surgery Hx of tonsillectomy Family History Maternal Grandmother Raynaud disease Osteoarthritis Sister Rheumatoid arthritis Mother Colon cancer Father Congestive heart failure Social History Alcohol intake: current Alcohol intake frequency: other Patient Tobacco Use Status: Former Tobacco user e-Cigarette/Vaping Use: Never Used Review of Systems Const Details: Review of Systems Constitutional: Denies fever, chills, weight loss ENT: Denies vision changes, eye pain or eye redness, dental caries GI: Denies nausea, vomiting, diarrhea, abdominal pain, change in BM Pulm: Denies SOB, BISWAS, hemoptysis Cards: Denies chest pain, palpitations Skin: Denies Raynaud's, rash, nail changes, photosensitivity, PATIENT ASSESSMENT COORDINATOR: Denies headaches, weakness, paresthesias, recurrent falls MSK: as per HPI All other systems reviewed and are unremarkable except noted above Physical Exam Exam Exam: Vital signs reviewed Physical Examination CONSTITUITIONAL Patient alert and cooperative. Well appearing and in no apparent painful distress HEENT Conjunctiva and sclera clear. No lymphadenopathy. CHEST/RESPIRATORY SYSTEM Normal respiratory effort and able to speak in complete sentences. Clear to auscultation bilaterally. No crackles, rales, rhonchi, wheezes heard. CARDIAC SYSTEM Regular rate and rhythm. S1 and S2 heard no murmurs. Radial pulses intact bilaterally MSK Hands * Right Hand: Able to make a fist. No swelling or tenderness to palpation of these joints. No deformities noted. * Left Hand: Able to make a fist. No swelling or tenderness to palpation of these joints. No deformities noted. Wrists * Right Wrist: Full ROM. 70 degrees of wrist flexion, 80 degrees of wrist extension. No swelling or TTP * Left Wrist: Full ROM. 70 degrees of wrist flexion, 80 degrees of wrist extension. No swelling or TTP Elbows * Right Elbow: Full ROM. No swelling or TTP. No TTP of the medial and lateral epicondyles * Left Elbow: Full ROM. No swelling or TTP. No TTP of the medial and lateral epicondyles Shoulders * Right shoulder: Full ROM. No swelling noted. No TTP of the AC joint, subacromial bursa or posterior shoulder * Left shoulder: Full ROM. No swelling noted. No TTP of the AC joint, subacromial bursa or posterior shoulder Knees * Right knee: Full ROM. No swelling noted. No TTP of the knee joint lie or pes anserine bursa * Left knee: Full ROM. No swelling noted. No TTP of the knee joint lie or pes anserine bursa. Ankles * Right ankle: Good ankle dorsiflexion and plantar flexion. No swelling. No TTP of the ankle joint * Left ankle: Good ankle dorsiflexion and plantar flexion. No swelling. No TTP of the ankle joint Feet * Right foot: Negative squeeze test * Left foot: Negative squeeze test Tender points? * No tenderness to palpation of the bilateral trapezius, supraspinatus, anterior costochondral junctions, bilateral suboccipital muscle insertions SKIN No rashes Vital Signs: Last Vital Signs Pulse 93 10/01/24 08:26 BP 115/62 10/01/24 08:26 Pulse Ox 99 10/01/24 08:26 BMI result Body Mass Index 21.0 Results Reviewed Results Reviewed: Laboratory Tests 09/20/24 12:47 WBC 4.9 RBC 3.46 L Hgb 10.8 L Hct 32.9 L Plt Count 272 ESR 22 H Sodium 142 Potassium 4.2 Chloride 108 Carbon Dioxide 26 BUN 18 H Creatinine 1.17 AST 33 H ALT 25 Alkaline Phosphatase 64 C-Reactive Protein 0.32 25-OH Vitamin D Total 91.2 SPEP Normal Laboratory Tests 09/20/24 12:47 Rheumatoid Factor < 13.0 Double Strand DNA Ab 2 Complement C3 85 Complement C4 19 Laboratory Tests 07/27/22 12:25 U1 snRNA A Antibody 19 H SM/INTERLOCKING INSTALLER IgG Antibody >8.0 POS A Assessment & Plan Assessment & Plan (1) Mixed connective tissue disease: Comment: dx 2016 (Raynaud's, arthralgias, dry eye under states this, dry mouth, fatigue, +++ 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 DC 01/2023 Benlysta infusions 04/2023 - 01/2024. INsurance issues Benlysta SC 01/2024. effective Code(s): M35.1 - Other overlap syndromes Category: Medical Plan: #MCTD/Lupus Patient is a 64-year-old female with mixed connective tissue disease/lupus here today for follow up. Patient is currently in remission. Complement normalized Persistent anemia. Will need to check iron studies at next visit. Mildly elevated AST but this is likelt 2/2 to her recent viral illness Plan - Continue Benlysta 200mg SC every week - Continue plaquenil 400mg 6 days a week and 200mg 1 day a week - Continue gabapentin 600mg nightly - RTC 4 months - Labs before visit: CBC, CMP, ESR, CRP, C3, C4, dsDNA, UA, UPC, iron srudies (2) Sjogren syndrome with keratoconjunctivitis: Code(s): M35.01 - Sjogren syndrome with keratoconjunctivitis Category: Medical Plan: #Sjogren's Syndrome Patient currently on cyclosporine eyedrops. Cevimeline was minimally helpful and caused nocturnal incontinence and so this was stopped Plan - Continue to follow with Ophthalmology - Continue Biotene mouthwash and other conservative measures (3) Long-term use of hydroxychloroquine: Comment: Eye exam 10/2023 ok Code(s): Z79.899 - Other intermediate teacher (current) drug therapy Category: Medical Plan: #Long-term Use of Hydroxychloroquine Discussed with patient the risks and benefits of hydroxychloroquine in managing the rheumatic condition Benefits include: - Reduced pain, reduce mortality, maintenance of remission and reduction of flares Risks include: - GI upset, skin hyperpigmentation, retinal toxicity (especially after more than 5 years of use), myopathy Advised yearly ophthalmology visits Last ophthalmology visit: 10/2023 (4) Encounter for monitoring of belimumab therapy: Code(s): Z51.81 - Encounter for therapeutic drug level monitoring; Z79.620 - assisted (current) use of immunosuppressive biologic Plan: #tank terminal gauger Belimumab Discussed with patient the risks and benefits of hydroxychloroquine in managing the rheumatic condition Benefits include: - Reduced pain, reduce mortality, maintenance of remission and reduction of flares Risks include: - insomnia, injection site reactions, psychiatric events such as worsening depression/anxiety or suicidal ideation, increased risk of infection Plan I spent 30 minutes reviewing the record and labs, taking a history, examining the patient, discussing the treatment plan, ordering diagnostic work up and documenting in the medical record Coding Level of Care Code Est Pt Level 4 (15384) Complex EM visit Add On G2211 Diagnoses Mixed connective tissue disease M35.1 Sjogren syndrome with keratoconjunctivitis M35.01 Long-term use of hydroxychloroquine Z79.899 Encounter for monitoring of belimumab therapy Z51.81; Z79.620
[2024-10-01 08:26] VITALS: BP 115/62; PULSE 93; O2SAT 99; BMI 21.0
== END 2024-10-01 09:04 | disposition home or self-care (01) ==
PROVIDERS: PCP Family Medicine; Visit Provider Student in an Organized Health Care Education/Training Program
DX: M35.1 Other overlap syndromes (principal); M35.01 Sjogren syndrome with keratoconjunctivitis; Z79.899 Other long term (current) drug therapy; Z51.81 Encounter for therapeutic drug level monitoring; Z79.620 Long term (current) use of immunosuppressive biologic
CPT/HCPCS: 99214; G2211

== ENCOUNTER → 2024-10-01 08:03 | Outpatient (BNVA) | payer MEDICARE, SELFPAY | PROVIDERS: PCP Family Medicine; Visit Provider Student in an Organized Health Care Education/Training Program | DX: M35.1 Other overlap syndromes (principal); M32.9 Systemic lupus erythematosus, unspecified; M35.01 Sjogren syndrome with keratoconjunctivitis; Z51.81 Encounter for therapeutic drug level monitoring; Z79.620 Long term (current) use of immunosuppressive biologic; Z79.899 Other long term (current) drug therapy | CPT/HCPCS: 99212 ==

== ENCOUNTER 2024-12-18 08:57 | Outpatient (REF) | payer MEDICARE, SELFPAY ==
--- OUTSIDE RECORDS SUMMARY | 2009-04-15 01:00 | XMS_ITS | Encounter Summary ---
Author Organization [facility] Address [address] [facility] [address] [place] [phone] Phone Care Team Providers Care Technology Director Name Role Phone Unavailable Primary Care Provider Unavailabl e Encounter Details Date Type Department Care Team (Late st Contact Info) Description 04/15/2009 Hospital Encounter [facility],Outside Imaging [address] [place], [place] [phone] System, Provider [place] In, [place] [address] Social History Tobacco Use Types Packs/Day Years [...] on file documented as of this encounter Functional Status documented as of this encounter Plan of [...] It is not the complete legal health record.[facility]
--- OUTSIDE RECORDS SUMMARY | 2012-06-29 | XMS_ITS | Encounter Summary ---
Author Organization [facility] Address [address] [facility] [address] [place] [phone] Phone Care Team Providers Care Pattern Vault Clerk Name Role Phone Unavailable Primary Care Provider Unavailabl e Encounter Details Date Type Department Care Team (Late st Contact Info) Description 06/29/2012 Hospital Encounter [facility],Outside Imaging [address] [place], [place] [phone] System, Provider [place] In, [place] [address] Social History Tobacco Use Types Packs/Day Years [...] It is not the complete legal health record.[facility]
--- NOTE | 2024-12-18 09:04 | PFT_ITS ---
Indication: Pulmonary nodule Spirometry FEV1 to FVC 82%; FEV1 2.36 L; FVC 2.88 L. There is a significant response to bronchodilators noted. Lung Volumes Total lung capacity 97% predicted; residual volume 118% predicted Diffusion Capacity DLCO 93% predicted Comparisons None Interpretation No obstructive nor restrictive ventilatory defects identified. The patient did have a significant response to bronchodilators noted. Lung volumes demonstrate a trend of air trapping and the diffusing capacity is within normal limits. Clinical correlation warranted. MTDD
[2024-12-18 09:42] VITALS: PULSE 83; O2SAT 99
--- OUTSIDE RECORDS SUMMARY | 2024-12-18 09:54 | XMS_ITS | Encounter Summary ---
Author Organization [facility] Address [address] [facility] [address] [place] [address] Phone Care Team Providers Care Control Room Supervisor Name Role Phone Nando Del Rosario MD Primary Care Prov ider Juarez Ziegler MD Unavailable [phone] Encounter Details Date Type Department Care Team (Late st Contact Info) Description 06/30/2022 Procedure Pass [facility] Endoscopy Admitting Dept Virtual Department [address] [place] [address] Social History Tobacco Use Types Packs/Day Years [...] on file 06/24/2022 No 06/24/2022 No 06/24/2022 Intimate Partner Violence Answer Date R ecorded [...] on file documented as of this encounter Visit Diagnoses Not on filedocumented in this encounter Care Teams Control Room Supervisor Relationship Specialty Start Date End Date Nando Del Rosario MD [address] [place] [phone] [email or web address] PCP - General 12/12/16 Juarez Ziegler MD [address] [place] [address] [email or web address] PCP - Hematology/Oncology Medical Oncology 05/31/19 documented as of this encounter Additional Source Comments The information contained in this document represents components of the legal health record. It is not the complete legal health record.[facility]
--- OUTSIDE RECORDS SUMMARY | 2024-12-18 09:54 | XMS_ITS | Encounter Summary ---
Author Organization [facility] Address [address] [place] [address] [place] [address] Phone Care Team Providers Care Local Sales Manager Name Role Phone Nando Del Rosario MD Primary Care Prov ider Juarez Ziegler MD Unavailable [phone] Encounter Details Date Type Department Care Team (Late st Contact Info) Description 01/08/2021 Procedure Pass [facility], [facility] [address] [place] [address] Social History Tobacco Use Types Packs/Day Years Used Date Smoking Tobacco: Never Smokeless Tobacco: Never Alcohol Use Standard Drinks/Week Comments Yes 0 (1 standard drink = 0.6 oz pur e alcohol) very rare Comments No Sex and Gender Information Value Date Recorded Sex Assigned at Not on file Legal Sex Female 9:46 PM EDT Gender Identity Not on file Sexual Orientation Not on file documented as of this encounter Plan of Treatment Not on file documented as of this encounter Visit Diagnoses Not on filedocumented in this encounter Care Teams Local Sales Manager Relationship Specialty Start Date End Date Nando Del Rosario MD [address] [place] [address] [email or web address] PCP - General 12/12/16 Juarez Ziegler MD [address] [place] [address] [email or web address] PCP - Hematology/Oncology Medical Oncology 05/31/19 documented as of this encounter Additional Source Comments The information contained in this document represents components of the legal health record. It is not the complete legal health record.[facility]
--- OUTSIDE RECORDS SUMMARY | 2024-12-18 09:54 | XMS_ITS | Encounter Summary ---
Author Organization [facility] Address [address] [facility] [address] [place] [address] Phone Care Team Providers Care Floor Helper Name Role Phone Nando Del Rosario MD Primary Care Prov ider Juarez Ziegler MD Unavailable [phone] Encounter Details Date Type Department Care Team (Late st Contact Info) Description 04/19/2018 Transcribe Orders [facility] Specimen Processing [address] [place] [address] Nando Del Rosario MD [address] [place], [place] [phone] [email or web address] Social History Tobacco Use Types Packs/Day Years Used Date Smoking Tobacco: Never Smokeless Tobacco: Never Alcohol Use Standard Drinks/Week Comments Yes 0 (1 standard drink = 0.6 oz pur e alcohol) Comments Unknown Sex and Gender Information Value Date Recorded Sex Assigned at Not on file Legal Sex Female 9:46 PM EDT Gender Identity Not on file Sexual Orientation Not on file documented as of this encounter Plan of Treatment Not on file documented as of this encounter Visit Diagnoses Not on filedocumented in this encounter Care Teams Floor Helper Relationship Specialty Start Date End Date Nando Del Rosario MD [address] [place] [address] [email or web address] PCP - General 10/16/17 Juarez Ziegler MD [address] [place] [address] [email or web address] PCP - Hematology/Oncology Medical Oncology 05/31/19 documented as of this encounter Additional Source Comments The information contained in this document represents components of the legal health record. It is not the complete legal health record.[facility]
--- OUTSIDE RECORDS SUMMARY | 2024-12-18 09:54 | XMS_ITS | Clinical Summary ---
Author Organization [facility] Address [address] [facility] [address] [place] [address] Phone Care Team Providers Care Mechanic Name Role Phone Nando Del Rosario MD Primary Care Prov ider Juarez Ziegler MD Unavailable [phone] Allergies Active Allergy Reactions Criticality Noted Date Comments Other 04/18/2018 Seasonal allergies Medications traZODone (DESYREL) 50 MG tabletIndications :takes about 2 times a month Take 50 mg by mouth nightly at bedtime as needed. Active omega 7-piz-qlx-fish oil 1,000 mg (120 mg-180 mg) Cap [...] PM EST): Take exactly as prescribed. See order takers supervisor regularly at least every 6-12 months. Daily [...] consultation with Dr. Chucky Bundy MD at [facility] in [facility] who is focusing on holistic approach. [...] intake Immunizations Immunization Administration Dates Next Due INFLUENZA, SPLIT VIRUS, TRIVALENT W/ PRESERVATIV E IM 11/26/2009,02/10/2009 Influenza Quadrivalent Preservative Free IM 10/29,01/03/2014 Influenza Recombinant Mohit valent Preservative Free IM 12/20/2018 Pneumococcal conjugate PCV13 03/12/2020 Tdap 11/26/2009 Zoster [...] FOBT 2006 SIGMOIDOSCOPY 2006 VIRTUAL COLONOSCOPY 2006 RSV VACCINE (1 - Risk 50-74 years 1-dose series) 2011 PNEUMOCOCCAL VACCINES (50+ years) (2 of 2 - PPSV23) 05/07/2020 03/12/2020 MAMMOGRAM 03/10/2023 03/10/2021, 07/2019, 02/01/2019, Additional history exists SCREENING FOR DIABETES 02/16/2024 02/15/2021 INFLUENZA VACCINE (#1) 2024 , 01/07/2021, 11/25/2019, Additional history exists COVID-19 VACCINE ( season) 2024 12/13/2021, 12/13/2021, 06/01/2021, Additional history exists Adult Td,Tdap Booster 11/17/2024 11/17/2014, 010 PAP [...] this topic Medical Devices Implanted Type Area Ceiling Installer Device Identifier Shelf Expiration Date Model / Serial / Lot Marker Site Biopsy Stainless Steel [id number]/[id number] - [id number] Implanted:Qty: 1 on 04/09/2019 by Tanmay Zimmer MD at [facility] Right: Breast [employer] [id number] / / Procedures Procedure [...] Bruno MD - 06/30/2022 8:58 AM EDT [facility] Patient Name: Caroline Cabrera Attending MD:: TABATHA BRUNO MD, Procedure Date: 06/30/2022 8:58 AM Date of : 1960 Age: 62 Admit Type: Outpatient Gender: Female Room: [place] [address] Referring MD: Nando Hanks MD Exam Type: [...] monitored continuously. The Olympus adult variable colonoscope [id number] #[id number] was introduced through the anus and [...] 8:58 AM Procedure Code(s): --- Professional --- 95683, Colonoscopy, flexible; diagnostic, including collection of specimen(s) by brushing or washing, when performed (separateprocedure) --- Technical --- 35416, Colonoscopy, flexible; diagnostic, including collection of specimen(s) by brushing or washing, when performed (separateprocedure) Diagnosis Code(s): --- Professional --- K64.9, Unspecified hemorrhoids Z80.0, Family history of malignant neoplasm of digestive organs --- Technical --- K64.9, Unspecified hemorrhoids Z80.0, Family history of malignant neoplasm of digestive organs CPT copyright 2021 [employer]. All rights reserved. The codes documented in this report are preliminary and upon residential subcontractor reviewmay be revised to meet current compliance requirements. Procedure Date: 06/30/2022 8:58:[address] [place] [address] Nando Hanks MD GI PROCEDURE ORDER MARGARET Final Result * Pap Test (05/16/2022 12:00 AM EDT) 05/16/2022 05/17/2022 9:1 9 AM EDT Narrative SEE NARRATIVE - 05/19/2022 11:12 AM EDT [address] [address] Inspector Insulation: Caroline Hamilton MD MARBLE CLEANER Cytology Report FINAL DIAGNOSIS A. PAP SMEAR [...] 59, 66, 68) Note: Testing performed by [email or web address] On[employer] HR-HPV analysis. Clinical correlation is advised. This HPV test was performed at [facility], [address] [place] [address]. This test has been FDA approved for SurePath cervical cytology specimens. The accuracy and precision of this test for all other specimen sources has been verified in the Cytopathology Laboratory of the [facility] and has not been cleared or approved by the U.S. Food and Drug Administration. Clinical correlation is advised. CLINICAL HISTORY Date of Last Menstrual Period: AGED 51 Menstrual History: Post Menopausal Other Clinical Conditions: Screening Pap Previous Unsatisfactory SPECIMEN SOURCE A: PAP SMEAR (SUREPATH) CE Patient Name: CAROLINE CABRERA : 1960 (Age: 62) Sex: F Institution: [facility] Location: [facility] Date of Collection: 05/16/2022 Date of Reported: 05/19/2022 11:12 Results to: Nando Hanks Nando Hanks MD CYTOLOGY ORDERABLE S Final [...] DUE DATE: 12 Months Right Mammography Screening us Naa Rico CLINICAL SUPERVISOR IMG MG EXAMS Final Result * Hepatitis C antibody, qualitative (04/20/2018 8:59 AM EST) HCV Negative Negative [facility] Comment: This is a screening test and should be confirmed with molecular testing Blood 04/20/2018 8:59 AM EST 04/20/2018 9:17 AM EST us Jody Quiroz MD LAB BLOOD ORDERABLES Fin al Result [facility] [address] [place] [address] from Last 3 Months or Most Recently Relevant to Health Maintenance Insurance [place] MEDIC[place] P[place] BLUE REPLACEMENT [facility] MEDICARE PPO BLUE [facility]PLACEMENT [facility] MEDICARE PPO BLUE REPLACEMENT [facility] MEDICARE PPO BLUE REPLACEMENT [facility] MEDICARE PPO BLUE REPLACEMENT [facility] MEDICARE PPO BLUE REPLACEMENT [facility] MEDICARE PPO BLUE [facility]PLACEMENT [facility] MEDICARE PPO BLUE REPLACEMENT [facility] MEDICARE PPO BLUE REPLACEMENT Care Teams Mechanic Relationship Specialty Start Date End Date Nando Del Rosario MD [address] [place] [phone] [email or web address] PCP - General 12/12/16 Juarez Ziegler MD [address] [place] [address] [email or web address] PCP - Hematology/Oncology Medical Oncology 05/31/19 Additional Source Comments The information contained in this document represents components of the legal health record. It is not the complete legal health record.[facility]
--- OUTSIDE RECORDS SUMMARY | 2024-12-18 09:55 | XMS_ITS | Encounter Summary ---
Author Organization [facility] Address [address] [place] [address] [place] [address] Phone Care Team Providers Care Staff Scientist Name Role Phone Nando Del Rosario MD Primary Care Prov ider Juarez Ziegler MD Unavailable [phone] Encounter Details Date Type Department Care Team (Late st Contact Info) Description 01/07/2021 Transcribe Orders Virtual Department [address] [place] [address] Naa Rico VETERINARY PRACTICE MANAGER [address] [place], [place] [phone] Breast screening (Primary Dx) Social History Tobacco Use Types Packs/Day Years Used Date Smoking Tobacco: Never Smokeless Tobacco: Never Alcohol Use Standard Drinks/Week Comments Yes 0 (1 standard drink = 0.6 oz pur e alcohol) very rare Comments Unknown Sex and Gender Information Value Date Recorded Sex Assigned at Not on file Legal Sex Female 9:46 PM EDT Gender Identity Not on file Sexual Orientation Not on file documented as of this encounter Plan of Treatment Not on file documented as of this encounter Visit Diagnoses Diagnosis Breast screening- Primary Breast screening, unspecified documented in this encounter Care Teams Staff Scientist Relationship Specialty Start Date End Date Nando Del Rosario MD [address] [place] [id number] [email or web address] PCP - General 12/12/16 Juarez Ziegler MD [address] [place] [address] [email or web address] PCP - Hematology/Oncology Medical Oncology 05/31/19 documented as of this encounter Additional Source Comments The information contained in this document represents components of the legal health record. It is not the complete legal health record.[facility]
--- OUTSIDE RECORDS SUMMARY | 2024-12-18 09:55 | XMS_ITS | Encounter Summary ---
Author Organization [facility] Address [address] [facility] [address] [place] [address] Phone Care Team Providers Care Marine Engineer Cpvec Name Role Phone Nando Del Rosario MD Primary Care Prov ider Juarez Ziegler MD Unavailable [phone] Encounter Details Date Type Department Care Team (Late st Contact Info) Description 03/12/2019 Ancillary Orders [facility],Outside Imaging [address] [place] [address] System, Provider Not In, PhD [address] [address] Social History Tobacco Use Types Packs/Day Years [...] on file documented as of this encounter Results * Mammogram Outside (No Interpretation) (03/04/2019 12:05 AM EST) Narrative SYSTEMGENERATED, DOCUMENTATION - 03/12/2019 1:50 PM EST This study is for PACS storage only and not for interpretation. us Provider Not In System PhD IMG OUTSIDE IMAGING W /OUT INTERPRETATION Final Result * US Breast Outside (No Interpretation) (03/04/2019 12:00 AM EST) Narrative SYSTEMGENERATED, DOCUMENTATION - 03/12/2019 1:50 PM EST This study is for PACS storage only and not for interpretation. us Provider Not In System PhD IMG OUTSIDE IMAGING W /OUT INTERPRETATION Final Result * Mammogram Outside (No Interpretation) (02/01/2019 12:00 AM EST) Narrative SYSTEMGENERATED, DOCUMENTATION - 03/12/2019 1:49 PM EST This study is for PACS storage only and not for interpretation. us Provider Not In System PhD IMG OUTSIDE IMAGING W /OUT INTERPRETATION Final Result * Mammogram Outside (No Interpretation) (07/19/2016 12:00 AM EDT) Narrative SYSTEMGENERATED, DOCUMENTATION - 03/12/2019 1:48 PM EST This study is for PACS storage only and not for interpretation. us Provider Not In System PhD IMG OUTSIDE IMAGING W /OUT INTERPRETATION Final Result * Mammogram Outside (No Interpretation) (06/29/2012 12:00 AM EDT) Narrative SYSTEMGENERATED, DOCUMENTATION - 03/12/2019 1:49 PM EST This study is for PACS storage only and not for interpretation. us Provider Not In System PhD IMG OUTSIDE IMAGING W /OUT INTERPRETATION Final Result * Mammogram Outside (No Interpretation) (04/15/2009 12:00 AM EST) Narrative SYSTEMGENERATED, DOCUMENTATION - 03/12/2019 1:48 PM EST This study is for PACS storage only and not for interpretation. us Provider Not In System PhD IMG OUTSIDE IMAGING W /OUT INTERPRETATION Final Result documented in this encounter Visit Diagnoses Not on filedocumented in this encounter Care Teams Marine Engineer Cpvec Relationship Specialty Start Date End Date Nando Del Rosario MD [address] [place] [phone] [email or web address] PCP - General 12/12/16 Juarez Ziegler MD [address] [place] [address] [email or web address] PCP - Hematology/Oncology Medical Oncology 05/31/19 documented as of this encounter Additional Source Comments The information contained in this document represents components of the legal health record. It is not the complete legal health record.[facility]
--- OUTSIDE RECORDS SUMMARY | 2024-12-18 09:55 | XMS_ITS | Encounter Summary ---
Author Organization [facility] Address [address] [place] [address] [place] [phone] Phone Care Team Providers Care Zone Manager Name Role Phone Nando Del Rosario MD Primary Care Prov ider Juarez Ziegler MD Unavailable [phone] Encounter Details Date Type Department Care Team (Late st Contact Info) Description 03/13/2019 Procedure Pass [facility] [address] [place] [address] Social History Tobacco Use Types Packs/Day Years [...] on filedocumented in this encounter Care Teams Zone Manager Relationship Specialty Start Date End Date Nando Del Rosario MD [address] [place] [address] [email or web address] PCP - General 12/12/16 Juarez Ziegler MD [address] [place] [address] [email or web address] PCP - Hematology/Oncology Medical Oncology 05/31/19 documented as of this encounter Additional Source Comments The information contained in this document represents components of the legal health record. It is not the complete legal health record.[facility]
--- OUTSIDE RECORDS SUMMARY | 2024-12-18 09:55 | XMS_ITS | Encounter Summary ---
Author Organization [facility] Address [address] [facility] [address] [place] [address] Phone Care Team Providers Care Principal Consultant Name Role Phone Nando Del Rosario MD Primary Care Prov ider Juarez Ziegler MD Unavailable [phone] Encounter Details Date Type Department Care Team (Late st Contact Info) Description 03/13/2019 Transcribe Orders Virtual Department [address] [place] [address] Naa Rico NP [address] [place] [address] Other abnormal and inconclusive findings on diagnostic imaging of breast (Primary Dx); Microcalcification of breast; Abnormal mammogram Social History Tobacco Use Types Packs/Day Years [...] documented as of this encounter Results * BI MAMMOGRAM STEREOTACTIC BREAST CORE BIOPSY WITHOUT TOMOSYNTHESIS (RIGHT) (04/09/2019 12:30 PM EST) Anatomical Region Laterality Modality Breast Right, Breast Bilateral Right M ammography 04/09/2019 12:2 1 PM EST Addenda Addendum by Sukhjinder Zimmer MD on 04/11/2019 8:44 AM EST PATHOLOGY CONCORDANCE ADDENDUM: The final pathologic report describes: Benign breast tissue with minimal fibrocystic change. Calcifications are not seen in multiple levels examined. The finding was discussed with the pathologist, Dr. Zurita regarding the lack of calcifications as specimen radiographs at the time of the biopsy clearly showed many calcifications in 2 of the cores. The paraffin blocks were brought back to radiology and radiographed and indeed no calcifications are seen within them. This finding was discussed at length with Dr. Zurita who states that it is more common for calcifications to be lost during processing when the calcifications are benign rather than malignant. Given her assertion regarding lost calcifications, the lack of worrisome findings in the tissue which was submitted, and the relatively benign appearance of the calcifications to start with, six-month follow-up right mammogram (as was already planned to follow-up the spiculated lesion which was biopsied 2 weeks ago) is recommended to follow these calcifications as well, rather than repeat stereotactic biopsy or excision at this time. The findings were also discussed at length with the patient by telephone. . . . . . . . . . . . . . . . . . . Edited by: Caroline Whipple on 04/11/2019 8:25 AM Impressions 04/09/2019 4:08 PM EST Uneventful, successful stereotactic sampling of clustered calcifications in the medial right breast. The patient will follow-up with Naa Rico NP regarding the pathologic results. POS [id number] Edited by: Caroline Whipple on 04/09/2019 12:50 PM Narrative 04/09/2019 4:08 PM EST Right breast stereotactic biopsy. Using ChloraPrep skin cleanser and 1% lidocaine anesthesia with a stereotactic guidance from a medial-lateral approach the petite 9-gauge Brevera vacuum- assisted biopsy device was utilized to sample the clustered calcifications seen to be increasing in the far medial breast on recent mammograms. Specimen radiograph confirms the presence of numerous of the calcifications in question in 2 of the cores, certainly a uniforms sales representative sample. A D-shaped metallic marker was deployed. Given the superficial nature of the calcifications, the marker was deployed slightly deeper and ends up about 2.5 cm deeper into the breast than the targeted calcifications, the remainder of which are still clearly visible. No significant hematoma is evident on the postprocedure mammograms. The patient tolerated the procedure very well without any immediate complications. us Naa Rico GARBAGE TRUCK DISPATCHER IMG BI IRP GUIDED BREAST PROC Edited Result - Final * BI MAMMOGRAM STEREOTACTIC BREAST CORE BIOPSY WITH TOMOSYNTHESIS (RIGHT) (03/22/2019 12:52 PM EST) Anatomical Region Laterality Modality Breast Right, Breast Bilateral Right M ammography 03/22/2019 5:08 PM EST Addenda Addendum by Lamont Cho MD on 03/27/2019 7:58 AM EST Pathologic analysis indicates a radial sclerosing lesion, 2 mm, with stromal calcifications. This seems concordant with the mammographic appearance. There are no associated masses, areas of density or sonographic findings in the region of this distortion. There is no clear change appearance in the change on the the 2-D mammogram since 2017 and given the negative biopsy result with seems to be the appropriate area, a six-month follow-up mammogram for surveillance is suggested. Stereotactic biopsy for the somewhat more pleomorphic calcifications superficial at the medial breast is recommended. All of this is discussed with the patient on the . Impressions 03/22/2019 5:51 PM EST Technical difficulties weaning to the failure of deployment of marker. This precludes definitive assessment for appropriateness of sampling at the targeted site. There were calcifications obtained which are probably related to the calcifications adjacent to the distortion seen at the inferior aspect on the prior MLO view and suggests that there probably was adequate sampling. However, further follow-up may be appropriate depending on pathologic analysis. Discussion with the patient and her at length indicated the uncertainty but in final review of the mammograms I am more confident that the appropriate area was sampled. Further follow-up recommendations will be included with the concordance report. UNILATERAL RIGHT MAMMOGRAM: Two-view full-field digital mammogram is obtained with tomosynthesis in both views. Comparison is made to studies from January and February from [facility]. No significant hematoma is apparent on post procedure views. Detailed review of pre- and post-fire images in correlation with the post procedure mammograms and original screening and diagnostic studies, suggests the calcifications obtained to appear to be from the periphery of the more lateral and inferior group at the periphery of the distortion and suggests the appropriate area was sampled. However, since the marker was not deployed, it would be difficult to determine that with complete confidence in light of a negative result. Scattered other areas of calcification are noted elsewhere in the breast, similar to the prior mammograms, including some slightly more pleomorphic calcifications. Superficially at the medial breast which was the second site recommended for biopsy. No new findings of concern are seen. IMPRESSION: No marker. Architectural distortion persists but area of concern was probably biopsied. See discussion above. Further recommendations will be made in light of the pathologic analysis. [id number] Narrative 03/22/2019 5:51 PM EST Before commencing the procedure, prior studies were reviewed. Before commencing the procedure, the risks and benefits were discussed with the patient, including the specific risks of hemorrhage, infection, and misdiagnosis. The patient gave written and verbal consent to proceed. Side of concern is confirmed with the patient and site marking occurred. We discussed the possibility of doing both the area of calcification and the distortion today but due to the technical difficulties below and small amounts of bleeding, second site biopsy was deferred. From the craniocaudal approach, the sonographic distortion was localized with tomosynthesis guidance. Skin was prepped in usual fashion. Skin was anesthetized with buffered 1% lidocaine. Deeper tissues were anesthetized with buffered 1% lidocaine with epinephrine. A small skin nayan was then made. Needle was advanced to the target and appropriate positioning was confirmed with stereotactic guidance. A total of 6 9 gauge vacuum-assisted core biopsies were then obtained. Specimen radiographs obtained during the biopsy process demonstrated calcifications to be present, presumably some of those surrounding the zone of distortion. Attempt to deploy a a titanium marker was then performed. However, the stylet for the marker was too short for the introducer and the marker was retained at the end of the introducer. As such, no marker was deployed and it was difficult to determine with confidence whether the appropriate area had been sampled as there was no air on final mammograms. Comparing the pre and postbiopsy appearance, calcifications obtained in the biopsy are likely those at the periphery of the inferior posterior calcifications seen on the prior mammogram, and suggests there probably was appropriate sampling. Introducer was then removed and adequate hemostasis achieved. There was a small amount of procedural bleeding but no prominent hematoma and most of this appeared to have dispersed by the time of follow-up mammogram. A dressing was applied. Unilateral mammogram is subsequently obtained after conclusion of procedure and reported below. The uncertainty regarding the determination of the adequacy of the biopsy due to the non-deployment of the marker was discussed at length with the patient and her . Should a negative result occur, MRI as follow-up as a way to both confirm appropriate biopsy and to evaluate the region if adequate sampling was not performed would be appropriate. Option of excisional biopsy is also discussed. Final follow-up recommendations will be included in the concordance report. Discharge instructions were reviewed with the patient by the technologist and myself. Written instructions are also given. Follow-up is to be performed by Dr. Rico . A concordance addendum will be generated when pathologic analysis is complete. Naa Rico GARBAGE TRUCK DISPATCHER IMG BI IRP GUIDED BREAST PROC Edited Result - Final documented in this encounter Visit Diagnoses Diagnosis Other abnormal and inconclusive findings on diagnostic imaging of breast- Primary Microcalcification of breast Abnormal mammogram Abnormal mammogram, unspecified Other abnormal and inconclusive findings on diagnostic imaging of breast Microcalcification of breast Other abnormal and inconclusive findings on diagnostic imaging of breast Abnormal mammogram Abnormal mammogram, unspecified documented in this encounter Care Teams Principal Consultant Relationship Specialty Start Date End Date Nando Del Rosario MD [address] [place] [phone] [email or web address] PCP - General 12/12/16 Juarez Ziegler MD [address] [place] [address] PCP - Hematology/Oncology Medical Oncology 05/31/19 documented as of this encounter Additional Source Comments The information contained in this document represents components of the legal health record. It is not the complete legal health record.[facility]
--- OUTSIDE RECORDS SUMMARY | 2024-12-18 09:55 | XMS_ITS | Encounter Summary ---
Author Organization [facility] Address [address] [place] [address] [place] [address] Phone Care Team Providers Care Event Staff Name Role Phone Nando Del Rosario MD Primary Care Prov ider Juarez Ziegler MD Unavailable [phone] Encounter Details Date Type Department Care Team (Late st Contact Info) Description 03/26/2019 Procedure Pass [facility]oscopy Admitting Dept Virtual Department [address] [place] [address] Social History Tobacco Use Types Packs/Day Years [...] on filedocumented in this encounter Care Teams Event Staff Relationship Specialty Start Date End Date Nando Del Rosario MD [address] [place] [address] [email or web address] PCP - General 12/12/16 Juarez Ziegler MD [address] [place] [address] [email or web address] PCP - Hematology/Oncology Medical Oncology 05/31/19 documented as of this encounter Additional Source Comments The information contained in this document represents components of the legal health record. It is not the complete legal health record.[facility]
--- OUTSIDE RECORDS SUMMARY | 2024-12-18 09:55 | XMS_ITS | Encounter Summary ---
Author Organization [facility] Address [address] [place] [address] Phone Care Team Providers Care Pals Specialist Name Role Phone Nando Del Rosario MD Primary Care Prov ider Juarez Ziegler MD Unavailable [phone] Encounter Details Date Type Department Care Team (Late st Contact Info) Description 03/27/2019 Ancillary Orders Virtual Department [address] [place] [address] Naa Rico FITTER WELDER [address] [place], [place] [phone] Abnormal findings on diagnostic imaging of breast Social History Tobacco Use Types Packs/Day Years [...] as of this encounter Visit Diagnoses Diagnosis Abnormal findings on diagnostic imaging of breast Other (abnormal) findings on radiological examination of breast documented in this encounter Care Teams Pals Specialist Relationship Specialty Start Date End Date Nando Del Rosario MD [address] [place] [address] [email or web address] PCP - General 12/12/16 Juarez Ziegler MD [address] [place] [address] [email or web address] PCP - Hematology/Oncology Medical Oncology 05/31/19 documented as of this encounter Additional Source Comments The information contained in this document represents components of the legal health record. It is not the complete legal health record.[facility]
--- OUTSIDE RECORDS SUMMARY | 2024-12-18 09:56 | XMS_ITS | Encounter Summary ---
Author Organization [facility] Address [address] [place] [address] [place] [address] Phone Care Team Providers Care Cardiac Tech Name Role Phone Nando Del Rosario MD Primary Care Prov ider Juarez Ziegler MD Unavailable [phone] Encounter Details Date Type Department Care Team (Late st Contact Info) Description 08/05/2019 Procedure Pass [facility], Ct Scan - [address] [address] Social History Tobacco Use Types Packs/Day Years [...] on filedocumented in this encounter Care Teams Cardiac Tech Relationship Specialty Start Date End Date Nando Del Rosario MD [address] [place] [address] [email or web address] PCP - General 12/12/16 Juarez Ziegler MD 30 [place] [address] [email or web address] PCP - Hematology/Oncology Medical Oncology 05/31/19 documented as of this encounter Additional Source Comments The information contained in this document represents components of the legal health record. It is not the complete legal health record.[facility]
--- OUTSIDE RECORDS SUMMARY | 2024-12-18 09:57 | XMS_ITS | Encounter Summary ---
Author Organization [facility] Address [address] [facility] [address] [place] [address] Phone Care Team Providers Care Services Coordinator Name Role Phone Nando Del Rosario MD Primary Care Prov ider Juarez Ziegler MD Unavailable [phone] Encounter Details Date Type Department Care Team (Late st Contact Info) Description 04/19/2019 Transcribe Orders Virtual Department 30 [place] [address] Naa Rico COMMUNITY DEVELOPMENT SPECIALIST [address] [place], [place] [phone] Systemic involvement of connective tissue (Primary Dx) Social History Tobacco Use Types [...] as of this encounter Visit Diagnoses Diagnosis Systemic involvement of connective tissue- Primary documented in this encounter Care Teams Services Coordinator Relationship Specialty Start Date End Date Nando Del Rosario MD [address] [place] [phone] [email or web address] PCP - General 12/12/16 Juarez Ziegler MD [address] [place] [address] [email or web address] PCP - Hematology/Oncology Medical Oncology 05/31/19 documented as of this encounter Additional Source Comments The information contained in this document represents components of the legal health record. It is not the complete legal health record.[facility]
--- OUTSIDE RECORDS SUMMARY | 2024-12-18 09:57 | XMS_ITS | Encounter Summary ---
Author Organization [facility] Address [address] [place] [address] [place] [address] Phone Care Team Providers Care Construction Project Coordinator Name Role Phone Nando Del Rosario MD Primary Care Prov ider Juarez Ziegler MD Unavailable [phone] Encounter Details Date Type Department Care Team (Late st Contact Info) Description 04/23/2019 Transcribe Orders Virtual Department 30 [place] [address] Naa Rico STAINED GLASS WINDOW DESIGNER [address] [place], [place] [phone] Disorder of connective tissue (Primary Dx) Social History [...] as of this encounter Visit Diagnoses Diagnosis Disorder of connective tissue- Primary Unspecified diffuse connective tissue disease documented in this encounter Care Teams Construction Project Coordinator Relationship Specialty Start Date End Date Nando Del Rosario MD [address] [place] [address] [email or web address] PCP - General 12/12/16 Juarez Ziegler MD [address] [place] [address] [email or web address] PCP - Hematology/Oncology Medical Oncology 05/31/19 documented as of this encounter Additional Source Comments The information contained in this document represents components of the legal health record. It is not the complete legal health record.[facility]
--- OUTSIDE RECORDS SUMMARY | 2024-12-18 09:57 | XMS_ITS | Encounter Summary ---
Author Organization [facility] Address [address] [place] [address] [place] [address] Phone Care Team Providers Care Firmware Engineer Name Role Phone Nando Del Rosario MD Primary Care Prov ider Juarez Ziegler MD Unavailable [phone] Encounter Details Date Type Department Care Team (Late st Contact Info) Description 08/05/2019 Procedure Pass [facility], Ct Scan - [address] [address] Social History Tobacco Use Types Packs/Day Years [...] on filedocumented in this encounter Care Teams Firmware Engineer Relationship Specialty Start Date End Date Nando Del Rosario MD [address] [place] [address] [email or web address] PCP - General 12/12/16 Juarez Ziegler MD [address] [place] [address] [email or web address] PCP - Hematology/Oncology Medical Oncology 05/31/19 documented as of this encounter Additional Source Comments The information contained in this document represents components of the legal health record. It is not the complete legal health record.[facility]
--- OUTSIDE RECORDS SUMMARY | 2024-12-18 09:57 | XMS_ITS | Encounter Summary ---
Author Organization [facility] Address [address] [place] [address] [place] [address] Phone Care Team Providers Care Dairy Equipment Installer Name Role Phone Nando Del Rosario MD Primary Care Prov ider Juarez Ziegler MD Unavailable [phone] Encounter Details Date Type Department Care Team (Late st Contact Info) Description 03/27/2019 Procedure Pass [facility] [address] [place] [address] Social History Tobacco Use Types Packs/Day Years [...] on filedocumented in this encounter Care Teams Dairy Equipment Installer Relationship Specialty Start Date End Date Nando Del Rosario MD [address] [place] [address] [email or web address] PCP - General 12/12/16 Juarez Ziegler MD [address] [place] [address] [email or web address] PCP - Hematology/Oncology Medical Oncology 05/31/19 documented as of this encounter Additional Source Comments The information contained in this document represents components of the legal health record. It is not the complete legal health record.[facility]
== END 2024-12-18 08:58 | disposition home or self-care (01) ==
LOC: HO.RESP 08:57
PROVIDERS: PCP Family Medicine; Visit Provider Hospitalist
DX: R91.1 Solitary pulmonary nodule (principal)
CPT/HCPCS: 94060; 94640; 94727; 94729

== ENCOUNTER → 2024-12-18 09:04 | Outpatient (BNV) | payer MEDICARE, SELFPAY | PROVIDERS: PCP Family Medicine; Visit Provider Hospitalist | DX: R91.1 Solitary pulmonary nodule (principal) | CPT/HCPCS: 94060; 94727; 94729 ==

== ENCOUNTER 2024-12-26 13:41 | Outpatient (AMB) | payer MEDICARE, SELFPAY ==
--- OUTSIDE RECORDS SUMMARY | 2009-04-15 01:00 | XMS_ITS | Encounter Summary ---
Author Organization [facility] Address [address] [facility] [address] [place] [phone] Phone Care Team Providers Care Sonography Technician Name Role Phone Unavailable Primary Care Provider Unavailabl e Encounter Details Date Type Department Care Team (Late st Contact Info) Description 04/15/2009 Hospital Encounter [facility],Outside Imaging [address] [place], [place] [phone] System, Provider [place] In, [place] [address] Social History Tobacco Use Types Packs/Day Years [...] It is not the complete legal health record.[facility]
--- OUTSIDE RECORDS SUMMARY | 2012-06-29 | XMS_ITS | Encounter Summary ---
Author Organization [facility] Address [address] [facility] [address] [place] [phone] Phone Care Team Providers Care Carbon Grinder Name Role Phone Unavailable Primary Care Provider Unavailabl e Encounter Details Date Type Department Care Team (Late st Contact Info) Description 06/29/2012 Hospital Encounter [facility],Outside Imaging [address] [place], [place] [phone] System, Provider [place] In, [place] [address] Social History Tobacco Use Types Packs/Day Years [...] It is not the complete legal health record.[facility]
[2024-12-26 13:46] VITALS: BP 104/52; PULSE 83; O2SAT 98; BMI 21.0
--- NOTE | 2024-12-26 13:46 | MHC.OFFVIS ---
Vital Signs 12/26/24 13:46 Height 5 ft 4 in Weight 122 lb 5.705 oz BMI 21.0 BP 104/52 L Blood Pressure Location Lt brachial Position Sitting Pulse 83 Pulse Source Pulse Oximeter Pulse Oximetry (%) 98 Oxygen Delivery Method Room Air Intake Visit Reasons: F/U S/P PFT Farmworker Animal Required: No Accompanied by: Self / Same As Patient Allergies No Known Allergies Allergy (Verified 12/26/24 13:50) HPI Comments Details: The patient is a 64 year woman with a known history of a mixed connective tissue disorder being followed closely by Rheumatology. She had been on methotrexate for a long time however, there was some liver issues and therefore now be switching over to a new agent, Benlysta. She has also been on the hydrochloroquine which she tolerates well. She notices that time she has some episodes of chest tightness. Substernal pressure. This is intermittent. Sometimes aggravated by cold air sometimes by exercise. She was unsure if it was hard or her lungs. She did undergo a CT scan of the chest some where it could Dauphin. I will request the report. In addition to that she underwent an echocardiogram which is reassuring. The patient also had pulmonary function studies. The PFTs were personally by me demonstrating what appears to be a partially reversible obstruction. It also significant airway disease this is suspicious of uncontrolled asthma or in her case for likely bronchiolitis related to her underlying connective tissue disease. In any case it will be still treated similarly so therefore will start her on respiratory therapy. If the patient does not respond to the therapy then we can consider additional testing at that point. I am going to prescribe her Symbicort. I did recommend she start Symbicort 1 puff twice a day as needed. She can always increase it to 2 puffs if she needs additional medication. 05/25/2023 the patient is here for a pulmonary follow-up visit. Overall the patient has been doing well. She did start the Arnuity inhaler and she has been getting significant improvement. Initially want her to be on Symbicort but she could not get it approved. She noticed significant improvement. She has not had to use her rescue inhaler in the chest pressure sensation have significantly improved. We did again review her PFTs demonstrating the reversible obstruction. 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 The fact that his better is reassuring. I have yet to get the CT scan of the chest that she had a Adame Dauphin. Want to make sure she does not have any evidence of any interstitial lung disease mentioned. The patient should either have a repeat CT scan if she has changes on the CT scan or potentially get an x-ray to make sure that we have a baseline. In the meantime she should continue with exercise capacity. She is off the methotrexate at this time and is currently tolerating the Benlysta which is excellent. 12/04/2023 the patient is here for a pulmonary follow-up visit. The patient overall has been doing better. The Anoro inhaler initially started has not to her respiratory symptoms significantly. She is pretty happy with the improvement in her respiratory symptoms. However, she has been noticing that she is getting more hoarse. She has been losing her voice. She did have an ENT evaluation and did have laryngoscopy in did not find any lesions. Explained to her that the powder inhaler can result in the hoarseness. She does gargle well after using it but still difficult to remove all the sediment from the medication. Therefore, the patient has failed the powdered inhaler and will therefore switch over to a HFA formulation. I did send asthma next to the pharmacy. Will have to do prior approval. I also did provide the patient spacer in order to minimize upper airway irritation and hoarseness. The patient also had a CT scan of the chest in 07/17/2023 which I personally reviewed. She has no evidence of any parenchymal lung disease. Her airways appeared to be stable and I do not appreciate any mosaic pattern. Although she does have some small pulmonary nodules noted subcentimeter in size in the right hemithorax. These nodules were not documented in the final report but there are present. Therefore, will discuss repeating the CT scan sometime in the fall 2024. 06/10/2024 the patient is here for a pulmonary follow-up visit. Overall she is doing about the same. Still complaining of the hoarseness. As far as her breathing she seems to be doing okay just on the short-acting beta agonist. Although she knows her symptoms typically worsening the spring and she gets active doing exercises. We did try to get her on inhaled cortical steroids but she did not tolerate the powder specially because she has Sjogren's and she gets very dry and powder bothers her. So therefore we try getting her asthma next which is approved but can not get it because it was back order. Then we placed her on Advair HFA which she tried but a did cause hoarseness. So she stopped it. Now as far as options we can consider Alvesco which will be a better agent for her to minimize irritation to the vocal cords. In the meantime the patient also has some irritation to the back of the throat. Appears to be likely in the soft palate although will go ahead and give her call his being mouthwash to make sure that the hoarseness not from a smoldering infection. 12/26/2024 the patient is here for pulmonary follow-up visit. Overall she is doing well she is tolerating the Alvesco well. She is using a spacer and denies any significant adverse effects. However, she did go to [place] back in August and she did have significant issues after getting sick. She had significant chest tightness and wheezing. She used her inhaler regularly. The patient now is back to baseline. She did undergo pulmonary function studies which I personally reviewed the. No evidence of any obstructive nor restrictive ventilatory defects and normal gas exchange. However, she does have small airways disease and a significant response to bronchodilators due to her underlying asthma. When compared to previous PFTs actually look better. She seems to be responding well to the maintenance therapy which she should continue. She does have a rescue inhaler. Right now she is doing okay. If she goes on vacation again she will call to get an emergency medication pack. Otherwise the patient can return in a year's time if he has any issues prior to this she can always call for an earlier assessment. [facility] Medical History (Updated 12/26/24 @ 18:59 by Mike Kelly MD) Asthma Pulmonary nodule Lymphadenopathy Transaminitis Palpitations Ovarian cyst Hearing loss Surgical History Hx of knee surgery Hx of tonsillectomy Family History Maternal Grandmother Raynaud disease Osteoarthritis Sister Rheumatoid arthritis Mother Colon cancer Father Congestive heart failure Social History Alcohol intake: current Alcohol intake frequency: other Patient Tobacco Use Status: Former Tobacco user e-Cigarette/Vaping Use: Never Used Review of Systems Const Denies fever(s) Eyes Reports dry eyes ENT Reports dry mouth Card Denies chest pain and Reports dyspnea on exertion Resp Reports dyspnea on exertion and Reports wheezing GI Reports no additional complaints Reports no additional complaints Musc Reports as per HPI, Reports joint swelling and Reports stiffness Skin/Breast Denies rash [place]/Lymph Denies lymphadenopathy Aller/Immun Reports wheezing Physical Exam Vital Signs: Last Vital Signs Pulse 83 12/26/24 13:46 BP 104/52 L 12/26/24 13:46 Pulse Ox 98 12/26/24 13:46 Oxygen Delivery Method Room Air 12/26/24 13:46 BMI result Body Mass Index 21.0 Const General: comfortable HEENT Head: Yes normocephalic Neck Neck: Yes supple Chest Chest palpation & inspection: normal inspection of the chest Resp Effort & Inspection: normal respiratory effort and No prolonged expiratory phase Auscultation: clear to auscultation bilaterally and no wheezes Cardio Heart sounds: S1 normal heart sound present and S2 normal heart sound present GI Palpation (GI): Soft to palpation Skin General skin exam: no rashes or lesions noted Extrem General: Yes no clubbing, cyanosis or edema Assessment & Plan Assessment & Plan (1) Shortness of breath on exertion: Code(s): R06.02 - Shortness of breath Category: Medical (2) Mixed connective tissue disease: Comment: dx 2016 (Raynaud's, arthralgias, dry eye under states this, dry mouth, fatigue, +++ SONAR WATCHSTANDER, 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, low C4) HCQ 2017 MTX added 2019 effective. DC 01/2023 Benlysta infusions 04/2023 - 01/2024. INsurance issues Benlysta SC 01/2024. effective Code(s): M35.1 - Other overlap syndromes Category: Medical (3) Pulmonary nodule: Code(s): R91.1 - Solitary pulmonary nodule Category: Medical (4) Hoarseness: Code(s): R49.0 - Dysphonia Category: Medical (5) Asthma: Code(s): J45.909 - Unspecified asthma, uncomplicated Category: Medical Qualifiers: Asthma severity: moderate Asthma persistence: persistent Asthma complication type: uncomplicated Qualified Code(s): J45.40 - Moderate persistent asthma, uncomplicated Plan Alvesco HFA DEISI as needed Exercise as tolerated F/U 8-12 months Coding Level of Care Code Est Pt Level 4 (22376) Complex EM visit Add On G2211 Diagnoses Shortness of breath on exertion R06.02 Mixed connective tissue disease M35.1 Pulmonary nodule R91.1 Hoarseness R49.0 Moderate persistent asthma without complication J45.40 Asthma severity: moderate Asthma persistence: persistent Asthma complication type: uncomplicated Time Spent (min) 16
--- OUTSIDE RECORDS SUMMARY | 2024-12-26 16:41 | XMS_ITS | Encounter Summary ---
Author Organization [facility] Address [address] [place] [address] [place] [address] Phone Care Team Providers Care Utility Maintenance Worker Name Role Phone Nando Del Rosario MD Primary Care Prov ider Juarez Ziegler MD Unavailable [phone] Encounter Details Date Type Department Care Team (Late st Contact Info) Description 01/08/2021 Procedure Pass [facility], [address] [address] Social History Tobacco Use Types Packs/Day Years [...] on filedocumented in this encounter Care Teams Utility Maintenance Worker Relationship Specialty Start Date End Date Nando Del Rosario MD [address] [place] [address] [email or web address] PCP - General 12/12/16 Juarez Ziegler MD [address] [place] [address] [email or web address] PCP - Hematology/Oncology Medical Oncology 05/31/19 documented as of this encounter Additional Source Comments The information contained in this document represents components of the legal health record. It is not the complete legal health record.[facility]
--- OUTSIDE RECORDS SUMMARY | 2024-12-26 16:41 | XMS_ITS | Clinical Summary ---
Author Organization [facility] Address [address] [facility] [address] [place] [address] Phone Care Team Providers Care Preparer Making Department Name Role Phone Nando Del Rosario MD Primary Care Prov ider Juarez Ziegler MD Unavailable [phone] Allergies Active Allergy Reactions Criticality Noted Date Comments Other 04/18/2018 Seasonal allergies Medications traZODone (DESYREL) 50 MG tabletIndications :takes about 2 times a month Take 50 mg by mouth nightly at bedtime as needed. Active omega 1-umj-tek-fish oil 1,000 mg (120 mg-180 mg) Cap [...] PM EST): Take exactly as prescribed. See boiler control room operator regularly at least every 6-12 months. Daily [...] consultation with Dr. Chucky Bundy MD at [facility] in [facility] who is focusing on holistic approach. [...] PAP SMEAR 05/16/2025 05/16/2022, 02/27, 08/24/2017 COLONOSCOPY 06/30/2025 06/30/2022 COLORECTAL CANCER SCREENING 06/30/2025 HEPATITIS C SCREENING Completed 04/20/2018 ZOSTER VACCINES [...] this topic Medical Devices Implanted Type Area Composition Teacher Device Identifier Shelf Expiration Date Model / Serial / Lot Marker Site Biopsy Stainless Steel Bx/10ea - [id number] Implanted:Qty: 1 on 04/09/2019 by Tanmay Zimmer MD at [facility] Right: Breast [employer] [id number] [...] Bruno MD - 06/30/2022 8:58 AM EDT [facility] Patient Name: Caroline Cabrera Attending MD:: TABATHA BRUNO MD, Procedure Date: 06/30/2022 8:58 AM Date of : 1960 Age: 62 Admit Type: Outpatient Gender: Female Room: [place] [address] Referring MD: Nando Hanks MD Exam Type: [...] monitored continuously. The Olympus adult variable colonoscope [id number] #[id number] was introduced through the anus and [...] 8:58 AM Procedure Code(s): --- Professional --- 29983, Colonoscopy, flexible; diagnostic, including collection of specimen(s) by brushing or washing, when performed (separateprocedure) --- Technical --- 06756, Colonoscopy, flexible; diagnostic, including collection of specimen(s) by brushing or washing, when performed (separateprocedure) Diagnosis Code(s): --- Professional --- K64.9, Unspecified hemorrhoids Z80.0, Family history of malignant neoplasm of digestive organs --- Technical --- K64.9, Unspecified hemorrhoids Z80.0, Family history of malignant neoplasm of digestive organs CPT copyright 2021 [employer]. All rights reserved. The codes documented in this report are preliminary and upon product development actuary reviewmay be revised to meet current compliance requirements. Procedure Date: 06/30/2022 8:58:[address] [place] [address] Nando Hanks MD GI PROCEDURE ORDER MARGARET Final Result * Pap Test (05/16/2022 12:00 AM EDT) 05/16/2022 05/17/2022 9:1 9 AM EDT Narrative SEE NARRATIVE - 05/19/2022 11:12 AM EDT [address] [address] Transport Conductor: Caroline Hamilton MD MELT HELPER Cytology Report FINAL DIAGNOSIS A. PAP SMEAR [...] 59, 66, 68) Note: Testing performed by [employer] HR-HPV analysis. Clinical correlation is advised. This HPV test was performed at [facility], [address] [place] [address]. This test has been FDA approved for [employer]Path cervical cytology specimens. The accuracy and precision of this test for all other specimen sources has been verified in the Cytopathology Laboratory of the [facility] and has not been cleared or approved by the U.S. Food and Drug Administration. Clinical correlation is advised. CLINICAL HISTORY Date of Last Menstrual Period: AGED 51 Menstrual History: Post Menopausal Other Clinical Conditions: Screening Pap Previous Unsatisfactory SPECIMEN SOURCE A: PAP SMEAR (SUREPATH) CE Patient Name: CAROLINE CABRERA : 1960 (Age: 62) Sex: F Institution: [facility] Location: [facility] Date of Collection: 05/16/2022 Date of [...] Months Right Mammography Screening us Naa Rico ZIG ZAG SPRING MACHINE OPERATOR IMG MG EXAMS Final Result * Hepatitis C antibody, qualitative (04/20/2018 8:59 AM EST) HCV Negative Negative [facility] Comment: This is a screening test and should be confirmed with molecular testing Blood 04/20/2018 8:59 AM EST 04/20/2018 9:17 AM EST us Jody Quiroz MD LAB BLOOD ORDERABLES Fin al Result [facility] [address] [place] [address] from Last 3 Months or Most Recently Relevant to Health Maintenance Insurance [employer] MEDICARE PPO BLUE REPLACEMENT [facility] MEDICARE PPO BLUE REPLACEMENT [facility] MEDICARE PPO BLUE REPLACEMENT [facility] MEDICARE PPO BLUE REPLACEMENT [facility] MEDICARE PPO BLUE REPLACEMENT [facility] MEDICARE PPO BLUE REPLACEMENT [facility] MEDICARE PPO BLUE REPLACEMENT [facility] MEDICARE PPO BLUE REPLACEMENT [facility] MEDICARE PPO BLUE REPLACEMENT Care Teams Preparer Making Department Relationship Specialty Start Date End Date Nando Del Rosario MD [address] [place] [address] [email or web address] PCP - General 12/12/16 Juarez Ziegler MD [address] [place] [address] [email or web address] PCP - Hematology/Oncology Medical Oncology 05/31/19 Additional Source Comments The information contained in this document represents components of the legal health record. It is not the complete legal health record.[facility]
--- OUTSIDE RECORDS SUMMARY | 2024-12-26 16:41 | XMS_ITS | Encounter Summary ---
Author Organization [facility] Address [address] [place] [address] [place] [address] Phone Care Team Providers Care Planner Intern Name Role Phone Nando Del Rosario MD Primary Care Prov ider Juarez Ziegler MD Unavailable [phone] Encounter Details Date Type Department Care Team (Late st Contact Info) Description 01/07/2021 Transcribe Orders Virtual Department [address] [place] [address] Naa Rico RISK MANAGEMENT MANAGER [address] [place], [place] [phone] Breast screening (Primary Dx) Social History Tobacco [...] unspecified documented in this encounter Care Teams Planner Intern Relationship Specialty Start Date End Date Nando Del Rosario MD [address] [place] [address] [email or web address] PCP - General 12/12/16 Juarez Ziegler MD [address] [place] [address] [email or web address] PCP - Hematology/Oncology Medical Oncology 05/31/19 documented as of this encounter Additional Source Comments The information contained in this document represents components of the legal health record. It is not the complete legal health record.[facility]
--- OUTSIDE RECORDS SUMMARY | 2024-12-26 16:41 | XMS_ITS | Encounter Summary ---
Author Organization [facility] Address [address] [facility] [address] [place] [address] Phone Care Team Providers Care Conche Loader And Unloader Name Role Phone Nando Del Rosario MD Primary Care Prov ider Juarez Ziegler MD Unavailable [phone] Encounter Details Date Type Department Care Team (Late st Contact Info) Description 04/19/2018 Transcribe Orders [facility] Specimen Processing [address] [place] [address] Nando Del Rosario MD [address] [place], [place] [phone] [email or web address] Social History Tobacco Use Types Packs/Day [...] on filedocumented in this encounter Care Teams Conche Loader And Unloader Relationship Specialty Start Date End Date Nando Del Rosario MD [address] [place] [address] PCP - General 10/16/17 Juarez Ziegler MD [address] [place] [address] [email or web address] PCP - Hematology/Oncology Medical Oncology 05/31/19 documented as of this encounter Additional Source Comments The information contained in this document represents components of the legal health record. It is not the complete legal health record.[facility]
--- OUTSIDE RECORDS SUMMARY | 2024-12-26 16:41 | XMS_ITS | Encounter Summary ---
Author Organization [facility] Address [address] [facility] [address] [place] [address] Phone Care Team Providers Care Communications Technologist Name Role Phone Nando Del Rosario MD Primary Care Prov ider Juarez Ziegler MD Unavailable [phone] Encounter Details Date Type Department Care Team (Late st Contact Info) Description 06/30/2022 Procedure Pass [facility] Endoscopy Admitting Dept Virtual Department 30 [place] [address] Social History Tobacco Use Types Packs/Day Years [...] on filedocumented in this encounter Care Teams Communications Technologist Relationship Specialty Start Date End Date Nando Del Rosario MD [address] [place] [phone] [email or web address] PCP - General 12/12/16 Juarez Ziegler MD [address] [place] [address] [email or web address] PCP - Hematology/Oncology Medical Oncology 05/31/19 documented as of this encounter Additional Source Comments The information contained in this document represents components of the legal health record. It is not the complete legal health record.[facility]
--- OUTSIDE RECORDS SUMMARY | 2024-12-26 16:41 | XMS_ITS | Encounter Summary ---
Author Organization [facility] Address [address] [facility] [address] [place] [address] Phone Care Team Providers Care New Product Trainer Name Role Phone Nando Del Rosario MD Primary Care Prov ider Juarez Ziegler MD Unavailable [phone] Encounter Details Date Type Department Care Team (Late st Contact Info) Description 03/12/2019 Ancillary Orders [facility],Outside Imaging [address] [place] [address] System, Provider Not In, PhD [address] [address] Social History Tobacco Use Types Packs/Day Years [...] on filedocumented in this encounter Care Teams New Product Trainer Relationship Specialty Start Date End Date Nando Del Rosario MD [address] [place] [phone] [email or web address] PCP - General 12/12/16 Juarez Ziegler MD [address] [place] [address] [email or web address] PCP - Hematology/Oncology Medical Oncology 05/31/19 documented as of this encounter Additional Source Comments The information contained in this document represents components of the legal health record. It is not the complete legal health record.[facility]
--- OUTSIDE RECORDS SUMMARY | 2024-12-26 16:41 | XMS_ITS | Encounter Summary ---
Author Organization [facility] Address [address] [place] [address] [place] [address] Phone Care Team Providers Care Train Gate Attendant Name Role Phone Nando Del Rosario MD Primary Care Prov ider Juarez Ziegler MD Unavailable [phone] Encounter Details Date Type Department Care Team (Late st Contact Info) Description 03/26/2019 Procedure Pass [facility] Endoscopy Admitting Dept Virtual Department [address] [place] [address] Social History Tobacco Use Types Packs/Day Years [...] on filedocumented in this encounter Care Teams Train Gate Attendant Relationship Specialty Start Date End Date Nando Del Rosario MD [address] [place] [address] [email or web address] PCP - General 12/12/16 Juarez Ziegler MD [address] [place] [address] [email or web address] PCP - Hematology/Oncology Medical Oncology 05/31/19 documented as of this encounter Additional Source Comments The information contained in this document represents components of the legal health record. It is not the complete legal health record.[facility]
--- OUTSIDE RECORDS SUMMARY | 2024-12-26 16:41 | XMS_ITS | Encounter Summary ---
Author Organization [facility] Address [address] [place] [address] Phone Care Team Providers Care Remote Broadcast Technician Name Role Phone Nando Del Rosario MD Primary Care Prov ider Juarez Ziegler MD Unavailable [phone] Encounter Details Date Type Department Care Team (Late st Contact Info) Description 03/27/2019 Ancillary Orders Virtual Department [address] [place] [address] Naa Rico RELIABILITY TECHNOLOGIST [address] [place], [place] [phone] Abnormal findings on diagnostic imaging of breast [...] breast documented in this encounter Care Teams Remote Broadcast Technician Relationship Specialty Start Date End Date Nando Del Rosario MD [address] [place] [address] [email or web address] PCP - General 12/12/16 Juarez Ziegler MD [address] [place] [address] [email or web address] PCP - Hematology/Oncology Medical Oncology 05/31/19 documented as of this encounter Additional Source Comments The information contained in this document represents components of the legal health record. It is not the complete legal health record.[facility]
--- OUTSIDE RECORDS SUMMARY | 2024-12-26 16:41 | XMS_ITS | Encounter Summary ---
Author Organization [facility] Address [address] [place] [address] [place] [address] Phone Care Team Providers Care Lecturer In Marketing Name Role Phone Nando Del Rosario MD Primary Care Prov ider Juarez Ziegler MD Unavailable [phone] Encounter Details Date Type Department Care Team (Late st Contact Info) Description 03/13/2019 Procedure Pass [facility] [address] [place] [address] Social History Tobacco Use Types Packs/Day Years [...] on filedocumented in this encounter Care Teams Lecturer In Marketing Relationship Specialty Start Date End Date Nando Del Rosario MD [address] [place] [phone] [email or web address] PCP - General 12/12/16 Juarez Ziegler MD [address] [place] [address] [email or web address] PCP - Hematology/Oncology Medical Oncology 05/31/19 documented as of this encounter Additional Source Comments The information contained in this document represents components of the legal health record. It is not the complete legal health record.[facility]
--- OUTSIDE RECORDS SUMMARY | 2024-12-26 16:41 | XMS_ITS | Encounter Summary ---
Author Organization [facility] Address [address] [place] [address] [place] [address] Phone Care Team Providers Care Spa Coordinator Name Role Phone Nando Del Rosario MD Primary Care Prov ider Juarez Ziegler MD Unavailable [phone] Encounter Details Date Type Department Care Team (Late st Contact Info) Description 08/05/2019 Procedure Pass [facility], Ct Scan - [address] [address] Social History Tobacco Use Types Packs/Day Years [...] on filedocumented in this encounter Care Teams Spa Coordinator Relationship Specialty Start Date End Date Nando Del Rosario MD [address] [place] [address] [email or web address] PCP - General 12/12/16 Juarez Ziegler MD [address] [place] [address] [email or web address] PCP - Hematology/Oncology Medical Oncology 05/31/19 documented as of this encounter Additional Source Comments The information contained in this document represents components of the legal health record. It is not the complete legal health record.[facility]
--- OUTSIDE RECORDS SUMMARY | 2024-12-26 16:41 | XMS_ITS | Encounter Summary ---
Author Organization [facility] Address [address] [facility] [address] [place] [address] Phone Care Team Providers Care J2Ee Application Developer Name Role Phone Nando Del Rosario MD Primary Care Prov ider Juarez Ziegler MD Unavailable [phone] Encounter Details Date Type Department Care Team (Late st Contact Info) Description 03/13/2019 Transcribe Orders Virtual Department [address] [place] [address] Naa Rico NP [address] [place] [address] Other abnormal and inconclusive findings on diagnostic [...] in 2 of the cores, certainly a insurance sales representative sample. A D-shaped metallic marker [...] without any immediate complications. us Naa Rico PHYSICAL THERAPIST TECHNICIAN IMG BI IRP GUIDED BREAST PROC Edited [...] to studies from January and February from [facility]. No significant hematoma is apparent on post [...] when pathologic analysis is complete. Naa Rico PHYSICAL THERAPIST TECHNICIAN IMG BI IRP GUIDED BREAST PROC Edited [...] unspecified documented in this encounter Care Teams J2Ee Application Developer Relationship Specialty Start Date End Date Nando Del Rosario MD [address] [place] [phone] [email or web address] PCP - General 12/12/16 Juarez Ziegler MD [address] [place] [address] PCP - Hematology/Oncology Medical Oncology 05/31/19 documented as of this encounter Additional Source Comments The information contained in this document represents components of the legal health record. It is not the complete legal health record.[facility]
--- OUTSIDE RECORDS SUMMARY | 2024-12-26 16:42 | XMS_ITS | Encounter Summary ---
Author Organization [facility] Address [address] [place] [address] [place] [address] Phone Care Team Providers Care Air Moving Technician Name Role Phone Nando Del Rosario MD Primary Care Prov ider Juarez Ziegler MD Unavailable [phone] Encounter Details Date Type Department Care Team (Late st Contact Info) Description 04/23/2019 Transcribe Orders Virtual Department 30 [place] [address] Naa Rico WATER PROJECT MANAGER [address] [place], [place] [phone] Disorder of connective tissue (Primary Dx) Social [...] disease documented in this encounter Care Teams Air Moving Technician Relationship Specialty Start Date End Date Nando Del Rosario MD [address] [place] [address] [email or web address] PCP - General 12/12/16 Juarez Ziegler MD [address] [place] [address] [email or web address] PCP - Hematology/Oncology Medical Oncology 05/31/19 documented as of this encounter Additional Source Comments The information contained in this document represents components of the legal health record. It is not the complete legal health record.[facility]
--- OUTSIDE RECORDS SUMMARY | 2024-12-26 16:42 | XMS_ITS | Encounter Summary ---
Author Organization [facility] Address [address] [place] [address] [place] [address] Phone Care Team Providers Care Resident Program Specialist Name Role Phone Nando Del Rosario MD Primary Care Prov ider Juarez Ziegler MD Unavailable [phone] Encounter Details Date Type Department Care Team (Late st Contact Info) Description 08/05/2019 Procedure Pass [facility], Ct Scan - [address] [address] Social History Tobacco Use Types Packs/Day Years [...] on filedocumented in this encounter Care Teams Resident Program Specialist Relationship Specialty Start Date End Date Nando Del Rosario MD [address] [place] [address] [email or web address] PCP - General 12/12/16 Juarez Ziegler MD 30 [place] [address] [email or web address] PCP - Hematology/Oncology Medical Oncology 05/31/19 documented as of this encounter Additional Source Comments The information contained in this document represents components of the legal health record. It is not the complete legal health record.[facility]
--- OUTSIDE RECORDS SUMMARY | 2024-12-26 16:42 | XMS_ITS | Encounter Summary ---
Author Organization [facility] Address [address] [place] [address] [place] [address] Phone Care Team Providers Care Staker Surveying Name Role Phone Nando Del Rosario MD Primary Care Prov ider Juarez Ziegler MD Unavailable [phone] Encounter Details Date Type Department Care Team (Late st Contact Info) Description 03/27/2019 Procedure Pass [facility] [address] [place] [address] Social History Tobacco Use Types Packs/Day Years [...] on filedocumented in this encounter Care Teams Staker Surveying Relationship Specialty Start Date End Date Nando Del Rosario MD [address] [place] [address] [email or web address] PCP - General 12/12/16 Juarez Ziegler MD [address] [place] [address] [email or web address] PCP - Hematology/Oncology Medical Oncology 05/31/19 documented as of this encounter Additional Source Comments The information contained in this document represents components of the legal health record. It is not the complete legal health record.[facility]
--- OUTSIDE RECORDS SUMMARY | 2024-12-26 16:42 | XMS_ITS | Encounter Summary ---
Author Organization [facility] Address [address] [facility] [address] [place] [address] Phone Care Team Providers Care Motion Picture Film Examiner Name Role Phone Nando Del Rosario MD Primary Care Prov ider Juarez Ziegler MD Unavailable [phone] Encounter Details Date Type Department Care Team (Late st Contact Info) Description 04/19/2019 Transcribe Orders Virtual Department 30 [place] [address] Naa Rico SHOP MECHANIC HELPER [address] [place], [place] [phone] Systemic involvement of connective tissue (Primary Dx) [...] Primary documented in this encounter Care Teams Motion Picture Film Examiner Relationship Specialty Start Date End Date Nando Del Rosario MD [address] [place] [phone] [email or web address] PCP - General 12/12/16 Juarez Ziegler MD [address] [place] [address] [email or web address] PCP - Hematology/Oncology Medical Oncology 05/31/19 documented as of this encounter Additional Source Comments The information contained in this document represents components of the legal health record. It is not the complete legal health record.[facility]
== END 2024-12-26 14:16 | disposition home or self-care (01) ==
LOC: HO.HPS 13:41
PROVIDERS: PCP Family Medicine; Visit Provider Hospitalist
DX: R06.02 Shortness of breath (principal); M35.1 Other overlap syndromes; R91.1 Solitary pulmonary nodule; R49.0 Dysphonia; J45.40 Moderate persistent asthma, uncomplicated
CPT/HCPCS: 99214; G2211

== ENCOUNTER → 2024-12-26 13:41 | Outpatient (BNVA) | payer MEDICARE, SELFPAY | PROVIDERS: PCP Family Medicine; Visit Provider Hospitalist | DX: J45.40 Moderate persistent asthma, uncomplicated (principal); R49.0 Dysphonia; R91.1 Solitary pulmonary nodule; R06.02 Shortness of breath; M35.1 Other overlap syndromes | CPT/HCPCS: 99212 ==

== ENCOUNTER 2025-02-25 10:50 | Outpatient (REF) | payer MEDICARE, SELFPAY ==
--- OUTSIDE RECORDS SUMMARY | 2009-04-15 | XMS_ITS | Encounter Summary ---
Author Organization [facility] Address [address] [facility] [address] [place] [phone] Phone Care Team Providers Care Tank House Supervisor Name Role Phone Unavailable Primary Care Provider Unavailabl e Encounter Details Date Type Department Care Team (Late st Contact Info) Description 04/15/2009 Hospital Encounter [facility],Outside Imaging [address] [place], [place] [phone] System, Provider [place] In, [place] [address] Social History Tobacco Use Types Packs/Day Years Used Date Smoking Tobacco: Never Smokeless Tobacco: Never Comments:Smoked 1 1/2 years in college Alcohol Use Standard Drinks/Week Comments Yes 0 (1 standard drink = 0.6 oz pur e alcohol) very rare Education Answer Date Recorded Are you interested in more education? Not on alice e 06/24/2022 Are you concerned about learning? Not on file 06/24/2022 No 06/24/2022 No 06/24/2022 Digital Access Answer Date Recorded No 07/25/2022 No 07/25/2022 No 07/25/2022 Reliable internet access at home? Not on file 07/25/2022 Device with a working camera? Not on file Intimate Partner Violence Answer Date R ecorded Are you denied basic needs s uch as food, clothing, or medical care? No 06/30/2022 In the past 12 months have y ou been in a relationship with a person who hurts, threatens, or tries to control you? No 06/30/2022 Are you denied basic needs s uch as food, clothing, or medical care? No 06/30/2022 In the past 12 months have y ou been in a relationship with a person who hurts, threatens, or tries to control you? No 06/30/2022 Comments No Sex and Gender Information Value Date Recorded Sex Assigned at Not on file Legal Sex Female 9:46 PM EDT Gender Identity Not on file Sexual Orientation Not on file documented as of this encounter Plan of Treatment Not on file documented as of this encounter Procedures Procedure Name Priority Date/Time Associated Diagnosis Comments BI MAMMOGRAM OUTSIDE (NO INTERPRETATION) Routine 04/15/2009 12:00 AM EST documented in this encounter Results * Mammogram Outside (No Interpretation) (04/15/2009 12:00 AM EST) Narrative SYSTEMGENERATED, DOCUMENTATION - 03/12/2019 1:48 PM EST This study is for PACS storage only and not for interpretation. us Provider Not In System PhD IMG OUTSIDE IMAGING W /OUT INTERPRETATION Final Result documented in this encounter Visit Diagnoses Not on filedocumented in this encounter Additional Source Comments The information contained in this document represents components of the legal health record. It is not the complete legal health record.[facility]
--- OUTSIDE RECORDS SUMMARY | 2012-06-28 23:00 | XMS_ITS | Encounter Summary ---
Author Organization [facility] Address [address] [facility] [address] [place] [phone] Phone Care Team Providers Care Bearingizer Name Role Phone Unavailable Primary Care Provider Unavailabl e Encounter Details Date Type Department Care Team (Late st Contact Info) Description 06/29/2012 Hospital Encounter [facility],Outside Imaging [address] [place], [place] [phone] System, Provider [place] In, [place] [address] Social History Tobacco Use Types Packs/Day Years [...] Comments BI MAMMOGRAM OUTSIDE (NO INTERPRETATION) Routine 06/29/2012 12:00 AM EDT documented in this encounter Results * Mammogram Outside (No Interpretation) (06/29/2012 12:00 AM EDT) Narrative SYSTEMGENERATED, DOCUMENTATION - 03/12/2019 1:49 PM EST This study is for PACS storage only and not for interpretation. us Provider Not In System PhD IMG OUTSIDE IMAGING W /OUT INTERPRETATION Final Result documented in this encounter Visit Diagnoses Not on filedocumented in this encounter Additional Source Comments The information contained in this document represents components of the legal health record. It is not the complete legal health record.[facility]
[2025-02-25 11:58] LABS: Appearance Urine Clear; Glucose Urine UA Negative (Negative); PH 6.0 (5.0-9.0); Specific Gravity - Urine >= 1.030 (1.005-1.025); UMIC TRIGGER UA YES
[2025-02-25 13:00] LABS: Iron 94 mcg/dL (30-160); Percent Iron Saturation 39 % (15-50); Total Iron Binding Capacity 239 mcg/dL (228-428); Unsaturated Iron Binding 145 ug/dL
[2025-02-25 13:01] LABS: Protein/Creatinine Ratio, Ur 0.06 (<0.2); Total Protein Urine Random 13 mg/dL (<12)
[2025-02-25 13:07] LABS: Ferritin 43 ng/mL (10-250)
--- OUTSIDE RECORDS SUMMARY | 2025-02-25 14:41 | XMS_ITS | Encounter Summary ---
Author Organization [facility] Address [address] [place] [address] [place] [address] Phone Care Team Providers Care Intermodal Customer Service Name Role Phone Nando Del Rosario MD Primary Care Prov ider Juarez Ziegler MD Unavailable [phone] Encounter Details Date Type Department Care Team (Late st Contact Info) Description 08/05/2019 Procedure Pass [facility] [place], Ct Scan - [address] [address] Social History Tobacco Use Types Packs/Day Years [...] on filedocumented in this encounter Care Teams Intermodal Customer Service Relationship Specialty Start Date End Date Nando Del Rosario MD [address] [place] [address] [email or web address] PCP - General 12/12/16 Juarez Ziegler MD [address] [place] [address] [email or web address] PCP - Hematology/Oncology Medical Oncology 05/31/19 documented as of this encounter Additional Source Comments The information contained in this document represents components of the legal health record. It is not the complete legal health record.[facility]
--- OUTSIDE RECORDS SUMMARY | 2025-02-25 14:41 | XMS_ITS | Encounter Summary ---
Author Organization [facility] Address [address] [place] [address] Phone Care Team Providers Care Box Spring Maker Name Role Phone Nando Del Rosario MD Primary Care Prov ider Juarez Ziegler MD Unavailable [phone] Encounter Details Date Type Department Care Team (Late st Contact Info) Description 03/27/2019 Ancillary Orders Virtual Department 30 [place] [address] Naa Rico BOILER COVERER HELPER [address] [place], [place] [phone] Abnormal findings on diagnostic imaging of breast [...] breast documented in this encounter Care Teams Box Spring Maker Relationship Specialty Start Date End Date Nando Del Rosario MD 238 [place] [address] [email or web address] PCP - General 12/12/16 Juarez Ziegler MD [address] [place] [address] [email or web address] PCP - Hematology/Oncology Medical Oncology 05/31/19 documented as of this encounter Additional Source Comments The information contained in this document represents components of the legal health record. It is not the complete legal health record.[facility]
--- OUTSIDE RECORDS SUMMARY | 2025-02-25 14:41 | XMS_ITS | Encounter Summary ---
Author Organization [facility] Address [address] [place] [address] [place] [address] Phone Care Team Providers Care Antique Furniture Repairer Name Role Phone Nando Del Rosario MD Primary Care Prov ider Juarez Ziegler MD Unavailable [phone] Encounter Details Date Type Department Care Team (Late st Contact Info) Description 08/05/2019 Procedure Pass [facility], Ct Scan - [address] [address] Social History Tobacco Use Types Packs/Day Years [...] on filedocumented in this encounter Care Teams Antique Furniture Repairer Relationship Specialty Start Date End Date Nando Del Rosario MD [address] [place] [address] [email or web address] PCP - General 12/12/16 Juarez Ziegler MD 30 [place] [address] [email or web address] PCP - Hematology/Oncology Medical Oncology 05/31/19 documented as of this encounter Additional Source Comments The information contained in this document represents components of the legal health record. It is not the complete legal health record.[facility]
--- OUTSIDE RECORDS SUMMARY | 2025-02-25 14:41 | XMS_ITS | Encounter Summary ---
Author Organization [facility] Address [address] [place] [address] [place] [address] Phone Care Team Providers Care Racing Manager Name Role Phone Nando Del Rosario MD Primary Care Prov ider Juarez Ziegler MD Unavailable [phone] Encounter Details Date Type Department Care Team (Late st Contact Info) Description 03/26/2019 Procedure Pass [facility] Endoscopy Admitting Dept Virtual Department 30 [place] [address] Social History Tobacco Use Types Packs/Day Years [...] on filedocumented in this encounter Care Teams Racing Manager Relationship Specialty Start Date End Date Nando Del Rosario MD 238 [place] [address] [email or web address] PCP - General 12/12/16 Juarez Ziegler MD 30 [place] [address] [email or web address] PCP - Hematology/Oncology Medical Oncology 05/31/19 documented as of this encounter Additional Source Comments The information contained in this document represents components of the legal health record. It is not the complete legal health record.[facility]
--- OUTSIDE RECORDS SUMMARY | 2025-02-25 14:41 | XMS_ITS | Encounter Summary ---
Author Organization [facility] Address [address] [place] [address] [place] [address] Phone Care Team Providers Care Metal Box Maker Name Role Phone Nando Del Rosario MD Primary Care Prov ider Juarez Ziegler MD Unavailable [phone] Encounter Details Date Type Department Care Team (Late st Contact Info) Description 01/08/2021 Procedure Pass [facility], [address] [address] Social History Tobacco Use Types Packs/Day Years [...] on filedocumented in this encounter Care Teams Metal Box Maker Relationship Specialty Start Date End Date Nando Del Rosario MD [address] [place] [address] [email or web address] PCP - General 12/12/16 Juarez Ziegler MD 30 [place] [address] [email or web address] PCP - Hematology/Oncology Medical Oncology 05/31/19 documented as of this encounter Additional Source Comments The information contained in this document represents components of the legal health record. It is not the complete legal health record.[facility]
--- OUTSIDE RECORDS SUMMARY | 2025-02-25 14:41 | XMS_ITS | Encounter Summary ---
Author Organization [facility] Address [address] [place] [address] [place] [address] Phone Care Team Providers Care Exhaust And Muffler Repairer Name Role Phone Nando Del Rosario MD Primary Care Prov ider Juarez Ziegler MD Unavailable [phone] Encounter Details Date Type Department Care Team (Late st Contact Info) Description 03/13/2019 Procedure Pass [facility], [facility] 30 [place] [address] Social History Tobacco Use Types Packs/Day Years [...] on filedocumented in this encounter Care Teams Exhaust And Muffler Repairer Relationship Specialty Start Date End Date Nando Del Rosario MD [address] [place] [phone] PCP - General 12/12/16 Juarez Ziegler MD 30 [place] [address] [email or web address] PCP - Hematology/Oncology Medical Oncology 05/31/19 documented as of this encounter Additional Source Comments The information contained in this document represents components of the legal health record. It is not the complete legal health record.[facility]
--- OUTSIDE RECORDS SUMMARY | 2025-02-25 14:41 | XMS_ITS | Clinical Summary ---
Author Organization [facility] Address [address] [facility] [address] [place] [address] Phone Care Team Providers Care Adhesive Bandage Machine Operator Name Role Phone Nando Del Rosario MD Primary Care Prov ider Juarez Ziegler MD Unavailable [phone] Allergies Active Allergy Reactions Criticality Noted Date Comments Other 04/18/2018 Seasonal allergies Medications traZODone (DESYREL) 50 MG tabletIndications :takes about 2 times a month Take 50 mg by mouth nightly at bedtime as needed. Active omega 6-rhf-gqv-fish oil 1,000 mg (120 mg-180 mg) Cap [...] PM EST): Take exactly as prescribed. See duplicate maker regularly at least every 6-12 months. Daily [...] consultation with Dr. Chucky Bundy MD at [facility] in [facility] who is focusing on holistic approach. She [...] VACCINES (50+ years) (2 of 2 - PPSV23, PCV20, or PCV21) 05/07/2020 03/12/2020 MAMMOGRAM 03/10/2023 03/10/2021, 07/2019, 02/01/2019, Additional history exists SCREENING FOR DIABETES 02/16/2024 02/15/2021 INFLUENZA VACCINE (#1) 2024 , 01/07/2021, 11/25/2019, Additional history exists COVID-19 VACCINE ( season) 2024 12/13/2021, 12/13/2021, 06/01/2021, Additional history exists Adult Td,Tdap Booster 11/17/2024 11/17/2014, 010 PAP SMEAR 05/16/2025 05/16/2022, 02/27, 08/24/2017 COLONOSCOPY 06/30/2025 06/30/2022 COLORECTAL CANCER SCREENING 06/30/2025 HEPATITIS C SCREENING Completed 04/20/2018 , 04/20/2018, 04/20/2018 ZOSTER VACCINES Completed 03/24/2020, 11/25/2019 SMOKING [...] this topic Medical Devices Implanted Type Area [employer] [place] Device Identifier Shelf Expiration Date Model / Serial / Lot Marker Site Biopsy Stainless Steel [id number]/[id number] - [id number] Implanted:Qty: 1 on 04/09/2019 by Tanmay Zimmer MD at [facility] Right: Breast [employer] [id number] / / Procedures Procedure [...] Bruno MD - 06/30/2022 8:58 AM EDT [facility] Patient Name: Caroline Cabrera Attending MD:: TABATHA BRUNO MD, Procedure Date: 06/30/2022 8:58 AM Date of : 1960 Age: 62 Admit Type: Outpatient Gender: Female Room: [place] [address] Referring MD: Nando Hanks MD Exam Type: [...] monitored continuously. The Olympus adult variable colonoscope [id number] #1 was introduced through the anus and [...] 8:58 AM Procedure Code(s): --- Professional --- 38211, Colonoscopy, flexible; diagnostic, including collection of specimen(s) by brushing or washing, when performed (separateprocedure) --- Technical --- 97113, Colonoscopy, flexible; diagnostic, including collection of specimen(s) by brushing or washing, when performed (separateprocedure) Diagnosis Code(s): --- Professional --- K64.9, Unspecified hemorrhoids Z80.0, Family history of malignant neoplasm of digestive organs --- Technical --- K64.9, Unspecified hemorrhoids Z80.0, Family history of malignant neoplasm of digestive organs CPT copyright 2021 [employer]. All rights reserved. The codes documented in this report are preliminary and upon stummel selector reviewmay be revised to meet current compliance requirements. Procedure Date: 06/30/2022 8:58:[address] [place] [address] Nando Hanks MD GI PROCEDURE ORDER MARGARET Final Result * Pap Test (05/16/2022 12:00 AM EDT) 05/16/2022 05/17/2022 9:1 9 AM EDT Narrative SEE NARRATIVE - 05/19/2022 11:12 AM EDT [address] [address] Computer Education Professor: Caroline Hamilton MD COMMUNITY HEALTH EDUCATOR Cytology Report FINAL DIAGNOSIS A. PAP SMEAR [...] 59, 66, 68) Note: Testing performed by [employer] HR-HPV analysis. Clinical correlation is advised. This HPV test was performed at [facility], [address] [place] [address]. This test has been FDA approved for SurePath cervical cytology specimens. The accuracy and precision of this test for all other specimen sources has been verified in the Cytopathology Laboratory of the [facility] and has not been cleared or approved by the U.S. Food and Drug Administration. Clinical correlation is advised. CLINICAL HISTORY Date of Last Menstrual Period: AGED 51 Menstrual History: Post Menopausal Other Clinical Conditions: Screening Pap Previous Unsatisfactory SPECIMEN SOURCE A: PAP SMEAR (SUREPATH) CE Patient Name: CAROLINE CABRERA : 1960 (Age: 62) Sex: F Institution: [facility] Location: [facility] Date of Collection: 05/16/2022 Date [...] Months Right Mammography Screening us Naa Rico NP IMG MG EXAMS Final Result * Hepatitis C antibody, qualitative (04/20/2018 8:59 AM EST) HCV Negative Negative [facility] Comment: This is a screening test and should be confirmed with molecular testing Blood 04/20/2018 8:59 AM EST 04/20/2018 9:17 AM EST us Jody Quiroz MD LAB BLOOD BKR ORDERABLES Final Result [facility] [address] [place] [address] from Last 3 Months or Most Recently Relevant to Health Maintenance Insurance [facility] MEDICARE PPO BLUE REPLACEMENT [facility] MEDICARE PPO BLUE REPLACEMENT [facility] MEDICARE PPO BLUE REPLACEMENT [facility] MEDICARE PPO BLUE [place]PLAC[place] [address] [place] [address] MEDICARE PPO BLUE REPLACEMENT [facility] MEDICARE PPO BLUE REPLACEMENT [facility] MEDICARE PPO BLUE REPLACEMENT [place] [address] [place] [address] MEDICARE PPO BLUE [place]PLACEMENT [place] [address] MEDICARE PPO BLUE REPLACEMENT Care Teams Adhesive Bandage Machine Operator Relationship Specialty Start Date End Date Nando Del Rosario MD [address] [place] [phone] PCP - General 12/12/16 Juarez Ziegler MD [address] [place] [address] [email or web address] PCP - Hematology/Oncology Medical Oncology 05/31/19 Additional Source Comments The information contained in this document represents components of the legal health record. It is not the complete legal health record.[facility]
--- OUTSIDE RECORDS SUMMARY | 2025-02-25 14:41 | XMS_ITS | Encounter Summary ---
Author Organization [facility] Address [address] [place] [address] [place] [address] Phone Care Team Providers Care Computer Discovery Teacher Name Role Phone Nando Del Rosario MD Primary Care Prov ider Juarez Ziegler MD Unavailable [phone] Encounter Details Date Type Department Care Team (Late st Contact Info) Description 01/07/2021 Transcribe Orders Virtual Department 30 [place] [address] Naa Rico LINER INSTALLER [address] [place], [place] [phone] Breast screening (Primary Dx) Social History Tobacco [...] unspecified documented in this encounter Care Teams Computer Discovery Teacher Relationship Specialty Start Date End Date Nando Del Rosario MD 238 [place] [address] [email or web address] PCP - General 12/12/16 Juarez Ziegler MD [address] [place] [address] [email or web address] PCP - Hematology/Oncology Medical Oncology 05/31/19 documented as of this encounter Additional Source Comments The information contained in this document represents components of the legal health record. It is not the complete legal health record.[facility]
--- OUTSIDE RECORDS SUMMARY | 2025-02-25 14:41 | XMS_ITS | Encounter Summary ---
Author Organization [facility] Address [address] [facility] [address] [place] [address] Phone Care Team Providers Care Classifications Officer Cc/Cm Name Role Phone Nando Del Rosario MD Primary Care Prov ider Juarez Ziegler MD Unavailable Encounter Details Date Type Department Care Team (Late st Contact Info) Description 03/12/2019 Ancillary Orders [facility],Outside Imaging 30 [place] [address] System, Provider Not In, PhD [address] [address] Social History Tobacco Use Types Packs/Day Years [...] on filedocumented in this encounter Care Teams Classifications Officer Cc/Cm Relationship Specialty Start Date End Date Nando Del Rosario MD [address] [place] [phone] [email or web address] PCP - General 12/12/16 Juarez Ziegler MD [address] [place] [address] [email or web address] PCP - Hematology/Oncology Medical Oncology 05/31/19 documented as of this encounter Additional Source Comments The information contained in this document represents components of the legal health record. It is not the complete legal health record.[facility]
--- OUTSIDE RECORDS SUMMARY | 2025-02-25 14:41 | XMS_ITS | Encounter Summary ---
Author Organization [facility] Address [address] [facility] [address] [place] [address] Phone Care Team Providers Care Systems Programmer Analyst Name Role Phone Nando Del Rosario MD Primary Care Prov ider Juarez Ziegler MD Unavailable Encounter Details Date Type Department Care Team (Late st Contact Info) Description 04/19/2018 Transcribe Orders [facility] Specimen Processing 30 [place] [address] Nando Del Rosario MD 238 [place], [place] [phone] [email or web address] Social History Tobacco Use Types Packs/Day [...] on filedocumented in this encounter Care Teams Systems Programmer Analyst Relationship Specialty Start Date End Date Nando Del Rosario MD 238 [place] [address] [email or web address] PCP - General 10/16/17 Juarez Ziegler MD [address] [place] [address] [email or web address] PCP - Hematology/Oncology Medical Oncology 05/31/19 documented as of this encounter Additional Source Comments The information contained in this document represents components of the legal health record. It is not the complete legal health record.[facility]
--- OUTSIDE RECORDS SUMMARY | 2025-02-25 14:41 | XMS_ITS | Encounter Summary ---
Author Organization [facility] Address [address] [facility] [address] [place] [address] Phone Care Team Providers Care Welder Gun Name Role Phone Nando Del Rosario MD Primary Care Prov ider Juarez Ziegler MD Unavailable [phone] Encounter Details Date Type Department Care Team (Late st Contact Info) Description 04/19/2019 Transcribe Orders Virtual Department 30 [place] [address] Naa Rico CATTLE SHIPPER [address] [place], [place] [phone] Systemic involvement of connective tissue (Primary Dx) [...] Primary documented in this encounter Care Teams Welder Gun Relationship Specialty Start Date End Date Nando Del Rosario MD 238 [place] [phone] [email or web address] PCP - General 12/12/16 Juarez Ziegler MD [address] [place] [address] [email or web address] PCP - Hematology/Oncology Medical Oncology 05/31/19 documented as of this encounter Additional Source Comments The information contained in this document represents components of the legal health record. It is not the complete legal health record.[facility]
--- OUTSIDE RECORDS SUMMARY | 2025-02-25 14:41 | XMS_ITS | Encounter Summary ---
Author Organization [facility] Address [address] [place] [address] [place] [address] Phone Care Team Providers Care Research Programmer Name Role Phone Nando Del Rosario MD Primary Care Prov ider Juarez Ziegler MD Unavailable [phone] Encounter Details Date Type Department Care Team (Late st Contact Info) Description 03/27/2019 Procedure Pass [facility] 30 [place] [address] Social History Tobacco Use Types Packs/Day Years [...] on filedocumented in this encounter Care Teams Research Programmer Relationship Specialty Start Date End Date Nando Del Rosario MD 238 [place] [address] [email or web address] PCP - General 12/12/16 Juarez Ziegler MD 30 [place] [address] [email or web address] PCP - Hematology/Oncology Medical Oncology 05/31/19 documented as of this encounter Additional Source Comments The information contained in this document represents components of the legal health record. It is not the complete legal health record.[facility]
--- OUTSIDE RECORDS SUMMARY | 2025-02-25 14:41 | XMS_ITS | Encounter Summary ---
Author Organization [facility] Address [address] [place] [address] [place] [address] Phone Care Team Providers Care Vice President Pharmacy Name Role Phone Nando Del Rosario MD Primary Care Prov ider Juarez Ziegler MD Unavailable [phone] Encounter Details Date Type Department Care Team (Late st Contact Info) Description 04/23/2019 Transcribe Orders Virtual Department 30 [place] [address] Naa Rico MOUNTED POLICE 238 [place], [place] [phone] Disorder of connective tissue (Primary Dx) Social [...] disease documented in this encounter Care Teams Vice President Pharmacy Relationship Specialty Start Date End Date Nando Del Rosario MD [address] [place] [address] [email or web address] PCP - General 12/12/16 Juarez Ziegler MD [address] [place] [address] [email or web address] PCP - Hematology/Oncology Medical Oncology 05/31/19 documented as of this encounter Additional Source Comments The information contained in this document represents components of the legal health record. It is not the complete legal health record.[facility]
--- OUTSIDE RECORDS SUMMARY | 2025-02-25 14:41 | XMS_ITS | Encounter Summary ---
Author Organization [facility] Address [address] [facility] [address] [place] [address] Phone Care Team Providers Care Airplane Tester Name Role Phone Nando Del Rosario MD Primary Care Prov ider Juarez Ziegler MD Unavailable [phone] Encounter Details Date Type Department Care Team (Late st Contact Info) Description 06/30/2022 Procedure Pass [facility] Endoscopy Admitting Dept Virtual Department 30 [place] [address] Social History Tobacco Use Types Packs/Day Years [...] on filedocumented in this encounter Care Teams Airplane Tester Relationship Specialty Start Date End Date Nando Del Rosario MD [address] [place] [phone] [email or web address] PCP - General 12/12/16 Juarez Ziegler MD 30 [place] [address] [email or web address] PCP - Hematology/Oncology Medical Oncology 05/31/19 documented as of this encounter Additional Source Comments The information contained in this document represents components of the legal health record. It is not the complete legal health record.[facility]
--- OUTSIDE RECORDS SUMMARY | 2025-02-25 14:41 | XMS_ITS | Encounter Summary ---
Author Organization [facility] Address [address] [facility] [address] [place] [address] Phone Care Team Providers Care Rail Operations Controller Name Role Phone Nando Del Rosario MD Primary Care Prov ider Juarez Ziegler MD Unavailable [phone] Encounter Details Date Type Department Care Team (Late st Contact Info) Description 03/13/2019 Transcribe Orders Virtual Department 30 [place] [address] Naa Rico NP 238 [place] [address] Other abnormal and inconclusive findings on diagnostic [...] in 2 of the cores, certainly a cordage sales representative sample. A D-shaped metallic marker [...] well without any immediate complications. us Naa Rcio PROFESSIONAL DEVELOPMENT INSTRUCTOR IMG BI IRP GUIDED BREAST PROC Edited [...] to studies from January and February from [facility]. No significant hematoma is apparent on [...] when pathologic analysis is complete. Naa Rico PROFESSIONAL DEVELOPMENT INSTRUCTOR IMG BI IRP GUIDED BREAST PROC Edited [...] unspecified documented in this encounter Care Teams Rail Operations Controller Relationship Specialty Start Date End Date Nando Del Rosario MD [address] [place] [phone] [email or web address] PCP - General 12/12/16 Juarez Ziegler MD 30 [place] [address] PCP - Hematology/Oncology Medical Oncology 05/31/19 documented as of this encounter Additional Source Comments The information contained in this document represents components of the legal health record. It is not the complete legal health record.[facility]
[2025-02-26 03:44] LABS: Transferrin 212 mg/dL (188-341)
== END 2025-02-25 10:51 | disposition home or self-care (01) ==
LOC: HO.LAB 10:50
PROVIDERS: PCP Family Medicine; Visit Provider Student in an Organized Health Care Education/Training Program
DX: Z01.84 Encounter for antibody response examination (principal); M35.1 Other overlap syndromes; D64.9 Anemia, unspecified; M35.00 Sjogren syndrome, unspecified; D50.9 Iron deficiency anemia, unspecified
CPT/HCPCS: 36415; 81001; 82570; 82728; 83540; 84156; 84165; 84466; 85652; 86140; 86160; 86225; 86431